=== PATIENT | female | born 1965 | race Caucasian/White ===

== ENCOUNTER → 2016-09-24 | Outpatient (CLI) | payer BC ==
[2016-09-24 13:38] LABS: Basophils % (A) 1 %; CHCM 33.6; Eosinophils # (A) 0.1 k/uL (0-0.7); Eosinophils % (A) 2 %; HCT 41.8 % (34.0-46.0); HDW 2.93; HGB 13.6 gm/dL (11.4-16.0); Luc # (Auto) 0.07; Luc % (Auto) 2; Lymphocytes # (A) 0.4 k/uL (1.0-4.8); Lymphocytes % (A) 13 %; MCH 31.2 pg (25.0-35.0); MCHC 32.5 g/dL (31.0-37.0); MCV 95.8 fL (80.0-100.0); Mean Platelet Volume 6.4; Monocytes # (A) 0.1 k/uL (0-1.0); Monocytes % (A) 4 %; Neutrophils # (A) 2.4 k/uL (1.3-7.7); Neutrophils % (A) 77 %; RBC 4.36 m/uL (3.80-5.40); WBC 3.1 k/uL (3.8-10.6); WBC (Perox) 3.26
[2016-09-24 14:07] LABS: ALT 31 U/L (9-52); AST 20 U/L (14-36); Alkaline Phosphatase 53 U/L (38-126); Anion Gap 11 mmol/L; Blood Urea Nitrogen 12 mg/dL (7-17); Calcium 9.5 mg/dL (8.4-10.2); Carbon Dioxide 27 mmol/L (22-30); Chloride 102 mmol/L (98-107); Glucose 87 mg/dL (74-99); Non-African American GFR(MDRD) 58 (>60 ml/min/1.73 sqM); Potassium 4.9 mmol/L (3.5-5.1); Sodium 140 mmol/L (137-145); Total Bilirubin 0.8 mg/dL (0.2-1.3); Total Protein 7.1 g/dL (6.3-8.2)
== END | disposition home or self-care (01) ==
LOC: LABWHC1 12:55
PROVIDERS: ATTEND Physician Assistant
DX: K50.90 Crohn's disease, unspecified, without complications (principal)
CPT/HCPCS: 36415; 80053; 85025

== ENCOUNTER → 2016-10-13 | Outpatient (CLI) | payer BC ==
--- NOTE | 2016-10-13 15:04 | BD ---
EXAMINATION TYPE: MG DEXA axial skeleton. DATE OF EXAM: 10/13/2016 2:53 PM COMPARISON: NONE CLINICAL HISTORY: POST MENOPAUSAL Height: 5'5 1/2 Weight: 137 FRAX RISK QUESTIONS: Alcohol (3 or more units per day): no Family History (Parent hip fracture): no Glucocorticoids (More than 3mos): yes (Ex: prednisone, prednisolone, methylprednisolone, dexamethasone, and hydrocortisone). History of Fracture in Adulthood: no Secondary Osteoporosis: 1. Type 1 Diabetes: no 2. Hyperthyroidism: no 3. Menopause before 45: no 4. Malnutrition: no 5. Chronic liver disease: no Rheumatoid Arthritis: no Current Tobacco Use: no RISK FACTORS HISTORY OF: Diet low in dairy products/other sources of calcium: Postmenopausal woman: Take estrogen and/or progesterone medications: How lon months MEDICATIONS: Prednisone or other steroids: How Long: off and on for 20 years because of chrons disease Additional Medications: vitamin D , B12 shot, xanax, anxiety , chrons disease, pain medication Additional History: chrons, post menopausal EXAM MEASUREMENTS: Bone mineral densitometry was performed using the [employer] System. Bone mineral density as measured about the Lumbar spine is: ----- L1-L4(G/cm2): 1.208 T Score Values are as follows: ----- L2: 0.0 ----- L3: 0.4 ----- L4: -0.3 ----- L1-L4: 0.2 Bone mineral density about the R hip (g/cm2): 0.935 Bone mineral density about the L hip (g/cm2): 0.898 T Score values are as follows: -----R Neck: -0.7 -----L Neck: -1.0 -----R Intertrochanter: -1.7 -----L Intertrochanter: -1.7 IMPRESSION: Osteopenia (T Score between -2.5 and -1 as noted by T :score values :Grady Hips There is slightly increased risk of fracture and the patient may be considered for treatment. Re-Screen 1-2 years. NOTE: T-SCORE=SD OF THE YOUNG ADULT MEAN.
--- NOTE | 2016-10-14 10:28 | MM ---
Reason for exam: screening (asymptomatic). Last mammogram was performed 1 year ago. History: Patient is postmenopausal, has history of other cancer at age 35, and is nulliparous. Family history of premenopausal breast cancer in paternal cousin at age 45. Took hormonal contraceptives for 4 years. Taking estrogen for 4 months beginning at age 50. Taking progesterone for 4 months beginning at age 50. Physical Findings: A clinical breast exam by your physician is recommended on an annual basis and results should be correlated with mammographic findings. MG 3D Screening Mammo W/Cad Bilateral CC and MLO view(s) were taken. Prior study comparison: October 09, 2015, bilateral MG 3d screening mammo w/cad. September 20, 2014, bilateral MG screening mammo w CAD. The breast tissue is heterogeneously dense. This may lower the sensitivity of mammography. ASSESSMENT: Negative, BI-RAD 1 RECOMMENDATION: Routine screening mammogram of both breasts in 1 year.
== END | disposition home or self-care (01) ==
LOC: RADMAMWWP 14:13
PROVIDERS: ATTEND Obstetrics & Gynecology
DX: Z12.31 Encounter for screening mammogram for malignant neoplasm of breast (principal); M85.852 Other specified disorders of bone density and structure, left thigh; M85.851 Other specified disorders of bone density and structure, right thigh; N95.1 Menopausal and female climacteric states
CPT/HCPCS: 77080; 77063; G0202

== ENCOUNTER → 2017-04-07 | Outpatient (CLI) | payer BC ==
[2017-04-07 11:13] LABS: Basophils % (A) 1 %; CH 33.2; CHCM 33.8; Eosinophils # (A) 0.6 k/uL (0-0.7); Eosinophils % (A) 13 %; HCT 47.4 % (34.0-46.0); HDW 2.78; Luc # (Auto) 0.19; Luc % (Auto) 4; Lymphocytes # (A) 0.6 k/uL (1.0-4.8); Lymphocytes % (A) 14 %; MCH 33.2 pg (25.0-35.0); MCHC 33.7 g/dL (31.0-37.0); MCV 98.5 fL (80.0-100.0); Mean Platelet Volume 7.1; Monocytes # (A) 0.2 k/uL (0-1.0); Monocytes % (A) 5 %; Neutrophils # (A) 2.8 k/uL (1.3-7.7); Neutrophils % (A) 63 %; RBC 4.82 m/uL (3.80-5.40); RDW 13.8 % (11.5-15.5); WBC 4.4 k/uL (3.8-10.6); WBC (Perox) 4.63
[2017-04-07 11:22] LABS: ALT 33 U/L (9-52); AST 30 U/L (14-36); Alkaline Phosphatase 68 U/L (38-126); Anion Gap 10 mmol/L; Blood Urea Nitrogen 12 mg/dL (7-17); Calcium 9.6 mg/dL (8.4-10.2); Carbon Dioxide 27 mmol/L (22-30); Chloride 106 mmol/L (98-107); Glucose 88 mg/dL (74-99); Non-African American GFR(MDRD) >60 (>60 ml/min/1.73 sqM); Potassium 4.6 mmol/L (3.5-5.1); Sodium 143 mmol/L (137-145); Total Bilirubin 0.4 mg/dL (0.2-1.3); Total Protein 7.6 g/dL (6.3-8.2)
== END | disposition home or self-care (01) ==
LOC: LABWHC1 10:40
PROVIDERS: ATTEND Physician Assistant
DX: K50.90 Crohn's disease, unspecified, without complications (principal)
CPT/HCPCS: 36415; 80053; 85025

== ENCOUNTER → 2017-10-08 | Outpatient (CLI) | payer BC ==
[2017-10-08 13:04] LABS: Basophils % (A) 1 %; Eosinophils # (A) 0.4 k/uL (0-0.7); Eosinophils % (A) 9 %; HCT 42.7 % (34.0-46.0); HGB 14.3 gm/dL (11.4-16.0); Lymphocytes # (A) 0.5 k/uL (1.0-4.8); Lymphocytes % (A) 12 %; MCHC 33.6 g/dL (31.0-37.0); MCV 98.2 fL (80.0-100.0); Mean Platelet Volume 6.6; Monocytes # (A) 0.1 k/uL (0-1.0); Monocytes % (A) 3 %; Neutrophils # (A) 3.5 k/uL (1.3-7.7); Neutrophils % (A) 75 %; Platelet Count 305 k/uL (150-450); RBC 4.35 m/uL (3.80-5.40); RDW 14.8 % (11.5-15.5); WBC 4.6 k/uL (3.8-10.6)
[2017-10-08 13:27] LABS: ALT 13 U/L (9-52); AST 19 U/L (14-36); Albumin 4.3 g/dL (3.5-5.0); Alkaline Phosphatase 58 U/L (38-126); Anion Gap 9 mmol/L; Blood Urea Nitrogen 14 mg/dL (7-17); Calcium 9.9 mg/dL (8.4-10.2); Carbon Dioxide 30 mmol/L (22-30); Chloride 103 mmol/L (98-107); Glucose 90 mg/dL (74-99); Potassium 4.4 mmol/L (3.5-5.1); Sodium 142 mmol/L (137-145); Total Protein 7.3 g/dL (6.3-8.2)
== END | disposition home or self-care (01) ==
LOC: LABWHC1 12:46
PROVIDERS: ATTEND Physician Assistant
DX: K50.90 Crohn's disease, unspecified, without complications (principal)
CPT/HCPCS: 36415; 80053; 85025

== ENCOUNTER → 2017-11-03 | Outpatient (CLI) | payer BC ==
--- NOTE | 2017-11-04 14:41 | MM ---
Reason for exam: screening (asymptomatic). Last mammogram was performed 1 year and 1 month ago. History: Patient is postmenopausal, has history of other cancer at age 35, and is nulliparous. Family history of premenopausal breast cancer in paternal cousin at age 45. Took hormonal contraceptives for 4 years. Taking estrogen for 4 months beginning at age 50. Taking progesterone for 4 months beginning at age 50. Physical Findings: A clinical breast exam by your physician is recommended on an annual basis and results should be correlated with mammographic findings. MG 3D Screening Mammo W/Cad Bilateral CC and MLO view(s) were taken. Prior study comparison: October 13, 2016, bilateral MG 3d screening mammo w/cad. October 09, 2015, bilateral MG 3d screening mammo w/cad. The breast tissue is heterogeneously dense. This may lower the sensitivity of mammography. No significant changes when compared with prior studies. ASSESSMENT: Benign, BI-RAD 2 RECOMMENDATION: Routine screening mammogram of both breasts in 1 year.
== END | disposition home or self-care (01) ==
LOC: RADMAMWWP 16:28
PROVIDERS: ATTEND Obstetrics & Gynecology
DX: Z12.31 Encounter for screening mammogram for malignant neoplasm of breast (principal); Z80.3 Family history of malignant neoplasm of breast
CPT/HCPCS: 77063; 77067

== ENCOUNTER → 2018-04-06 | Outpatient (CLI) | payer BC ==
[2018-04-06 11:53] LABS: ALT 27 U/L (9-52); AST 27 U/L (14-36); Albumin 4.3 g/dL (3.5-5.0); Alkaline Phosphatase 52 U/L (38-126); Anion Gap 8 mmol/L; Blood Urea Nitrogen 11 mg/dL (7-17); Calcium 9.8 mg/dL (8.4-10.2); Carbon Dioxide 29 mmol/L (22-30); Chloride 103 mmol/L (98-107); Cholesterol 201 mg/dL (<200); Glucose 89 mg/dL (74-99); HDL Cholesterol 68 mg/dL (40-60); LDL Cholesterol,Calculated 119 mg/dL (0-99); Potassium 4.2 mmol/L (3.5-5.1); Sodium 140 mmol/L (137-145); Total Bilirubin 0.9 mg/dL (0.2-1.3); Total Protein 7.2 g/dL (6.3-8.2); Triglycerides 71 mg/dL (<150)
[2018-04-06 12:03] LABS: Basophils % (A) 0 %; Eosinophils # (A) 0.4 k/uL (0-0.7); Eosinophils % (A) 9 %; HCT 42.3 % (34.0-46.0); HGB 14.2 gm/dL (11.4-16.0); Lymphocytes # (A) 0.6 k/uL (1.0-4.8); Lymphocytes % (A) 14 %; MCH 31.9 pg (25.0-35.0); MCHC 33.6 g/dL (31.0-37.0); Monocytes # (A) 0.2 k/uL (0-1.0); Monocytes % (A) 4 %; Neutrophils % (A) 71 %; Platelet Count 287 k/uL (150-450); RBC 4.46 m/uL (3.80-5.40); RDW 13.7 % (11.5-15.5); WBC 4.2 k/uL (3.8-10.6)
== END | disposition home or self-care (01) ==
LOC: LABWHC1 11:12
PROVIDERS: ATTEND Physician Assistant
DX: K50.90 Crohn's disease, unspecified, without complications (principal)
CPT/HCPCS: 36415; 80053; 80061; 82607; 85025

== ENCOUNTER → 2018-09-29 | Outpatient (CLI) | payer BC ==
[2018-09-29 12:43] LABS: Basophils % (A) 1 %; Eosinophils # (A) 0.3 k/uL (0-0.7); Eosinophils % (A) 7 %; HCT 43.9 % (34.0-46.0); HGB 14.6 gm/dL (11.4-16.0); Lymphocytes # (A) 0.7 k/uL (1.0-4.8); Lymphocytes % (A) 15 %; MCH 32.9 pg (25.0-35.0); MCHC 33.3 g/dL (31.0-37.0); MCV 98.9 fL (80.0-100.0); Macrocytosis Slight; Mean Platelet Volume 6.4; Monocytes # (A) 0.1 k/uL (0-1.0); Monocytes % (A) 3 %; Neutrophils # (A) 3.2 k/uL (1.3-7.7); Neutrophils % (A) 73 %; Platelet Count 332 k/uL (150-450); RBC 4.44 m/uL (3.80-5.40); RDW 15.7 % (11.5-15.5); WBC 4.4 k/uL (3.8-10.6)
[2018-09-29 19:18] LABS: Albumin 4.6 g/dL (3.80-4.90); Albumin/Globulin Ratio 1.92 (1.60-3.17); Anion Gap 10.9 mmol/L (4.00-12.00); Calcium 9.9 mg/dL (8.7-10.3); Carbon Dioxide 26.1 mmol/L (21.6-31.8); Globulin 2.4 g/dL (1.6-3.3); Total Bilirubin 0.9 mg/dL (0.2-1.2)
== END | disposition home or self-care (01) ==
LOC: LABWHC1 11:59
PROVIDERS: ATTEND Physician Assistant
DX: K50.90 Crohn's disease, unspecified, without complications (principal)
CPT/HCPCS: 36415; 80053; 82607; 85025

== ENCOUNTER → 2018-09-29 | Outpatient (CLI) | payer BC ==
--- NOTE | 2018-09-29 14:33 | BD ---
EXAMINATION TYPE: Axial Bone Density DATE OF EXAM: 09/29/2018 COMPARISON: NONE CLINICAL HISTORY: Height: 66 Weight: 122.9 FRAX RISK QUESTIONS: Alcohol (3 or more units per day): no Family History (Parent hip fracture): no Glucocorticoids (More than 3mos): no (Ex: prednisone, prednisolone, methylprednisolone, dexamethasone, and hydrocortisone). History of Fracture in Adulthood: no Secondary Osteoporosis: 1. Type 1 Diabetes: no 2. Hyperthyroidism: no 3. Menopause before 45: no 4. Malnutrition: yes 5. Chronic liver disease: no Rheumatoid Arthritis: no Current Tobacco Use: no RISK FACTORS HISTORY OF: Family History of Osteoporosis: no Active: yes Diet low in dairy products/other sources of calcium: no Postmenopausal woman: around age 46 Take estrogen and/or progesterone medications: yes How lon years Lost more than 2 inches in height since high school: no MEDICATIONS: imuran, hydrocodone, lexapro, xanax Additional History: EXAM MEASUREMENTS: Bone mineral densitometry was performed using the [employer] System. Bone mineral density as measured about the Lumbar spine is: ----- L1-L4(G/cm2): 1.192 T Score Values are as follows: ----- L2: -0.2 ----- L3: 0.3 ----- L4: -0.2 ----- L1-L4: 0.1 Bone mineral density has: decreased- 0.8 % since study of: 10.13.2016 Bone mineral density about the R hip (g/cm2): 0.917 Bone mineral density about the L hip (g/cm2): 0.869 T Score values are as follows: -----R Neck: -0.9 -----L Neck: -1.2 -----R Total: -1.2 -----L Total: -1.6 Bone mineral density has: decreased -4.3 study of: 10.13.2016 IMPRESSION: Osteopenia bilateral hips. NOTE: T-SCORE=SD OF THE YOUNG ADULT MEAN.
--- NOTE | 2018-10-03 08:38 | MM ---
Reason for exam: screening (asymptomatic). Last mammogram was performed 11 months ago. History: Patient is postmenopausal, has history of other cancer at age 35, and is nulliparous. Family history of premenopausal breast cancer in paternal cousin at age 45. Took hormonal contraceptives for 4 years. Taking estrogen for 4 months beginning at age 50. Taking progesterone for 4 months beginning at age 50. Physical Findings: A clinical breast exam by your physician is recommended on an annual basis and results should be correlated with mammographic findings. MG 3D Screening Mammo W/Cad Bilateral CC, MLO, and XCCL view(s) were taken. Prior study comparison: November 03, 2017, bilateral MG 3d screening mammo w/cad. October 13, 2016, bilateral MG 3d screening mammo w/cad. The breast tissue is heterogeneously dense. This may lower the sensitivity of mammography. There is no discrete abnormality. ASSESSMENT: Negative, BI-RAD 1 RECOMMENDATION: Routine screening mammogram of both breasts in 1 year.
== END | disposition home or self-care (01) ==
LOC: RADMAMWWP 11:39
PROVIDERS: ATTEND Obstetrics & Gynecology
DX: Z12.31 Encounter for screening mammogram for malignant neoplasm of breast (principal); M85.851 Other specified disorders of bone density and structure, right thigh; M85.852 Other specified disorders of bone density and structure, left thigh
CPT/HCPCS: 77063; 77067; 77080

== ENCOUNTER → 2019-02-14 | Outpatient (CLI) | payer BC ==
[2019-02-14 13:45] LABS: Basophils % (A) 1 %; Eosinophils # (A) 0.1 k/uL (0-0.7); Eosinophils % (A) 3 %; HCT 41.8 % (34.0-46.0); HGB 13.7 gm/dL (11.4-16.0); Lymphocytes # (A) 0.6 k/uL (1.0-4.8); Lymphocytes % (A) 18 %; MCH 31.8 pg (25.0-35.0); MCHC 32.9 g/dL (31.0-37.0); MCV 96.5 fL (80.0-100.0); Mean Platelet Volume 6.6; Monocytes # (A) 0.2 k/uL (0-1.0); Monocytes % (A) 5 %; Neutrophils # (A) 2.3 k/uL (1.3-7.7); Neutrophils % (A) 72 %; Platelet Count 262 k/uL (150-450); RBC 4.33 m/uL (3.80-5.40); RDW 14.6 % (11.5-15.5); WBC 3.2 k/uL (3.8-10.6)
[2019-02-15 03:47] LABS: African American GFR (CKD) 73.4 (60.0-200.0); Albumin 4.2 g/dL (3.80-4.90); Albumin/Globulin Ratio 1.75 (1.60-3.17); Anion Gap 6.9 mmol/L (4.00-12.00); Calcium 9.5 mg/dL (8.7-10.3); Carbon Dioxide 28.1 mmol/L (21.6-31.8); Globulin 2.4 g/dL (1.6-3.3); Potassium 4.3 mmol/L (3.5-5.5); Total Bilirubin 0.5 mg/dL (0.3-1.2); Total Protein 6.6 g/dL (6.2-8.2)
== END | disposition home or self-care (01) ==
LOC: LABWHC1 13:02
PROVIDERS: ATTEND Physician Assistant
DX: K50.90 Crohn's disease, unspecified, without complications (principal)
CPT/HCPCS: 36415; 80053; 82607; 85025

== ENCOUNTER → 2020-02-09 | Outpatient (CLI) | payer MEDICARE ==
[2020-02-09 11:29] LABS: Basophils % (A) 1 %; Eosinophils # (A) 0.1 k/uL (0-0.7); Eosinophils % (A) 4 %; HCT 36.3 % (34.0-46.0); HGB 11.8 gm/dL (11.4-16.0); Hypochromasia Slight; Lymphocytes # (A) 0.5 k/uL (1.0-4.8); Lymphocytes % (A) 18 %; MCH 32.8 pg (25.0-35.0); MCHC 32.7 g/dL (31.0-37.0); MCV 100.3 fL (80.0-100.0); Macrocytosis Slight; Mean Platelet Volume 7.3; Monocytes # (A) 0.2 k/uL (0-1.0); Monocytes % (A) 7 %; Neutrophils # (A) 1.8 k/uL (1.3-7.7); Neutrophils % (A) 68 %; Platelet Count 320 k/uL (150-450); RBC 3.62 m/uL (3.80-5.40); WBC 2.7 k/uL (3.8-10.6)
[2020-02-09 12:35] LABS: Erythrocyte Sedimentation Rate 6 mm/hr (0-20)
[2020-02-09 17:14] LABS: ALT 16 U/L (8-44); AST 29 U/L (13-35); African American GFR (CKD) 82.8 (60.0-200.0); Albumin/Globulin Ratio 1.91 (1.60-3.17); Alkaline Phosphatase 76 U/L (41-126); BUN/Creat Ratio 15.56 Ratio (12.00-20.00); C Reactive Protein <0.4 mg/dL (0.0-0.8); Carbon Dioxide 25.4 mmol/L (21.6-31.8); Chloride 108 mmol/L (96-109); Globulin 2.2 g/dL (1.6-3.3); Glucose 79 mg/dL (70-110); Non-African American GFR(CKD) 71.5 (60.0-200.0); Potassium 3.8 mmol/L (3.5-5.5); Sodium 140 mmol/L (135-145); Total Bilirubin 0.4 mg/dL (0.3-1.2); Total Protein 6.4 g/dL (6.2-8.2)
== END | disposition home or self-care (01) ==
LOC: LABWHC1 10:04
PROVIDERS: ATTEND Physician Assistant
DX: K50.90 Crohn's disease, unspecified, without complications (principal)
CPT/HCPCS: 36415; 80053; 82607; 85025; 85652; 86140

== ENCOUNTER → 2020-03-04 | Outpatient (CLI) | payer MEDICARE ==
--- NOTE | 2020-03-06 10:23 | MM ---
Reason for exam: screening (asymptomatic). Last mammogram was performed 1 year and 5 months ago. History: Patient is postmenopausal, has history of other cancer at age 35, and is nulliparous. Family history of premenopausal breast cancer in paternal cousin at age 45. Took hormonal contraceptives for 4 years. Taking estrogen for 4 months beginning at age 50. Taking progesterone for 4 months beginning at age 50. Physical Findings: A clinical breast exam by your physician is recommended on an annual basis and results should be correlated with mammographic findings. MG 3D Screening Mammo W/Cad Bilateral CC and MLO view(s) were taken. Prior study comparison: September 29, 2018, bilateral MG 3d screening mammo w/cad. November 03, 2017, bilateral MG 3d screening mammo w/cad. The breast tissue is heterogeneously dense. This may lower the sensitivity of mammography. No significant changes when compared with prior studies. ASSESSMENT: Benign, BI-RAD 2 RECOMMENDATION: Routine screening mammogram of both breasts in 1 year.
== END | disposition home or self-care (01) ==
LOC: RADMAMWWP 09:23
PROVIDERS: ATTEND Obstetrics & Gynecology
DX: Z12.31 Encounter for screening mammogram for malignant neoplasm of breast (principal)
CPT/HCPCS: 77063; 77067

== ENCOUNTER → 2021-01-17 | Outpatient (CLI) | payer MEDICARE ==
[2021-01-17 21:37] LABS: Basophils # (A) 0.04 X 10*3/uL (0.00-0.10); Basophils % (A) 0.9 %; Eosinophils # (A) 0.15 X 10*3/uL (0.04-0.35); Eosinophils % (A) 3.4 %; HCT 26.9 % (37.2-46.3); HGB 7.8 g/dL (12.0-15.0); Lymphocytes # (A) 0.46 X 10*3/uL (0.90-5.00); Lymphocytes % (A) 10.4 %; MCH 25.7 pg (27.0-32.0); MCV 88.8 fL (80.0-97.0); Mean Platelet Volume 9.8 fL (9.5-12.2); Monocytes # (A) 0.24 X 10*3/uL (0.20-1.00); Monocytes % (A) 5.4 %; Neutrophils % (A) 79.4 %; Platelet Count 487 X 10*3/uL (140-440); RBC 3.03 X 10*6/uL (4.10-5.20); RDW 18.2 % (11.5-14.5); WBC 4.41 X 10*3/uL (4.50-10.00)
[2021-01-18 00:51] LABS: Erythrocyte Sedimentation Rate 35 mm/Hr (0-30)
[2021-01-18 06:08] LABS: ALT <8 U/L (8-44); AST 14 U/L (13-35); African American GFR (CKD) 82.3 (60.0-200.0); Albumin/Globulin Ratio 1.73 (1.60-3.17); Alkaline Phosphatase 77 U/L (41-126); BUN/Creat Ratio 18.89 Ratio (12.00-20.00); C Reactive Protein <0.4 mg/dL (0.0-0.8); Calcium 9.5 mg/dL (8.7-10.3); Carbon Dioxide 23.9 mmol/L (21.6-31.8); Chloride 106 mmol/L (96-109); Globulin 2.6 g/dL (1.6-3.3); Glucose 98 mg/dL (70-110); Potassium 3.9 mmol/L (3.5-5.5); Sodium 142 mmol/L (135-145); Total Bilirubin 0.6 mg/dL (0.3-1.2); Total Protein 7.1 g/dL (6.2-8.2)
== END | disposition home or self-care (01) ==
LOC: LABWHC1 10:48
PROVIDERS: ATTEND Physician Assistant
DX: K50.90 Crohn's disease, unspecified, without complications (principal)
CPT/HCPCS: 36415; 80053; 82607; 85025; 85652; 86140

== ENCOUNTER 2021-01-31 13:13 | Day surgery (SDC) | payer MEDICARE ==
[2021-01-30 12:05] VITALS: BMI 17.7
[~2021-01-31 13:13] MED LIST: LACTATED RINGERS 1,000 ML IV SCH
[2021-01-31 13:44] VITALS: RESP 16; TEMP 97.3
[2021-01-31] MEDS ORDERED: LIDOCAINE 1% (10MG/ML) FOR IV START INTRADERMA ONE (13:44)
[2021-01-31 13:49] LABS: Glucose,Whole Blood 115 mg/dL (75-99)
[2021-01-31] MEDS ORDERED: PROPOFOL 10 MG/ML 20 ML VIAL IV ONE (14:15)
[2021-01-31] MEDS ORDERED: MIDAZOLAM 2 MG/2 ML VIAL ONE (14:15)
--- NOTE | 2021-01-31 14:39 | P.PCN ---
Date of Procedure: 01/31/21 Procedure(s) Performed: Brief history: Patient is a pleasant 55-year-old white female scheduled for an elective upper endoscopy as well as flexible sigmoidoscopy as a part of evaluation of long- standing history of Crohn's colitis and iron deficiency anemia. She status post subtotal colectomy with ileorectal anastomosis in 1989. She has been maintained on Imuran 100 mg daily since 2011. She was recently noted to have anemia with hemoglobin of 8 g/dL and has a flareup with rectal bleeding for the last 3 months. She was started on prednisone 30 mg daily for a week ago and symptoms are gradually improving. She is scheduled for an upper endoscopy as well as colonoscopy to evaluate further. Procedure performed: Esophagogastroduodenoscopy with biopsy Flexible sigmoidoscopy with biopsies Preoperative diagnosis: Iron deficiency anemia History of Crohn's disease, status postoperative total colectomy with ileorectal anastomosis and many years ago Anest[place]: [facility] [place] Procedure: After informed consent was obtained from the patient was brought into the endoscopy unit and IV sedation was administered by anesthesia under continuous monitoring. Initially upper endoscopy was done. The Olympus GF 160 video endoscope was inserted inserted into the mouth and esophagus intubated without any difficulty and was gradually advanced into the stomach and duodenum and carefully examined. The bulb and second part of the duodenum appeared normal. Abscesses were done from the duodenum to rule out celiac disease. The scope was then withdrawn into the stomach adequately insufflated with air and upon careful examination the antrum mild gastritis and biopsies were done from this area. The body, cardia and fundus appeared normal. The scope was then withdrawn into the esophagus. The GE junction was located at 40 cm to the incisors. It appeared regular with no erythema erosions or ulcerations. small sliding-type well hernia noted. Rest of the esophagus appeared normal. Patient tolerated the procedure well. At this time the patient continued to remain sedation. Initial digital rectal examinatio revealed tight in stenosis noted.. Upper endoscopy was then inserted in the rectum and gently advanced into the distal ileum. Approximately 40 cm from the distal ileum was visualized and appeared normal. The ileorectal anastomosis was located at 50 cm from the anal verge there was a polypoid- appearing area with friable mucosa that was biopsied. The entire rectum appeared ulcerated with mucosal friability granularity and severe inflammation and multiple biopsies were done from this area. Patient tolerated the procedure well. Impression: 1. Upper endoscopy revealed small hiatal hernia and mild antral gastritis but no evidence of esophagitis or peptic ulcer disease 2. Flexible sigmoidoscopy revealed : a) anal stenosis b) severe proctitis with mucosal friability granularity involving the entire rectum up to 12 cm from the anal verge status post multiple biopsies c) distal ileum appeared normal Recommendations: Findings of this examination were discussed with the patient as well as her family. She was advised to follow with the biopsy results. She will continue with prednisone 30 mg daily and tapering by 5 mg every week. She'll be seen in office in one week.]
[2021-01-31] MEDS ORDERED: LACTATED RINGERS 1,000 ML IV ONE (14:44)
[2021-01-31 14:46] VITALS: PULSE 75
[2021-01-31 15:24] VITALS: BP 142/87
== END 2021-01-31 15:28 | disposition home or self-care (01) ==
LOC: ORWHC2ENDO 13:13
PROVIDERS: ATTEND Internal Medicine Gastroenterology
DX: C17.2 Malignant neoplasm of ileum (principal); C20 Malignant neoplasm of rectum; K62.4 Stenosis of anus and rectum; K29.50 Unspecified chronic gastritis without bleeding; D50.9 Iron deficiency anemia, unspecified; K50.90 Crohn's disease, unspecified, without complications; K44.9 Diaphragmatic hernia without obstruction or gangrene; Z90.49 Acquired absence of other specified parts of digestive tract; K62.89 Other specified diseases of anus and rectum; Z79.891 Long term (current) use of opiate analgesic; Z79.52 Long term (current) use of systemic steroids; Z79.899 Other long term (current) drug therapy; Z88.0 Allergy status to penicillin; Z91.041 Radiographic dye allergy status
CPT/HCPCS: 88305; 43239; 45331; J2250; J2704

== ENCOUNTER → 2021-02-14 | Outpatient (CLI) | payer MEDICARE ==
--- NOTE | 2021-02-25 14:14 | PE ---
Nuclear medicine PET/CT HISTORY: C 20, adenocarcinoma rectum, initial Patient received 9.7 mCi F-18 FDG intravenously, delayed scanning was performed from skull base throu gh the pelvis, localization and attenuation correction CT scan was performed. No comparisons Chest and neck: There is no cervical or supraclavicular adenopathy, no mediastinal, axillary, or rubén r adenopathy. No evident pleural or pericardial effusion. There is no evident lung mass. No suspiciou s uptake within the chest or neck. Some apical pleural thickening is noted incidentally. ABDOMEN: There is abnormal uptake seen along the rectum, some diffuse colonic wall thickening is pres ent, eccentric uptake is noted to the right of midline at the level of the distal rectum towards the anus, there is associated soft tissue at this level, lesion measures approximately 2 cm., SUV 8.7 The re is no inguinal adenopathy. In the perirectal fat there is adenopathy, axial image 217 shows a node measuring 11 mm, no definite uptake identified. Subcentimeter nodes are also present. Additional glenn nopathy on axial image 197, short axis measurement approximately 12 mm, axial image 213 shows a node with short axis measurement of 11 mm. Left adnexal cystic structure measures 2.5 cm. There is no evident liver mass. No aortocaval adenopat hy or suspicious uptake. There is no ascites. Postop changes are noted to the bowel in the left lower quadrant. Osseous structures show no suspicious uptake. IMPRESSION: Findings consistent with patient's history of rectal carcinoma as described.
== END | disposition home or self-care (01) ==
LOC: RADPETMAIN 16:23
PROVIDERS: ATTEND Internal Medicine Gastroenterology
DX: C20 Malignant neoplasm of rectum (principal); R59.0 Localized enlarged lymph nodes
CPT/HCPCS: 78815; A9552

== ENCOUNTER 2021-03-03 08:57 | Day surgery (SDC) | payer MEDICARE ==
[2021-02-28 12:04] VITALS: BMI 18.1
[~2021-03-03 08:57] MED LIST changes: +ACETAMINOPHEN TAB 500 MG TAB PO PRN; +DEXAMETHASONE SOD PHOSPHATE 4 MG/ML 1 ML VIAL IV ONE; +HEPARIN SODIUM,PORCINE/PF 5,000 UNIT/0.5 ML SYRINGE SQ PRN; +HYDROmorphone 0.5 MG/0.5 ML SYRINGE IVP PRN; -LACTATED RINGERS 1,000 ML IV SCH; +ONDANSETRON 4 MG/2 ML VIAL IVP ONE; +Pre Op ABX Message 1 EACH MISC MISCELLANE ONE
[2021-03-03] MEDS: LACTATED RINGERS 1,000 ML IV SCH ×2 (09:42→10:42)
--- NOTE | 2021-03-03 10:32 | P.GSHP ---
History of Present Illness H&P Date: 03/03/21 Chief Complaint: Rectal cancer 55-year-old female with recent diagnosis of rectal cancer. Here today for Port-A-Cath placement. Patient to begin therapy later this week. Following with colorectal surgery at [facility]. Past Medical History Past Medical History: Cancer Additional Past Medical History / Comment(s): Crohn's disease, malignant melanoma removed, rectal cancer, anemia History of Any Multi-Drug Resistant Organisms: None Reported Past Surgical History: Bowel Resection, Orthopedic Surgery, Tubal Ligation Additional Past Surgical History / Comment(s): sub total colectomy, colonoscopies, arthroscopy repair left knee Past Anesthesia/Blood Transfusion Reactions: Previous Problems w/ Anesthesia Additional Past Anesthesia/Blood Transfusion Reaction / Comment(s): wakes up during procedures, "seems to need alot for colonoscopies" Smoking Status: Never smoker - Past Family History Mother Family Medical History: Cancer Additional Family Medical History / Comment(s): lung Father Family Medical History: Cancer Additional Family Medical History / Comment(s): prostate Sister(s) Family Medical History: Deep Vein Thrombosis (DVT), Pulmonary Embolus Medications and Allergies Home Medications Medication Instructions Recorded Confirmed Type ALPRAZolam [Xanax] 1 mg PO Q8H PRN 01/30/21 02/28/21 History Cholecalciferol [Vitamin D3 (25 25 mcg PO DAILY 01/30/21 02/28/21 History Mcg = 1000 Iu)] Cyanocobalamin (Vitamin B-12) 5,000 mcg PO DAILY 01/30/21 02/28/21 History [Vitamin B-12] Escitalopram [Lexapro] 20 mg PO DAILY 01/30/21 02/28/21 History Estradiol 0.5 mg PO DIRECTED 01/30/21 02/28/21 History Ferrous Sulfate [Feosol] 325 mg PO BID 01/30/21 02/28/21 History HYDROcodone/APAP 5-325MG [[place] 1 tab PO Q6HR PRN 01/30/21 02/28/21 History 5-325] Hydrocortisone [Anusol-Hc] 30 gm TP DIRECTED PRN 01/30/21 03/03/21 History Multivitamins, Thera [Multivitamin 1 tab PO DAILY 01/30/21 02/28/21 History (formulary)] azaTHIOprine [Imuran] 100 mg PO DAILY 01/30/21 02/28/21 History medroxyPROGESTERone [Provera] 2.5 mg PO DIRECTED 01/30/21 02/28/21 History predniSONE 20 mg PO DAILY 01/30/21 02/28/21 History Allergies Allergy/AdvReac Type Severity Reaction Status Date / Time amoxicillin Allergy Rash/Hives Verified 03/03/21 09:34 clavulanic acid Allergy Rash/Hives Verified 03/03/21 09:34 [From Augmentin] Iodinated Contrast Media Allergy Rash/Hives/throat Verified 03/03/21 09:34 swelling Penicillins Allergy Rash/Hives Verified 03/03/21 09:34 Surgical - Exam Vital Signs Temp Pulse Resp BP Pulse Ox 97.6 F 63 16 131/62 99 03/03/21 09:28 03/03/21 09:28 03/03/21 09:28 03/03/21 09:28 03/03/21 09:28 Physical exam: General: Well-developed, somewhat malnourished appearing HEENT: Normocephalic, sclerae nonicteric Abdomen: Nontender, nondistended Extremities: No edema Neuro: Alert and oriented Assessment and Plan (1) Rectal cancer Narrative/Plan: 55-year-old female with recent diagnosis of rectal cancer. We'll proceed with Port-A-Cath placement at this time. Risks of bleeding, infection, DVT, pneumothorax, catheter malfunction, anesthesia related complications were discussed. The patient understands and wishes to proceed. Current Visit: Yes Status: Acute Code(s): C20 - MALIGNANT NEOPLASM OF RECTUM SNOMED Code(s): 601187722
[2021-03-03] MEDS ORDERED: PROPOFOL 10 MG/ML 20 ML VIAL IV ONE (10:40)
[2021-03-03] MEDS ORDERED: fentaNYL (PF) 50 MCG/ML 2 ML AMP ONE (10:40)
[2021-03-03] MEDS ORDERED: LIDOCAINE 1% INJ 10MG/ML (20 ML MDV) ONE (10:40)
[2021-03-03] MEDS ORDERED: HEPARIN SODIUM,PORCINE 100 UNIT/ML 5 ML VIAL IV ONE (11:06)
[2021-03-03] MEDS ORDERED: LIDOCAINE 1% INJ 10MG/ML (20 ML MDV) SQ ONE ×2 (11:07)
[2021-03-03] MEDS ORDERED: NALOXONE 0.4 MG/ML 1 ML VIAL IV PRN (11:33)
--- NOTE | 2021-03-03 11:34 | P.OP ---
Date of Procedure: 03/03/21 Procedure(s) Performed: PREOPERATIVE DIAGNOSIS: Rectal cancer POSTOPERATIVE DIAGNOSIS: Same PROCEDURE: Port-A-Cath placement with fluoroscopic and ultrasound guidance SURGEON: Vera EBL: Minimal ANESTHESIA: Sedation COMPLICATIONS: None OPERATIVE PROCEDURE: Patient was brought and placed on the operative table in the supine position. The patient was sedated per anesthesia that time. The chest and neck were prepped and draped in usual sterile fashion. The ultrasound probe was used to identify the location of the right internal jugular vein. The skin was localized with lidocaine. The Seldinger needle was advanced into the IJ under ultrasound guidance. The wire was advanced through the needle under fluoroscopic guidance into the superior vena cava. A port pocket was created in the right infraclavicular location. The catheter was tunneled from the wire entrance site to the port pocket. The port was then connected to the catheter. The dilator introducer was threaded over the guidewire. The guidewire and dilator were then removed. The catheter was advanced through the introducer and introducer was then removed. The tip was seen to be in the right atrial junction via fluoroscopy. A picture of the radiograph showing the tip at the radial digital junction was taken. Port was flushed with both saline and a Hep- Lock solution. There was good flow both in and out of the port. The port was sutured in underlying tissues using 3-0 silk sutures. The subcutaneous tissues were reapproximated using 3-0 Vicryl sutures and the skin at both locations using 4-0 Monocryl sutures. Skin glue and sterile dressings then applied. DISPOSITION: Stable to recovery room
[2021-03-03 11:38] VITALS: TEMP 97.2
--- NOTE | 2021-03-03 12:23 | XR ---
EXAMINATION TYPE: XR chest 1V confirm line [facility] DATE OF EXAM: 03/03/2021 CLINICAL HISTORY: Check line. TECHNIQUE: Portable frontal view of the chest. COMPARISON: 06/01/2014 FINDINGS: There is a right internal jugular central venous MediPort, with distal tip over the distal superior v kristina cava. No evidence of pneumothorax. The cardiomediastinal silhouette is within normal limits for size. Pulmonary vasculature is normal. T here is no focal air space opacity. No pleural effusion. No acute displaced osseous fracture. IMPRESSION: Right internal jugular central venous MediPort distal tip over the distal superior vena cava. No pneu mothorax.
[2021-03-03 13:08] VITALS: BP 107/64; PULSE 57; RESP 18
--- NOTE | 2021-03-03 13:28 | FL ---
EXAMINATION TYPE: FL guided central line placement DATE OF EXAM: 03/03/2021 CLINICAL HISTORY: Port-A-Cath placement TECHNIQUE: Fluoroscopy. COMPARISON: None. FINDINGS: Fluoroscopic guidance was provided during right internal jugular central venous MediPort p lacement performed by Dr. Gamez. A total of 8 seconds of fluoroscopic time was utilized during the p rocedure and 1 spot images was acquired. MediPort catheter distal tip at the level of the cavoatrial junction. IMPRESSION: As Above.
== END 2021-03-03 13:39 | disposition home or self-care (01) ==
LOC: OR 08:57
PROVIDERS: ATTEND Surgery
DX: C20 Malignant neoplasm of rectum (principal); K50.90 Crohn's disease, unspecified, without complications; Z85.820 Personal history of malignant melanoma of skin; D64.9 Anemia, unspecified; Z90.49 Acquired absence of other specified parts of digestive tract; Z98.51 Tubal ligation status; F41.9 Anxiety disorder, unspecified; F32.9 Major depressive disorder, single episode, unspecified; Z98.890 Other specified postprocedural states; Z80.1 Family history of malignant neoplasm of trachea, bronchus and lung; Z80.42 Family history of malignant neoplasm of prostate; Z82.49 Family history of ischemic heart disease and other diseases of the circulatory system; Z79.3 Long term (current) use of hormonal contraceptives; Z79.890 Hormone replacement therapy; Z79.52 Long term (current) use of systemic steroids; Z79.899 Other long term (current) drug therapy; Z88.0 Allergy status to penicillin; Z91.041 Radiographic dye allergy status
CPT/HCPCS: 77001; 36561; 76937; C1788; J1642; J2405; J2001; J3010; J2704; J1644

== ENCOUNTER 2021-03-24 12:20 | Inpatient (IN) | payer MEDICARE ==
[2021-03-24] MEDS ORDERED: IBUPROFEN 600 MG TAB PO STA (14:00)
[2021-03-24] MEDS ORDERED: ACETAMINOPHEN TAB 500 MG TAB PO STA (14:00)
[2021-03-24] MEDS ORDERED: CEFEPIME 2 GM in SODIUM CHLORIDE 0.9% 100 ML IVPB STA (14:00)
--- NOTE | 2021-03-24 14:03 | ED ---
General Adult HPI - General Chief complaint: Recheck/Abnormal Lab/Rx Stated complaint: abn labs Time Seen by Provider: 03/24/21 12:55 Source: patient, RN notes reviewed, old records reviewed Mode of arrival: ambulatory Limitations: no limitations - History of Present Illness Initial comments: This is a 55-year-old female who presents emergency Department with a past medical history significant for Crohn's disease in January she was diagnosed with stage III rectal cancer. Patient states she had her first chemotherapy treatment one week ago she was in today to get her second one he micaela her blood and realized her white count was very low and she had a fever vomited once she was sent to the emergency department. Patient denies any chills patient denies any cough patient denies any difficulty breathing shortness of breath. Patient denies chest pain or palpitations. Patient denies any abdominal pain patient denies any vomiting or change in bowel habits. Patient denies any dysuria hematuria urinary frequency. Patient denies any skin rashes or areas of erythema or any lesions. Patient herself has really no complaints and she is vaccinated for COVID - Related Data Home Medications Medication Instructions Recorded Confirmed ALPRAZolam [Xanax] 1 mg PO BID PRN 01/30/21 03/24/21 Cholecalciferol [Vitamin D3 (25 25 mcg PO DAILY 01/30/21 03/24/21 Mcg = 1000 Iu)] Cyanocobalamin (Vitamin B-12) 5,000 mcg PO DAILY 01/30/21 03/24/21 [Vitamin B-12] Escitalopram [Lexapro] 20 mg PO DAILY 01/30/21 03/24/21 Estradiol 0.5 mg PO Q48H 01/30/21 03/24/21 Ferrous Sulfate [Feosol] 325 mg PO BID 01/30/21 03/24/21 HYDROcodone/APAP 5-325MG [[place] 1 tab PO Q4H PRN 01/30/21 03/24/21 5-325] azaTHIOprine [Imuran] 100 mg PO DAILY 01/30/21 03/24/21 medroxyPROGESTERone [Provera] 2.5 mg PO Q48H 01/30/21 03/24/21 predniSONE See Taper PO DIRECTED 01/30/21 03/24/21 Estradiol 0.25 mg PO Q48H 03/24/21 03/24/21 medroxyPROGESTERone [Provera] 1.25 mg PO Q48H 03/24/21 03/24/21 Allergies Allergy/AdvReac Type Severity Reaction Status Date / Time amoxicillin Allergy Rash/Hives Verified 03/24/21 15:14 clavulanic acid Allergy Rash/Hives Verified 03/24/21 15:14 [From Augmentin] Iodinated Contrast Media Allergy Rash/Hives/throat Verified 03/24/21 15:14 swelling Penicillins Allergy Rash/Hives Verified 03/24/21 15:14 Review of Systems ROS Statement: Those systems with pertinent positive or pertinent negative responses have been documented in the HPI. ROS Other: All systems not noted in ROS Statement are negative. Past Medical History Past Medical History: Cancer Additional Past Medical History / Comment(s): Crohn's disease, malignant melanoma removed, rectal cancer, anemia History of Any Multi-Drug Resistant Organisms: None Reported Past Surgical History: Bowel Resection, Orthopedic Surgery, Tubal Ligation Additional Past Surgical History / Comment(s): sub total colectomy, colonoscopies, arthroscopy repair left knee Past Anesthesia/Blood Transfusion Reactions: Previous Problems w/ Anesthesia Additional Past Anesthesia/Blood Transfusion Reaction / Comment(s): wakes up during procedures, "seems to need alot for colonoscopies" Past Psychological History: Anxiety, Depression Smoking Status: Never smoker - Past Family History Mother Family Medical History: Cancer Additional Family Medical History / Comment(s): lung Father Family Medical History: Cancer Additional Family Medical History / Comment(s): prostate Sister(s) Family Medical History: Deep Vein Thrombosis (DVT), Pulmonary Embolus General Exam - General Exam Comments Initial Comments: GENERAL: Patient is well-developed and well-nourished. Patient is nontoxic and well- hydrated and is in mild distress. ENT: Neck is soft and supple. No significant lymphadenopathy is noted. Oropharynx is clear. Moist mucous membranes. Neck has full range of motion without eliciting any pain. EYES: The sclera were anicteric and conjunctiva were pink and moist. Extraocular movements were intact and pupils were equal round and reactive to light. Eyelids were unremarkable. PULMONARY: Unlabored respirations. Good breath sounds bilaterally. No audible rales rhonchi or wheezing was noted. CARDIOVASCULAR: There is a regular rate and rhythm without any murmurs gallops or rubs. ABDOMEN: Soft and nontender with normal bowel sounds. SKIN: Skin is clear with no lesions or rashes and otherwise unremarkable. NEUROLOGIC: Patient is alert and oriented x3. Cranial nerves II through XII are grossly intact. Motor and sensory are also intact. Normal speech, volume and content. Symmetrical smile. MUSCULOSKELETAL: Normal extremities with adequate strength and full range of motion. No lower extremity swelling or edema. No calf tenderness. LYMPHATICS: No significant lymphadenopathy is noted PSYCHIATRIC: Normal psychiatric evaluation. Limitations: no limitations Course Vital Signs 03/24/21 03/24/21 03/24/21 12:52 15:20 15:25 Temperature 100.2 F H Pulse Rate 100 72 Respiratory 18 18 18 Rate Blood Pressure 115/61 105/60 O2 Sat by Pulse 95 96 Oximetry 03/24/21 18:05 Temperature 98.6 F Pulse Rate 60 Respiratory 18 Rate Blood Pressure 98/60 O2 Sat by Pulse 100 Oximetry Medical Decision Making - Medical Decision Making I spoke with Dr. ALEXANDER agreed to admit the patient admitted the patient I wrote admitting orders. I consulted oncology. I started the patient on cefepime and Levaquin EKG shows normal sinus rhythm at 60 bpm MO interval 230 QRS is 84 Q-T intervals 428 QTC is 455. Patient's EKG shows no ST segment elevation or depression. - Lab Data Result diagrams: 03/25/21 05:13 03/25/21 05:13 Lab Results 03/24/21 03/24/21 03/24/21 Range/Units 14:32 14:32 14:32 WBC 2.1 L (3.8-10.6) k/uL RBC 3.14 L (3.80-5.40) m/uL Hgb 9.1 L (11.4-16.0) gm/dL Hct 28.7 L (34.0-46.0) % MCV 91.4 (80.0-100.0) fL MCH 29.1 (25.0-35.0) pg MCHC 31.9 (31.0-37.0) g/dL RDW 20.0 H (11.5-15.5) % Plt Count 325 (150-450) k/uL MPV 7.5 Neutrophils % (Manual) 44 % Band Neuts % (Manual) 3 % Lymphocytes % (Manual) 25 % Monocytes % (Manual) 19 % Eosinophils % (Manual) 1 % Metamyelocytes % 4 % Myelocytes % 4 % Neutrophils # (Manual) 0.90 L (1.3-7.7) k/uL Lymphocytes # (Manual) 0.53 L (1.0-4.8) k/uL Monocytes # (Manual) 0.40 (0-1.0) k/uL Eosinophils # (Manual) 0.02 (0-0.7) k/uL Metamyelocytes # (Man) 0.08 H (0) k/uL Myelocytes # (Manual) 0.08 H (0) k/uL Nucleated RBCs 0 (0-0) /100 WBC Manual Slide Review Performed Polychromasia Present Hypochromasia Moderate Poikilocytosis Slight Anisocytosis Slight Tear Drop Cells Present PT (9.0-12.0) sec INR (<1.2) APTT (22.0-30.0) sec Sodium 131 L (137-145) mmol/L Potassium 4.0 (3.5-5.1) mmol/L Chloride 101 (98-107) mmol/L Carbon Dioxide 24 (22-30) mmol/L Anion Gap 6 mmol/L BUN 19 H (7-17) mg/dL Creatinine 0.82 (0.52-1.04) mg/dL Est GFR (CKD-EPI)AfAm >90 (>60 ml/min/1.73 sqM) Est GFR (CKD-EPI)NonAf 80 (>60 ml/min/1.73 sqM) Glucose 99 (74-99) mg/dL Plasma Lactic Acid Marcelino 0.9 (0.7-2.0) mmol/L Calcium 9.0 (8.4-10.2) mg/dL Total Bilirubin 0.4 (0.2-1.3) mg/dL AST 49 H (14-36) U/L ALT 59 H (4-34) U/L Alkaline Phosphatase 129 H (38-126) U/L Total Protein 6.2 L (6.3-8.2) g/dL Albumin 3.5 (3.5-5.0) g/dL Urine Color Urine Appearance (Clear) Urine pH (5.0-8.0) Ur Specific Gary (1.001-1.035) Urine Protein (Negative) Urine Glucose (UA) (Negative) Urine Ketones (Negative) Urine Blood (Negative) Urine Nitrite (Negative) Urine Bilirubin (Negative) Urine Urobilinogen (<2.0) mg/dL Ur Leukocyte Esterase (Negative) Urine RBC (0-5) /hpf Urine WBC (0-5) /hpf Ur Squamous Epith Cells (0-4) /hpf Urine Bacteria (None) /hpf Urine Mucus (None) /hpf C. difficile (EIA) Intrp (Negative) 03/24/21 03/24/21 03/24/21 Range/Units 14:41 14:50 14:53 WBC (3.8-10.6) k/uL RBC (3.80-5.40) m/uL Hgb (11.4-16.0) gm/dL Hct (34.0-46.0) % MCV (80.0-100.0) fL MCH (25.0-35.0) pg MCHC (31.0-37.0) g/dL RDW (11.5-15.5) % Plt Count (150-450) k/uL MPV Neutrophils % (Manual) % Band Neuts % (Manual) % Lymphocytes % (Manual) % Monocytes % (Manual) % Eosinophils % (Manual) % Metamyelocytes % % Myelocytes % % Neutrophils # (Manual) (1.3-7.7) k/uL Lymphocytes # (Manual) (1.0-4.8) k/uL Monocytes # (Manual) (0-1.0) k/uL Eosinophils # (Manual) (0-0.7) k/uL Metamyelocytes # (Man) (0) k/uL Myelocytes # (Manual) (0) k/uL Nucleated RBCs (0-0) /100 WBC Manual Slide Review Polychromasia Hypochromasia Poikilocytosis Anisocytosis Tear Drop Cells PT 10.5 (9.0-12.0) sec INR 1.0 (<1.2) APTT 20.3 L (22.0-30.0) sec Sodium (137-145) mmol/L Potassium (3.5-5.1) mmol/L Chloride (98-107) mmol/L Carbon Dioxide (22-30) mmol/L Anion Gap mmol/L BUN (7-17) mg/dL Creatinine (0.52-1.04) mg/dL Est GFR (CKD-EPI)AfAm (>60 ml/min/1.73 sqM) Est GFR (CKD-EPI)NonAf (>60 ml/min/1.73 sqM) Glucose (74-99) mg/dL Plasma Lactic Acid Marcelino (0.7-2.0) mmol/L Calcium (8.4-10.2) mg/dL Total Bilirubin (0.2-1.3) mg/dL AST (14-36) U/L ALT (4-34) U/L Alkaline Phosphatase (38-126) U/L Total Protein (6.3-8.2) g/dL Albumin (3.5-5.0) g/dL Urine Color Yellow Urine Appearance Clear (Clear) Urine pH 5.5 (5.0-8.0) Ur Specific Gary 1.011 (1.001-1.035) Urine Protein Negative (Negative) Urine Glucose (UA) Negative (Negative) Urine Ketones Negative (Negative) Urine Blood Small H (Negative) Urine Nitrite Negative (Negative) Urine Bilirubin Negative (Negative) Urine Urobilinogen <2.0 (<2.0) mg/dL Ur Leukocyte Esterase Negative (Negative) Urine RBC 1 (0-5) /hpf Urine WBC 1 (0-5) /hpf Ur Squamous Epith Cells 1 (0-4) /hpf Urine Bacteria Rare H (None) /hpf Urine Mucus Rare H (None) /hpf C. difficile (EIA) Intrp Negative (Negative) Disposition Clinical Impression: Febrile neutropenia, Rectal cancer Disposition: ADMITTED IP TO THIS [facility] Time of Disposition: 14:59
[2021-03-24 14:43] LABS: Anisocytosis Slight; HCT 28.7 % (34.0-46.0); HGB 9.1 gm/dL (11.4-16.0); Hypochromasia Moderate; MCH 29.1 pg (25.0-35.0); MCHC 31.9 g/dL (31.0-37.0); MCV 91.4 fL (80.0-100.0); Mean Platelet Volume 7.5; Platelet Count 325 k/uL (150-450); Poikilocytosis Slight; RBC 3.14 m/uL (3.80-5.40); WBC 2.1 k/uL (3.8-10.6)
[2021-03-24 14:52] LABS: Anion Gap 6 mmol/L; Blood Urea Nitrogen 19 mg/dL (7-17); Carbon Dioxide 24 mmol/L (22-30); Chloride 101 mmol/L (98-107); Glucose 99 mg/dL (74-99); Sodium 131 mmol/L (137-145)
[2021-03-24 14:53] LABS: ALT 59 U/L (4-34); AST 49 U/L (14-36); African American GFR (CKD) >90 (>60 ml/min/1.73 sqM); Albumin 3.5 g/dL (3.5-5.0); Alkaline Phosphatase 129 U/L (38-126); Non-African American GFR(CKD) 80 (>60 ml/min/1.73 sqM); Total Bilirubin 0.4 mg/dL (0.2-1.3); Total Protein 6.2 g/dL (6.3-8.2)
[2021-03-24] MEDS ORDERED: LEVOFLOXACIN 750MG-D5W PMX 750 MG in DEXTROSE/WATER 1 150ML.BAG IVPB STA (14:57)
[2021-03-24] MEDS: SODIUM CHLORIDE 0.9% 500 ML 500 ML IV SCH ×2 (14:57→16:00)
--- NOTE | 2021-03-24 14:59 | XR ---
EXAMINATION TYPE: XR chest 2V DATE OF EXAM: 03/24/2021 COMPARISON: 03/03/2021 HISTORY: 55-year-old female fever and chills TECHNIQUE: PA and lateral views FINDINGS: Heart normal size. Aorta and pulmonary vasculature within normal limits. Hyperinflation. No consolida tion or pleural effusion. Right anterior chest wall injection port with catheter tip in lower SVC. IMPRESSION: Hyperinflation may relate to depth of inspiration or underlying emphysema. No acute process seen.
[2021-03-24] MEDS: PANTOPRAZOLE 40 MG/10 ML VIAL IVP SCH (15:01)
[2021-03-24] MEDS ORDERED: SODIUM CHLORIDE 0.9% 1,000 ML IV ONE (15:01)
[2021-03-24 15:17] LABS: Prothrombin Time 10.5 sec (9.0-12.0)
[2021-03-24 15:36] LABS: Band Neutrophils % 3 %; Eosinophils # (M) 0.02 k/uL (0-0.7); Lymphocytes # (M) 0.53 k/uL (1.0-4.8); Metamyelocytes # (M) 0.08 k/uL (0); Metamyelocytes % 4 %; Myelocytes # (M) 0.08 k/uL (0); Myelocytes % 4 %; Neutrophils % (M) 44 %; Nucleated Red Blood Cells 0 /100 WBC (0-0); Total Cells Counted 100
[2021-03-24 15:37] LABS: Polychromasia Present; Tear Drop Cells Present
[2021-03-24 15:40] LABS: Partial Thromboplastin Time 20.3 sec (22.0-30.0)
[2021-03-24 16:10] LABS: Appearance,Urine Clear (Clear); Bacteria,Urine Rare /hpf; Bilirubin,Urine Negative (Negative); Blood,Urine Small (Negative); Color,Urine Yellow; Glucose,Urine (UA) Negative (Negative); Ketones,Urine Negative (Negative); Leukocyte Esterase,Urine Negative (Negative); Mucus,Urine Rare /hpf; Nitrite,Urine Negative (Negative); PH, Urine 5.5 (5.0-8.0); Protein,Urine Negative (Negative); RBC,Urine 1 /hpf (0-5); Specific Gravity,Urine 1.011 (1.001-1.035); Squamous Epithelial Cell,Urine 1 /hpf (0-4); Urobilinogen,Urine <2.0 mg/dL (<2.0); WBC,Urine 1 /hpf (0-5)
[2021-03-24] MEDS ORDERED: SODIUM CHLORIDE 0.9% 500 ML 500 ML IV ONE (19:25)
[2021-03-24] MEDS: HYDROcodone/APAP 5-325MG 1 EACH TAB PO PRN (20:09)
--- NOTE | 2021-03-24 20:29 | P.HPIM ---
History of Present Illness This is a pleasant 55 years old female with past medical history of chronic Crohn disease, recently diagnosed with rectal cancer, anxiety and depression Patient presents because of fever. She has a known history of Crohn disease and chronic diarrhea about 6 bowel movements per day at baseline, 2 months ago patient was noticed getting symptoms similar to Crohn disease flare up with more diarrhea, loss of weight and abdominal pain. 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 Gomes, biopsy came back positive for rectal cancer. She was referred to Dr. Jimenez and started chemotherapy. Today 12 [facility]. to get her second cycle of chemotherapy when she was noticed to have fever of 100.1 and Showing Leukopenia of 1.6, Anemia with Hemoglobin 7.8 and Normal Platelet Count at 244K. Patient reports ongoing diarrhea with blood about 15 times per day but no abdominal pain or nausea vomiting. No chest pain or dyspnea. No urinary complaints. No rash. On admission she has fever of 100.2, blood pressure also on the low side, rest of Vitas looks stable. No labs repeated here. Labs are still pending from emergency room In the emergency room patient was started on cefepime Review of Systems CONSTITUTIONAL: No fever, no malaise, no fatigue. HEENT: No recent visual problems or hearing problems. Denied any sore throat. CARDIOVASCULAR: No orthopnea, PND, no palpitations, no syncope. PULMONARY: No shortness of breath, no cough, no hemoptysis. GASTROINTESTINAL: no nausea, no vomiting, no abdominal pain. Normoactive bowel sounds. NEUROLOGICAL: No headaches, no weakness, no numbness. HEMATOLOGICAL: Denies any bleeding or petechiae. GENITOURINARY: Denies any burning micturition, frequency, or urgency. MUSCULOSKELETAL/RHEUMATOLOGICAL: Denies any joint pain, swelling, or any muscle pain. ENDOCRINE: Denies any polyuria or polydipsia. Past Medical History Past Medical History: Cancer Additional Past Medical History / Comment(s): Crohn's disease, malignant melanoma removed, rectal cancer, anemia History of Any Multi-Drug Resistant Organisms: None Reported Past Surgical History: Bowel Resection, Orthopedic Surgery, Tubal Ligation Additional Past Surgical History / Comment(s): sub total colectomy, colonoscopies, arthroscopy repair left knee Past Anesthesia/Blood Transfusion Reactions: Previous Problems w/ Anesthesia Additional Past Anesthesia/Blood Transfusion Reaction / Comment(s): wakes up during procedures, "seems to need alot for colonoscopies" Past Psychological History: Anxiety, Depression Smoking Status: Never smoker - Past Family History Mother Family Medical History: Cancer Additional Family Medical History / Comment(s): lung Father Family Medical History: Cancer Additional Family Medical History / Comment(s): prostate Sister(s) Family Medical History: Deep Vein Thrombosis (DVT), Pulmonary Embolus Medications and Allergies Home Medications Medication Instructions Recorded Confirmed Type ALPRAZolam [Xanax] 1 mg PO BID PRN 01/30/21 03/24/21 History Cholecalciferol [Vitamin D3 (25 25 mcg PO DAILY 01/30/21 03/24/21 History Mcg = 1000 Iu)] Cyanocobalamin (Vitamin B-12) 5,000 mcg PO DAILY 01/30/21 03/24/21 History [Vitamin B-12] Escitalopram [Lexapro] 20 mg PO DAILY 01/30/21 03/24/21 History Estradiol 0.5 mg PO Q48H 01/30/21 03/24/21 History Ferrous Sulfate [Feosol] 325 mg PO BID 01/30/21 03/24/21 History HYDROcodone/APAP 5-325MG [[place] 1 tab PO Q4H PRN 01/30/21 03/24/21 History 5-325] azaTHIOprine [Imuran] 100 mg PO DAILY 01/30/21 03/24/21 History medroxyPROGESTERone [Provera] 2.5 mg PO Q48H 01/30/21 03/24/21 History predniSONE See Taper PO DIRECTED 01/30/21 03/24/21 History Estradiol 0.25 mg PO Q48H 03/24/21 03/24/21 History medroxyPROGESTERone [Provera] 1.25 mg PO Q48H 03/24/21 03/24/21 History Allergies Allergy/AdvReac Type Severity Reaction Status Date / Time amoxicillin Allergy Rash/Hives Verified 03/24/21 15:14 clavulanic acid Allergy Rash/Hives Verified 03/24/21 15:14 [From Augmentin] Iodinated Contrast Media Allergy Rash/Hives/throat Verified 03/24/21 15:14 swelling Penicillins Allergy Rash/Hives Verified 03/24/21 15:14 Physical Exam Vitals: Vital Signs Temp Pulse Resp BP Pulse Ox 03/24/21 12:52 100.2 F H 100 18 115/61 95 Intake and Output 03/23/21 03/24/21 03/24/21 22:59 06:59 14:59 Other: Weight 50.802 kg -GENERAL: The patient is alert and oriented x3, not in any acute distress. Thin build HEENT: Pupils are round and equally reacting to light. EOMI. No scleral icterus. No conjunctival pallor. Normocephalic, atraumatic. No pharyngeal erythema. No thyromegaly. CARDIOVASCULAR: S1 and S2 present. No murmurs, rubs, or gallops. PULMONARY: Chest is clear to auscultation, no wheezing or crackles. ABDOMEN: Soft, nontender, nondistended, normoactive bowel sounds. No palpable organomegaly. MUSCULOSKELETAL: No joint swelling or deformity. EXTREMITIES: No cyanosis, clubbing, or pedal edema. NEUROLOGICAL: Gross neurological examination did not reveal any focal deficits. SKIN: No rashes. No petechiae Results CBC & Chem 7: 03/24/21 14:32 03/24/21 14:32 Assessment and Plan Assessment: Sepsis, with possible intra-abdominal source Hypotension Recently diagnosed rectal cancer, currently on chemotherapy Chronic Crohn's disease Chronic diarrhea with recent worsening Dehydration Plan: This is a pleasant 55 years old female who presents with sepsis possible gastroenteritis. Continue with IV fluids. Give normal saline boluses Continue with cefepime, and add Flagyl Check C. diff and stool studies questran twice a day if C. diff negative Infectious and oncology/hematology team consult Labs and medication were reviewed.. Continue same treatment. Continue with symptomatic treatment. Resume home medication. Monitor lytes and vitals. DVT and GI prophylaxis. Further recommendations depends on the clinical course of the patient DVT prophylaxis: Subcutaneous heparin GI Prophylaxis: Ppi PT/OT: Pending Prognosis is guarded
[2021-03-24] MEDS ORDERED: CEFEPIME 2 GM in SODIUM CHLORIDE 0.9% 50 ML IVPB SCH (21:00)
[2021-03-24] MEDS: metroNIDAZOLE-NS PMX 500 MG in SALINE 1 100ML.BAG IVPB SCH (21:26)
[2021-03-24] MEDS: HEPARIN SODIUM,PORCINE/PF 5,000 UNIT/0.5 ML SYRINGE SQ SCH (21:37)
[2021-03-24] MEDS ORDERED: BARIUM SULFATE 450 ML ORAL.SUSP BOTTLE PO PRN (22:25)
[2021-03-24] MEDS: CEFEPIME 2 GM in SODIUM CHLORIDE 0.9% 100 ML IVPB SCH (23:12)
[2021-03-24] MEDS: ALPRAZolam 1 MG TAB PO PRN (23:17)
[2021-03-25] MEDS: metroNIDAZOLE-NS PMX 500 MG in SALINE 1 100ML.BAG IVPB SCH ×3 (03:11→20:32)
[2021-03-25 06:17] LABS: Anisocytosis Moderate; HCT 27.6 % (34.0-46.0); HGB 8.8 gm/dL (11.4-16.0); Hypochromasia Marked; MCHC 31.7 g/dL (31.0-37.0); MCV 94.6 fL (80.0-100.0); Macrocytosis Slight; Mean Platelet Volume 7.3; Platelet Count 345 k/uL (150-450); Poikilocytosis Slight; RBC 2.92 m/uL (3.80-5.40); RDW 20.2 % (11.5-15.5); WBC 3.6 k/uL (3.8-10.6)
[2021-03-25] MEDS: HEPARIN SODIUM,PORCINE/PF 5,000 UNIT/0.5 ML SYRINGE SQ SCH ×2 (07:29→19:04)
[2021-03-25] MEDS: CEFEPIME 2 GM in SODIUM CHLORIDE 0.9% 100 ML IVPB SCH ×3 (07:39→23:54)
[2021-03-25] MEDS: PANTOPRAZOLE 40 MG/10 ML VIAL IVP SCH (07:39)
[2021-03-25] MEDS: ESCITALOPRAM 20 MG TAB PO SCH (07:39)
--- NOTE | 2021-03-25 09:34 | CONS ---
CONSULTATION DATE OF SERVICE: 03/24/2021. REASON FOR CONSULTATION: Febrile neutropenia. HISTORY OF PRESENT ILLNESS: The patient is a 55-year-old female with past medical history significant for Crohn's disease in this patient recently diagnosed with rectal cancer. The patient did have a MediPort and received 1st chemotherapy about 2 weeks ago. The patient to the Oncology office this morning for her 2nd round of chemotherapy. The patient was noticed to have a fever of 102 degrees Fahrenheit and she was noticed to have low white count. The patient subsequently was sent to the [facility] ER for evaluation of possible infection. The patient did mention she has not been feeling as good since yesterday afternoon, had felt chills but did not take her temperature. The patient denies having any headache. The patient denies having any URI symptoms. No chest pain, shortness of breath or cough. No abdominal pain. The patient did have a chronic diarrhea from Crohn's disease. Did not mention any blood or mucus in the stool. No urinary symptoms. With these symptoms, the patient has been evaluated by the ER physician. On arrival to the ER, the patient did have a fever of 100.2 degrees Fahrenheit. The patient did have leukopenia with white count 2.1. Kidney function has been normal. Liver enzymes mildly elevated. Urine was negative. Nguyen PCR was negative. Chest x-ray was negative for any pneumonia. The patient was started on cefepime, Flagyl. Infectious Disease was consulted for further management of antibiotic therapy. REVIEW OF SYSTEMS: Positive points have been mentioned in HPI. Rest of systems are negative. PAST MEDICAL HISTORY: Crohn's disease, malignant melanoma, recent diagnosis of rectal cancer. PAST SURGERY HISTORY: Bowel resection, subtotal colectomy, arthroscopy right knee, tubal ligation and MediPort placement. SOCIAL HISTORY: Denies smoking, drinking or drug use. FAMILY HISTORY: Father with history of prostate cancer. Mother history of lung cancer. ALLERGIES: TO PENICILLIN, IODINATED CONTRAST DYE AND AUGMENTIN. MEDICATIONS: The patient is currently on cefepime, Flagyl, Protonix, heparin, Lexapro, Questran, Xanax and [place]. PHYSICAL EXAMINATION: Blood pressure is 104/57 with a pulse of 90, temperature is . She is 98% on room air. GENERAL DESCRIPTION is a middle-aged female lying in no distress. No tachypnea or accessory muscles of respiration use. HEENT: Examination shows slight pallor. No scleral icterus. Oral mucous membrane is dry. NECK: Trachea central. No thyromegaly. LUNGS: Unlabored breathing. Clear to auscultation. No wheeze or crackles. HEART: S1, S2. Regular rate and rhythm. ABDOMEN: Soft, mildly distended. No guarding. No rigidity. No organomegaly. EXTREMITIES: No edema of the feet. SKIN examination: No rash or mass palpable. NEUROLOGICAL: Patient is awake, alert, oriented x3. Mood and affect normal. LABS: Hemoglobin is 9.1, white count 2.1, BUN of 19, creatinine 0.82. Electrolytes are normal. Liver enzymes are mildly elevated. DIAGNOSTIC IMPRESSION AND PLAN: 1. Patient admitted to the hospital with a fever in this patient who did have evidence of leukopenia from her chemo that she received for her rectal cancer. The patient did have a low-grade fever. Currently no obvious focus of infection with chest x- ray been negative. Urine is negative. Abdominal not significantly distended or tender. No evidence of any cellulitis. 2. Patient did have a PENICILLIN allergy that will limit the number of antibiotics safe to use. PLAN: 1. We will obtain a CT of abdomen and pelvis with oral contrast to complete the workup to rule out any intraabdominal source. 2. Cefepime 2 g should provide adequate initial antibiotic coverage. 3. Gentle IV fluid. 4. We will follow on clinical condition and further adjust medication if needed. Thank you for this consultation. We will follow this patient along with you. MMODL / IJN: [id number] /
[2021-03-25 10:33] LABS: African American GFR (CKD) 72.4 (60.0-200.0); Albumin 3.3 g/dL (3.80-4.90); Albumin/Globulin Ratio 1.5 (1.60-3.17); Anion Gap 7.1 mmol/L (4.00-12.00); Calcium 8.8 mg/dL (8.7-10.3); Carbon Dioxide 27.9 mmol/L (21.6-31.8); Globulin 2.2 g/dL (1.6-3.3); Non-African American GFR(CKD) 62.5 (60.0-200.0); Potassium 4.5 mmol/L (3.5-5.5); Total Bilirubin 0.3 mg/dL (0.3-1.2); Total Protein 5.5 g/dL (6.2-8.2)
[2021-03-25] MEDS: HYDROcodone/APAP 5-325MG 1 EACH TAB PO PRN ×3 (10:52→23:59)
[2021-03-25] MEDS: CHOLESTYRAMINE (WITH SUGAR) 4 GM PACKET PO SCH ×2 (10:52→17:15)
--- NOTE | 2021-03-25 11:11 | P.CONS ---
History of Present Illness - Reason for Consult Consult date: 03/25/21 febrile neutropenia Requesting physician: Jose E Sheet - Chief Complaint fever, chills - History of Present Illness Mrs. Gregory is a very pleasant female pt of Dr. Jimenez who presented with episodes of hematochezia with mucus and pelvic pressure X 6 months, it was in itially attributed by patient to a breakthrough in known Crohn's disease. She had subtotal colectomy [address] Garcia, currently on Imuran for control of Crohn's disease, following with Dr. Gomes. She was found to have severe anemia, thus, sigmoidoscopy/EGD recommended, revealed ulcerated inflammed mucosa without definite tumoral masses, biopsy of ileo-rectal anastamosis and distal rectum revealed well-differentiated adenocarcinoma. She had lost 10 lbs in the 3 months prior to diagnosis, lifetime non smoker. She was initiated on neoadjuvant [id number], had 1 cycle and was in ofc yesterday for cycle 2. She presented with fever >101 , chills. She states that Wednesday she had increased diarrhea then her baseline, warm and cold intermittently, denied oral irritation, cough, N,V, abd pain, dysuria, hematuria, swelling, rash. She is feeling ok today, pancultures pending, empiric abx ordered, c-diff neg. WBC was 1.3 in ofc, 3.6 today. Review of Systems 10 point ROS is neg except as stated in HPI Past Medical History Past Medical History: Cancer Additional Past Medical History / Comment(s): Crohn's disease, malignant melanoma removed, rectal cancer, anemia History of Any Multi-Drug Resistant Organisms: None Reported Past Surgical History: Bowel Resection, Orthopedic Surgery, Tubal Ligation Additional Past Surgical History / Comment(s): sub total colectomy, colonoscopies, arthroscopy repair left knee Past Anesthesia/Blood Transfusion Reactions: Previous Problems w/ Anesthesia Additional Past Anesthesia/Blood Transfusion Reaction / Comm: wakes up during pr ocedures, "seems to need alot for colonoscopies" Past Psychological History: Anxiety, Depression Smoking Status: Never smoker Past Alcohol Use History: None Reported Past Drug Use History: None Reported - Past Family History Mother Family Medical History: Cancer Additional Family Medical History / Comment(s): lung Father Family Medical History: Cancer Additional Family Medical History / Comment(s): prostate Sister(s) Family Medical History: Deep Vein Thrombosis (DVT), Pulmonary Embolus Medications and Allergies Home Medications Medication Instructions Recorded Confirmed Type ALPRAZolam [Xanax] 1 mg PO BID PRN 01/30/21 03/24/21 History Cholecalciferol [Vitamin D3 (25 25 mcg PO DAILY 01/30/21 03/24/21 History Mcg = 1000 Iu)] Cyanocobalamin (Vitamin B-12) 5,000 mcg PO DAILY 01/30/21 03/24/21 History [Vitamin B-12] Escitalopram [Lexapro] 20 mg PO DAILY 01/30/21 03/24/21 History Estradiol 0.5 mg PO Q48H 01/30/21 03/24/21 History Ferrous Sulfate [Feosol] 325 mg PO BID 01/30/21 03/24/21 History HYDROcodone/APAP 5-325MG [Aragon 1 tab PO Q4H PRN 01/30/21 03/24/21 History 5-325] azaTHIOprine [Imuran] 100 mg PO DAILY 01/30/21 03/24/21 History medroxyPROGESTERone [Provera] 2.5 mg PO Q48H 01/30/21 03/24/21 History predniSONE See Taper PO DIRECTED 01/30/21 03/24/21 History Estradiol 0.25 mg PO Q48H 03/24/21 03/24/21 History medroxyPROGESTERone [Provera] 1.25 mg PO Q48H 03/24/21 03/24/21 History Allergies Allergy/AdvReac Type Severity Reaction Status Date / Time amoxicillin Allergy Rash/Hives Verified 03/24/21 15:14 clavulanic acid Allergy Rash/Hives Verified 03/24/21 15:14 [From Augmentin] Iodinated Contrast Media Allergy Rash/Hives/throat Verified 03/24/21 15:14 swelling Penicillins Allergy Rash/Hives Verified 03/24/21 15:14 Physical Exam Vitals: Vital Signs Temp Pulse Pulse Resp BP BP Pulse Ox 03/25/21 08:00 18 03/25/21 04:25 97.9 F 52 L 18 105/59 98 03/24/21 20:00 97.9 F 98 18 104/57 98 03/24/21 18:05 98.6 F 60 18 98/60 100 03/24/21 15:25 18 03/24/21 15:20 72 18 105/60 96 03/24/21 12:52 100.2 F H 100 18 115/61 95 Intake and Output 03/24/21 03/25/21 03/25/21 22:59 06:59 14:59 Intake Total 1140 Balance 1140 Intake: Intake, IV Titration 800 Amount Cefepime 2 gm In Sodium 100 Chloride 0.9% 100 ml @ 25 mls/hr IVPB Q8HR [facility] Rx# :[id number] Sodium Chloride 0.9% 500 500 ml 500 ml @ 999 mls/hr IV .Q31M ONE Rx#:[id number] metroNIDAZOLE-NS PMX 500 200 mg In Saline 1 100ml.bag @ 100 mls/hr IVPB Q8H [facility] Rx#:[id number] Oral 340 Other: # Voids 1 Weight 50.802 kg - Constitutional General appearance: cooperative, no acute distress, thin - EENT Eyes: anicteric sclerae, edentulous ENT: hearing grossly normal, normal oropharynx - Neck Neck: no lymphadenopathy - Respiratory Respiratory: bilateral: CTA - Cardiovascular Rhythm: regular Heart sounds: normal: S1, S2 Abnormal Heart Sounds: no systolic murmur, no diastolic murmur, no rub, no S3 Gallop, no S4 Gallop, no click, no other leg Peripheral Edema: bilateral: None - Gastrointestinal General gastrointestinal: no absent bowel sounds, no decreased bowel sounds, no distended, no hepatomegaly, no hyperactive bowel sounds, normal bowel sounds, no organomegaly, no rigid, no scaphoid, soft, no splenomegaly, no tenderness, no umbilical hernia, no ventral hernia - Integumentary Integumentary: normal - Neurologic Neurologic: CNII-XII intact - Musculoskeletal Musculoskeletal: strength equal bilaterally - Psychiatric Psychiatric: A&O x's 3, appropriate affect, intact judgment & insight Results CBC & Chem 7: 03/25/21 05:13 03/25/21 05:13 Labs: Abnormal Lab Results - Last 24 Hours (Table) 03/24/21 03/24/21 03/24/21 Range/Units 14:32 14:32 14:41 WBC 2.1 L (3.8-10.6) k/uL RBC 3.14 L (3.80-5.40) m/uL Hgb 9.1 L (11.4-16.0) gm/dL Hct 28.7 L (34.0-46.0) % RDW 20.0 H (11.5-15.5) % Neutrophils # (Manual) 0.90 L (1.3-7.7) k/uL Lymphocytes # (Manual) 0.53 L (1.0-4.8) k/uL Metamyelocytes # (Man) 0.08 H (0) k/uL Myelocytes # (Manual) 0.08 H (0) k/uL APTT 20.3 L (22.0-30.0) sec Sodium 131 L (137-145) mmol/L BUN 19 H (7-17) mg/dL AST 49 H (14-36) U/L ALT 59 H (4-34) U/L Alkaline Phosphatase 129 H (38-126) U/L Total Protein 6.2 L (6.3-8.2) g/dL Urine Blood (Negative) Urine Bacteria (None) /hpf Urine Mucus (None) /hpf 03/24/21 03/25/21 Range/Units 14:53 05:13 WBC 3.6 L (3.8-10.6) k/uL RBC 2.92 L (3.80-5.40) m/uL Hgb 8.8 L (11.4-16.0) gm/dL Hct 27.6 L (34.0-46.0) % RDW 20.2 H (11.5-15.5) % Neutrophils # (Manual) (1.3-7.7) k/uL Lymphocytes # (Manual) (1.0-4.8) k/uL Metamyelocytes # (Man) (0) k/uL Myelocytes # (Manual) (0) k/uL APTT (22.0-30.0) sec Sodium (137-145) mmol/L BUN (7-17) mg/dL AST (14-36) U/L ALT (4-34) U/L Alkaline Phosphatase (38-126) U/L Total Protein (6.3-8.2) g/dL Urine Blood Small H (Negative) Urine Bacteria Rare H (None) /hpf Urine Mucus Rare H (None) /hpf Microbiology - Last 24 Hours (Table) 03/24/21 14:50 Stool Culture - Preliminary Stool Chest x-ray: report reviewed Assessment and Plan (1) Febrile neutropenia Narrative/Plan: Suspect fever/chill 2/2 rapid increase in WBC post chemo but, cannot be absolutely certain. Pending panculture final reporting. Agree with empiric abx. ID consulted. Encouraged fluids Current Visit: Yes Status: Acute Priority: High Code(s): D70.9 - NEUTROPENIA, UNSPECIFIED; R50.81 - FEVER PRESENTING WITH CONDITIONS CLASSIFIED ELSEWHERE SNOMED Code(s): 195370915 (2) Rectal cancer Narrative/Plan: S/P 1st cycle of neoadjuvant treatment. Delay 2nd cycle until abx complete. Primary Onc will determine if GCSF to be added. Current Visit: Yes Status: Acute Priority: High Code(s): C20 - MALIGNANT NEOPLASM OF RECTUM SNOMED Code(s): 299067681 Plan: Doctor attests: I performed a history and physical examination of this patient, developed impression and plan of care, discussed with dictator. I agree with dictators note, documented as a scribe.
[2021-03-25 11:28] LABS: Band Neutrophils % 5 %; Eosinophils # (M) 0.04 k/uL (0-0.7); Lymphocytes # (M) 0.86 k/uL (1.0-4.8); Metamyelocytes # (M) 0.07 k/uL (0); Metamyelocytes % 2 %; Myelocytes # (M) 0.04 k/uL (0); Myelocytes % 1 %; Neutrophils % (M) 43 %; Nucleated Red Blood Cells 1 /100 WBC (0-0); Total Cells Counted 200
[2021-03-25 11:38] LABS: Polychromasia Present
[2021-03-25 11:39] LABS: Tear Drop Cells Present
[2021-03-25] MEDS: BARIUM SULFATE 450 ML ORAL.SUSP BOTTLE PO PRN ×2 (11:50→14:54)
--- NOTE | 2021-03-25 14:29 | PN ---
PROGRESS NOTE DATE OF SERVICE: 03/25/2021 REASON FOR FOLLOWUP: Fever. INTERVAL HISTORY: Patient overall fever pattern has improved. The patient denies having any chest pain. No shortness of breath or cough. No nausea or vomiting, no abdominal pain. No diarrhea. PHYSICAL EXAMINATION: Blood pressure 94/58 with a pulse of 81, temperature 98.1. She is 99% on room air. General description is a middle-aged female lying in bed in no distress. Respiratory system: Unlabored breathing. Clear to auscultation anteriorly. Heart S1, S2. Regular rate and rhythm. Abdomen soft, no tenderness. LABS: Hemoglobin 8.1, white count 3.6, BUN of 26, creatinine 1.0. DIAGNOSTIC IMPRESSION AND PLAN: Patient admitted to the hospital with a fever, leukopenia with a history of rectal cancer and no obvious focus. CT of abdomen and pelvis has been requested. Patient has been refusing, however finally agreed with IV contrast. Continue cefepime and Flagyl. Continue supportive care. MMODL / IJN: [id number] /
[2021-03-25 14:54] VITALS: BMI 18.1
--- NOTE | 2021-03-25 15:36 | CDI ---
Documentation Clarification Form Date: 03/25/2021 03:29:16 PM From: Marilynn Baptiste RN, CCDS Admit Date: 03/24/2021 03:02:00 PM Patient Name: More Forte Visit Number: [id number] ATTENTION: The Clinical Documentation Specialists (CDI) and [facility] Coding Staff appreciate your assistance in clarifying documentation. Please respond to the clarification below the line at the bottom and electronically sign. The CDI & [facility] Coding staff will review the response and follow-up if needed. Please note: Queries are made part of the Legal Health Record. If you have any questions, please contact the author of this message via ITS. Dr. Jose Hernandez Sheet The Registered Dietitian assessment on 03/25 indicates this patient meets criteria for moderate chronic malnutrition. Based on this information and the findings below, is there an additional diagnosis that is clinically appropriate for this patient? History/Risk Factors: Chron's disease, Rectal CA with Chemo, Anemia Clinical Indicators: RD Consult Assessment: "Underweight with decreased intake, nausea and weight loss over last 2 months, chronic moderate malnutrition." Current BMI: 18.1 Insufficient energy intake: increased nausea in a patient with rectal cancer currently on chemotherapy Weight Loss: unspecified amount over last 2 months Treatment: Dietary Consult: Completed 03/25 Supplements: Ensure Compact TID Lab monitoring: Am Daily Is there an additional diagnosis that is clinically appropriate for this patient? [ ] Mild Protein-Calorie Malnutrition [ ] Moderate Protein-Calorie Malnutrition [ ] Severe Protein-Calorie Malnutrition [ ] Other condition, please specify [ ] Unable to Determine (Template Last Revised: October 2020) Moderate Protein-Calorie Malnutrition MTDD
--- NOTE | 2021-03-25 18:58 | CT ---
EXAMINATION TYPE: CT abdomen pelvis wo con DATE OF EXAM: 03/25/2021 COMPARISON: PET CT scan 02/14/2021 HISTORY: fever CT DLP: 236.2 mGycm Automated exposure control for dose reduction was used. Images obtained from the diaphragm to the floor the pelvis with oral contrast only. The lung bases are clear. There is no pleural effusion. Heart size is normal. There is no pericardial effusion. Liver spleen stomach pancreas gallbladder appear intact. The bile ducts are not dilated. There is no adrenal mass. Kidneys show normal size and contour. There is no hydronephrosis. Ureters a re not dilated. There is no retroperitoneal adenopathy. Bladder distends smoothly. There is no inguin al hernia. There is fat stranding around the rectum. There is wall thickening of the rectum. There ar e enlarged perirectal lymph nodes that measure up to 1 cm. There is no evidence of a bowel obstruction. Small bowel pattern is normal. There is no ascites or fr ee air. Appendix is not definitely seen. The lumbar vertebra have normal alignment. Disc spaces are fairly normal. There is no compression fra cture. Bony pelvis is intact. Hip joints are intact. There is no hip dysplasia. IMPRESSION: Perirectal edema and adenopathy and rectal wall thickening that has increased compared to old exam. T his is consistent with progression of tumor in this patient with a history of rectal cancer. Colitis not excluded.
[2021-03-25] MEDS ORDERED: LEVOFLOXACIN 750MG-D5W PMX 750 MG in DEXTROSE/WATER 1 150ML.BAG IVPB SCH (19:00)
[2021-03-25] MEDS ORDERED: ACETAMINOPHEN TAB 325 MG TAB PO PRN (19:03)
--- NOTE | 2021-03-25 23:30 | P.PN ---
Subjective This is a pleasant 55 years old female with past medical history of chronic Crohn disease, recently diagnosed with rectal cancer, anxiety and depression Patient presents because of fever. She has a known history of Crohn disease and chronic diarrhea about 6 bowel movements per day at baseline, 2 months ago patient was noticed getting symptoms similar to Crohn disease flare up with more diarrhea, loss of weight and abdominal pain. However her diarrhea and weight loss were more than usual, because of this she underwent colonoscopy and EGD wit h her health care marketing specialist Dr. Gomes, biopsy came back positive for rectal cancer. She was referred to Dr. Jimenez and started chemotherapy. Today [facility] to get her second cycle of chemotherapy when she was noticed to have fever of 100.1 and Showing Leukopenia of 1.6, Anemia with Hemoglobin 7.8 and Normal Platelet Count at 244K. Patient reports ongoing diarrhea with blood about 15 times per day but no abdominal pain or nausea vomiting. No chest pain or dyspnea. No urinary complaints. No rash. On admission she has fever of 100.2, blood pressure also on the low side, rest of Vitas looks stable. No labs repeated here. Labs are still pending from emergency room In the emergency room patient was started on cefepime 03/25/2021 Patient admitted with sepsis secondary to intra-abdominal source. Her diarrhea. To better when she had 2 bowel movements of loose stool yesterday and 1 this morning. Still with no abdominal pain. Still with no nausea vomiting. She had low-grade temperature today of 99.7. Vitals are stable. Labs showing slightly improving from leukopenia up to 3.6K. Troponin is slightly lower today at 8.8. Platelets are normal. Liver enzymes looks the same with just mildly elevated procalcitonin came back elevated at 0.34 Dear of the abdomen and pelvis without contrast showing increased perirectal edema with increased wall thickening suspicious for progression of tumor versus prostatitis Oncology and infectious disease input is appreciated Patient kept on normal saline at 1 25 mL/h with cefepime and Flagyl C. diff came back negative and patient started on Questran Objective - Vital Signs Vital signs: Vital Signs Temp 99.7 F H 03/25/21 21:33 Pulse 92 03/25/21 19:56 Resp 16 03/25/21 19:56 BP 98/54 03/25/21 19:56 Pulse Ox 96 03/25/21 20:00 Intake & Output 03/25/21 03/25/21 03/26/21 06:59 18:59 06:59 Intake Total 1140 680 200 Balance 1140 680 200 Weight 50.802 kg 50.802 kg Intake: IV 200 Cefepime 2 gm In Sodium 200 Chloride 0.9% 100 ml @ 25 mls/hr IVPB Q8HR [facility] Rx# :[id number] Intake, IV Titration 800 Amount Cefepime 2 gm In Sodium 100 Chloride 0.9% 100 ml @ 25 mls/hr IVPB Q8HR [facility] Rx# :[id number] Sodium Chloride 0.9% 500 500 ml 500 ml @ 999 mls/hr IV .Q31M ONE Rx#:[id number] metroNIDAZOLE-NS PMX 500 200 mg In Saline 1 100ml.bag @ 100 mls/hr IVPB Q8H [facility] Rx#:[id number] Oral 340 480 200 Other: Voiding Method Toilet # Voids 1 1 # Bowel Movements 1 - Exam -GENERAL: The patient is alert and oriented x3, not in any acute distress. Thin built HEENT: Pupils are round and equally reacting to light. EOMI. No scleral icterus. No conjunctival pallor. Normocephalic, atraumatic. No pharyngeal erythema. No thyromegaly. CARDIOVASCULAR: S1 and S2 present. No murmurs, rubs, or gallops. PULMONARY: Chest is clear to auscultation, no wheezing or crackles. ABDOMEN: Soft, nontender, nondistended, normoactive bowel sounds. No palpable organomegaly. MUSCULOSKELETAL: No joint swelling or deformity. EXTREMITIES: No cyanosis, clubbing, or pedal edema. NEUROLOGICAL: Gross neurological examination did not reveal any focal deficits. SKIN: No rashes. no petechiae. - Labs CBC & Chem 7: 03/25/21 05:13 03/25/21 05:13 Labs: Abnormal Lab Results - Last 24 Hours (Table) 03/25/21 03/25/21 03/25/21 Range/Units 05:13 05:13 05:13 WBC 3.6 L (3.8-10.6) k/uL RBC 2.92 L (3.80-5.40) m/uL Hgb 8.8 L (11.4-16.0) gm/dL Hct 27.6 L (34.0-46.0) % RDW 20.2 H (11.5-15.5) % Lymphocytes # (Manual) 0.86 L (1.0-4.8) k/uL Metamyelocytes # (Man) 0.07 H (0) k/uL Myelocytes # (Manual) 0.04 H (0) k/uL Nucleated RBCs 1 H (0-0) /100 WBC BUN/Creatinine Ratio 26.00 H (12.00-20.00) Ratio AST 41 H (13-35) U/L ALT 62 H (8-44) U/L Total Protein 5.5 L (6.2-8.2) g/dL Albumin 3.30 L (3.80-4.90) g/dL Albumin/Globulin Ratio 1.50 L (1.60-3.17) g/dL Procalcitonin 0.34 H (0.02-0.09) ng/mL Microbiology - Last 24 Hours (Table) 03/24/21 14:30 Blood Culture - Preliminary Blood No Growth after 24 hours 03/24/21 14:38 Blood Culture - Preliminary Blood No Growth after 24 hours 03/24/21 14:50 Stool Culture - Preliminary Stool Assessment and Plan Assessment: Sepsis, with possible intra-abdominal source Hypotension Recently diagnosed rectal cancer, currently on chemotherapy Chronic Crohn's disease Chronic diarrhea with recent worsening Dehydration Plan: This is a pleasant 55 years old female who presents with sepsis possible gastroenteritis. Continue with IV fluids. Give normal saline boluses Continue with cefepime, and add Flagyl Check C. diff and stool studies questran twice a day if C. diff negative Infectious and oncology/hematology team consult Labs and medication were reviewed.. Continue same treatment. Continue with symptomatic treatment. Resume home medication. Monitor lytes and vitals. DVT and GI prophylaxis. Further recommendations depends on the clinical course of the patient DVT prophylaxis: Subcutaneous heparin GI Prophylaxis: Ppi PT/OT: Pending Prognosis is guarded
[2021-03-26] MEDS: ALPRAZolam 1 MG TAB PO PRN ×2 (04:33→22:53)
[2021-03-26] MEDS: metroNIDAZOLE-NS PMX 500 MG in SALINE 1 100ML.BAG IVPB SCH ×3 (04:33→19:31)
[2021-03-26] MEDS: HYDROcodone/APAP 5-325MG 1 EACH TAB PO PRN ×4 (05:39→22:53)
[2021-03-26] MEDS: HEPARIN SODIUM,PORCINE/PF 5,000 UNIT/0.5 ML SYRINGE SQ SCH ×2 (07:08→20:22)
[2021-03-26] MEDS: PANTOPRAZOLE 40 MG/10 ML VIAL IVP SCH (07:54)
[2021-03-26] MEDS: ESCITALOPRAM 20 MG TAB PO SCH (07:54)
[2021-03-26] MEDS: CEFEPIME 2 GM in SODIUM CHLORIDE 0.9% 100 ML IVPB SCH ×2 (07:54→20:22)
[2021-03-26] MEDS: CHOLESTYRAMINE (WITH SUGAR) 4 GM PACKET PO SCH ×2 (09:34→17:17)
[2021-03-26] MEDS: ONDANSETRON 4 MG/2 ML VIAL IVP PRN ×2 (13:05→21:47)
--- NOTE | 2021-03-26 16:56 | P.PN ---
Subjective Progress Note Date: 03/26/21 Principal diagnosis: fever In f/u pt has nausea, no vomiting yet, she has rectal area pain, current analgesics are controlling it. She has not had a fever today, she is tolerating fluids, no SOB, cough, upper abd pain, dysuria, hematuria, hematochesia, melena or mucus stools. Objective - Vital Signs Vital signs: Vital Signs Temp 98.3 F 03/26/21 11:28 Pulse 64 03/26/21 11:28 Resp 16 03/26/21 11:28 BP 103/63 03/26/21 11:28 Pulse Ox 97 03/26/21 11:28 Intake & Output 03/25/21 03/26/21 03/26/21 18:59 06:59 18:59 Intake Total 680 500 Balance 680 500 Weight 50.802 kg Intake: IV 200 Cefepime 2 gm In Sodium 200 Chloride 0.9% 100 ml @ 25 mls/hr IVPB Q8HR [facility] Rx# :[id number] Intake, IV Titration 300 Amount Cefepime 2 gm In Sodium 100 Chloride 0.9% 100 ml @ 25 mls/hr IVPB Q8HR [facility] Rx# :[id number] metroNIDAZOLE-NS PMX 500 200 mg In Saline 1 100ml.bag @ 100 mls/hr IVPB Q8H [facility] Rx#:[id number] Oral 480 200 Other: Voiding Method Toilet Toilet # Voids 1 # Bowel Movements 1 - Constitutional General appearance: Present: cooperative, mild distress, thin - EENT Eyes: Present: anicteric sclerae, EOMI, normal appearance ENT: Present: hearing grossly normal - Respiratory Respiratory: bilateral: CTA - Cardiovascular Rhythm: regular Heart sounds: normal: S1, S2 Abnormal Heart Sounds: Absent: systolic murmur, diastolic murmur, rub, S3 Gallop, S4 Gallop, click, other - Peripheral edema leg Peripheral Edema: bilateral: None - Gastrointestinal General gastrointestinal: Present: normal bowel sounds, soft - Neurologic Neurologic: Present: CNII-XII intact - Musculoskeletal Musculoskeletal: Present: strength equal bilaterally - Psychiatric Psychiatric: Present: A&O x's 3, appropriate affect, intact judgment & insight - Labs CBC & Chem 7: 03/25/21 05:13 03/25/21 05:13 Labs: Microbiology - Last 24 Hours (Table) 03/24/21 14:30 Blood Culture - Preliminary Blood No Growth after 24 hours 03/24/21 14:38 Blood Culture - Preliminary Blood No Growth after 24 hours - Imaging and Cardiology CT scan - abdomen: report reviewed CT scan - pelvis: report reviewed Assessment and Plan (1) Febrile neutropenia Narrative/Plan: WBC is improving, ANC is within normal limits. Fever pattern has abated. ID has seen patient. CT of the abdomen and pelvis is reporting area around malignancy is larger, patient is only had 1 cycle, this could be tumor necrosis and possibly an abscess. Infectious disease has antibiotics ordered. Current Visit: Yes Status: Acute Priority: High Code(s): D70.9 - NEUTROPENIA, UNSPECIFIED; R50.81 - FEVER PRESENTING WITH CONDITIONS CLASSIFIED ELSEWHERE SNOMED Code(s): 593609757 (2) Rectal cancer Narrative/Plan: S/P 1st cycle of neoadjuvant treatment. Delay 2nd cycle until abx complete. Primary Onc will determine if GCSF to be added. Current Visit: Yes Status: Acute Priority: High Code(s): C20 - MALIGNANT NEOPLASM OF RECTUM SNOMED Code(s): 515918281
--- NOTE | 2021-03-26 20:53 | P.PN ---
Subjective This is a pleasant 55 years old female with past medical history of chronic Crohn disease, recently diagnosed with rectal cancer, anxiety and depression Patient presents because of fever. She has a known history of Crohn disease and chronic diarrhea about 6 bowel movements per day at baseline, 2 months ago patient was noticed getting symptoms similar to Crohn disease flare up with more diarrhea, loss of weight and abdominal pain. However her diarrhea and weight loss were more than usual, because of this she underwent colonoscopy and EGD wit h her tack puller Dr. Gomes, biopsy came back positive for rectal cancer. She was referred to Dr. Jimenez and started chemotherapy. Today [facility] to get her second cycle of chemotherapy when she was noticed to have fever of 100.1 and Showing Leukopenia of 1.6, Anemia with Hemoglobin 7.8 and Normal Platelet Count at 244K. Patient reports ongoing diarrhea with blood about 15 times per day but no abdominal pain or nausea vomiting. No chest pain or dyspnea. No urinary complaints. No rash. On admission she has fever of 100.2, blood pressure also on the low side, rest of Vitas looks stable. No labs repeated here. Labs are still pending from emergency room In the emergency room patient was started on cefepime 03/25/2021 Patient admitted with sepsis secondary to intra-abdominal source. Her diarrhea. To better when she had 2 bowel movements of loose stool yesterday and 1 this morning. Still with no abdominal pain. Still with no nausea vomiting. She had low-grade temperature today of 99.7. Vitals are stable. Labs showing slightly improving from leukopenia up to 3.6K. Troponin is slightly lower today at 8.8. Platelets are normal. Liver enzymes looks the same with just mildly elevated procalcitonin came back elevated at 0.34 Dear of the abdomen and pelvis without contrast showing increased perirectal edema with increased wall thickening suspicious for progression of tumor versus prostatitis Oncology and infectious disease input is appreciated Patient kept on normal saline at 1 25 mL/h with cefepime and Flagyl C. diff came back negative and patient started on Questran 03/26/2021 Patient feels malaise and generally weak. However she is fully awake and oriented. Poor oral intake No abdominal pain, no abdominal tenderness or nausea vomiting. She has ongoing diarrhea, 5-6 bowel movements over last night. Also she is complaining of from rectal pain Pump she was taken [place] 5 mg every 4 hours, here in the hospital is only every 6 hours which is corrected 2 every 4 hours Patient findings of the CAT scan of the abdomen and pelvis is discussed with her, most likely patient has prostatitis related to her rectal cancer. Patient still needs close monitoring the hospital while keeping her on cefepime, IV Flagyl and aggressive hydration at normal saline 125 mL/h Blood culture and stool culture are still pending. C. diff is negative Objective - Vital Signs Vital signs: Vital Signs Temp 98.3 F 03/26/21 11:28 Pulse 64 03/26/21 11:28 Resp 16 03/26/21 11:28 BP 103/63 03/26/21 11:28 Pulse Ox 97 03/26/21 11:28 Intake & Output 03/25/21 03/26/21 03/26/21 18:59 06:59 18:59 Intake Total 680 500 Balance 680 500 Weight 50.802 kg Intake: IV 200 Cefepime 2 gm In Sodium 200 Chloride 0.9% 100 ml @ 25 mls/hr IVPB Q8HR [facility] Rx# :[id number] Intake, IV Titration 300 Amount Cefepime 2 gm In Sodium 100 Chloride 0.9% 100 ml @ 25 mls/hr IVPB Q8HR [facility] Rx# :[id number] metroNIDAZOLE-NS PMX 500 200 mg In Saline 1 100ml.bag @ 100 mls/hr IVPB Q8H [facility] Rx#:[id number] Oral 480 200 Other: Voiding Method Toilet Toilet # Voids 1 # Bowel Movements 1 - Exam -GENERAL: The patient is alert and oriented x3, not in any acute distress. Thin build HEENT: Pupils are round and equally reacting to light. EOMI. No scleral icterus. No conjunctival pallor. Normocephalic, atraumatic. No pharyngeal erythema. No thyromegaly. CARDIOVASCULAR: S1 and S2 present. No murmurs, rubs, or gallops. PULMONARY: Chest is clear to auscultation, no wheezing or crackles. ABDOMEN: Soft, nontender, nondistended, normoactive bowel sounds. No palpable organomegaly. MUSCULOSKELETAL: No joint swelling or deformity. EXTREMITIES: No cyanosis, clubbing, or pedal edema. NEUROLOGICAL: Gross neurological examination did not reveal any focal deficits. SKIN: No rashes. No petechiae - Labs CBC & Chem 7: 03/25/21 05:13 03/25/21 05:13 Labs: Microbiology - Last 24 Hours (Table) 03/24/21 14:30 Blood Culture - Preliminary Blood No Growth after 24 hours 03/24/21 14:38 Blood Culture - Preliminary Blood No Growth after 24 hours Assessment and Plan Assessment: Sepsis, secondary to acute prostatitis Hypotension, improving Recently diagnosed rectal cancer, currently on chemotherapy Chronic Crohn's disease Moderate calories protein malnutrition Chronic diarrhea with recent worsening Dehydration Plan: This is a pleasant 55 years old female who presents with sepsis possible gastroenteritis. Continue with IV fluids. Continue with cefepime, and add Flagyl Follow-up blood culture on stool culture questran twice a day Consult dietary service, for her malnutrition and poor oral intake Infectious and oncology/hematology team consult Check ESR and C-reactive protein which might help to assess activity of Crohn's disease is expected to be mildly elevated secondary to infection Labs and medication were reviewed.. Continue same treatment. Continue with symptomatic treatment. Resume home medication. Monitor lytes and vitals. DVT and GI prophylaxis. Further recommendations depends on the clinical course of the patient DVT prophylaxis: Subcutaneous heparin GI Prophylaxis: Ppi PT/OT: Pending Prognosis is guarded
--- NOTE | 2021-03-26 23:30 | PN ---
PROGRESS NOTE DATE OF SERVICE: 03/26/2021 REASON FOR FOLLOWUP: Fever, leukopenia and colitis. INTERVAL HISTORY: Patient is afebrile. The patient is breathing comfortably. Denies having any chest pain, shortness of breath or cough. Slight nausea. No abdominal pain or diarrhea. PHYSICAL EXAMINATION: Blood pressure 106/58 with a pulse of 64, temperature is 97.8. She is 96% on room air. General description is a middle-aged female up in the bed in no distress. Respiratory system: Unlabored breathing, clear to auscultation anteriorly. Heart S1, S2. Regular rate and rhythm. Abdomen: Soft, no tenderness. LABS: Hemoglobin 8.8, white count 3.6, BUN of 26, creatinine 1.0. DIAGNOSTIC IMPRESSION AND PLAN: Patient admitted in the hospital with fever, leukopenia, in this patient currently undergoing chemotherapy for her rectal cancer. CT did show evidence of colitis or possible extension of disease. The patient responded to cefepime and Flagyl to continue. Transition to oral antibiotic on discharge. Continue supportive care. MMODL / IJN: [id number] /
[2021-03-27] MEDS ORDERED: KETOROLAC 15 MG/ML 1 ML VIAL IVP SCH
[2021-03-27] MEDS: KETOROLAC 15 MG/ML 1 ML VIAL IVP PRN ×3 (00:52→18:37)
[2021-03-27] MEDS: metroNIDAZOLE-NS PMX 500 MG in SALINE 1 100ML.BAG IVPB SCH ×3 (03:51→19:30)
[2021-03-27 03:58] VITALS: RESP 18
[2021-03-27] MEDS: ONDANSETRON 4 MG/2 ML VIAL IVP PRN (04:00)
[2021-03-27] MEDS: CEFEPIME 2 GM in SODIUM CHLORIDE 0.9% 100 ML IVPB SCH ×2 (07:52→20:37)
[2021-03-27] MEDS: PANTOPRAZOLE 40 MG/10 ML VIAL IVP SCH (07:53)
[2021-03-27] MEDS: HEPARIN SODIUM,PORCINE/PF 5,000 UNIT/0.5 ML SYRINGE SQ SCH ×3 (07:53→19:34)
[2021-03-27] MEDS: ESCITALOPRAM 20 MG TAB PO SCH (07:53)
[2021-03-27] MEDS: METOCLOPRAMIDE 5 MG/ML 2 ML VIAL IVP PRN ×2 (09:40→18:38)
[2021-03-27 09:51] LABS: ALT 50 U/L (4-34); AST 42 U/L (14-36); African American GFR (CKD) >90 (>60 ml/min/1.73 sqM); Albumin 2.7 g/dL (3.5-5.0); Alkaline Phosphatase 103 U/L (38-126); Anion Gap 4 mmol/L; Blood Urea Nitrogen 16 mg/dL (7-17); Calcium 8.7 mg/dL (8.4-10.2); Carbon Dioxide 24 mmol/L (22-30); Chloride 106 mmol/L (98-107); Globulin 2.6 g/dL; Glucose 78 mg/dL (74-99); Non-African American GFR(CKD) >90 (>60 ml/min/1.73 sqM); Potassium 4.3 mmol/L (3.5-5.1); Sodium 134 mmol/L (137-145); Total Bilirubin 0.4 mg/dL (0.2-1.3); Total Protein 5.3 g/dL (6.3-8.2)
[2021-03-27 09:57] LABS: Anisocytosis Slight; HCT 31.9 % (34.0-46.0); HGB 9.4 gm/dL (11.4-16.0); Hypochromasia Marked; MCH 28.5 pg (25.0-35.0); MCHC 29.3 g/dL (31.0-37.0); Macrocytosis Slight; Mean Platelet Volume 8.5; Platelet Count 370 k/uL (150-450); RBC 3.29 m/uL (3.80-5.40); RDW 19.5 % (11.5-15.5); WBC 7.5 k/uL (3.8-10.6)
[2021-03-27] MEDS: CHOLESTYRAMINE (WITH SUGAR) 4 GM PACKET PO SCH ×2 (11:12→18:35)
[2021-03-27] MEDS ORDERED: LORazepam 2 MG/ML INJ IV STA (11:49)
[2021-03-27 11:59] LABS: Band Neutrophils % 11 %; Lymphocytes # (M) 0.98 k/uL (1.0-4.8); Metamyelocytes # (M) 0.75 k/uL (0); Metamyelocytes % 10 %; Monocytes # (M) 0.98 k/uL (0-1.0); Myelocytes % 12 %; Neutrophils % (M) 41 %; Nucleated Red Blood Cells 0 /100 WBC (0-0); Promyelocytes # (M) 0.08 k/uL (0); Promyelocytes % 1 %; Total Cells Counted 200
[2021-03-27 12:00] LABS: Poikilocytosis (M) Present; Toxic Granulation Present
[2021-03-27 12:01] LABS: Tear Drop Cells Present
--- NOTE | 2021-03-27 12:32 | P.PN ---
Subjective This is a pleasant 55 years old female with past medical history of chronic Crohn disease, recently diagnosed with rectal cancer, anxiety and depression Patient presents because of fever. She has a known history of Crohn disease and chronic diarrhea about 6 bowel movements per day at baseline, 2 months ago patient was noticed getting symptoms similar to Crohn disease flare up with more diarrhea, loss of weight and abdominal pain. 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 Gomes, biopsy came back positive for rectal cancer. She was referred to Dr. Jimenez and started chemotherapy. Today [facility] to get her second cycle of chemotherapy when she was noticed to have fever of 100.1 and Showing Leukopenia of 1.6, Anemia with Hemoglobin 7.8 and Normal Platelet Count at 244K. Patient reports ongoing diarrhea with blood about 15 times per day but no abdominal pain or nausea vomiting. No chest pain or dyspnea. No urinary complaints. No rash. On admission she has fever of 100.2, blood pressure also on the low side, rest of Vitas looks stable. No labs repeated here. Labs are still pending from emergency room In the emergency room patient was started on cefepime 03/25/2021 Patient admitted with sepsis secondary to intra-abdominal source. Her diarrhea. To better when she had 2 bowel movements of loose stool yesterday and 1 this morning. Still with no abdominal pain. Still with no nausea vomiting. She had low-grade temperature today of 99.7. Vitals are stable. Labs showing slightly improving from leukopenia up to 3.6K. Troponin is slightly lower today at 8.8. Platelets are normal. Liver enzymes looks the same with just mildly elevated procalcitonin came back elevated at 0.34 Dear of the abdomen and pelvis without contrast showing increased perirectal edema with increased wall thickening suspicious for progression of tumor versus prostatitis Oncology and infectious disease input is appreciated Patient kept on normal saline at 1 25 mL/h with cefepime and Flagyl C. diff came back negative and patient started on Questran 03/26/2021 Patient feels malaise and generally weak. However she is fully awake and oriented. Poor oral intake No abdominal pain, no abdominal tenderness or nausea vomiting. She has ongoing diarrhea, 5-6 bowel movements over last night. Also she is complaining of from rectal pain Pump she was taken [place] 5 mg every 4 hours, here in the hospital is only every 6 hours which is corrected 2 every 4 hours Patient findings of the CAT scan of the abdomen and pelvis is discussed with her, most likely patient has prostatitis related to her rectal cancer. Patient still needs close monitoring the hospital while keeping her on cefepime, IV Flagyl and aggressive hydration at normal saline 125 mL/h Blood culture and stool culture are still pending. C. diff is negative 03/27/2021 Today patient has recurrent vomiting and morning with more abdominal pain and tenderness in the upper abdomen which started yesterday evening. She did not have this tenderness yesterday. She is not sure about her diarrhea since she took the contrast for previous CAT scan a bowel movement. Vital signs stable with no fever today. Labs reviewed and has an Improved leukopenia 3.6 up to 7.5K. Hemoglobin is 9.4 and platelet count is normal. Liver enzymes slightly improved. Patient remains on cefepime and IV Flagyl and normal saline at 1 25 mL/h Because of her vomiting and new periumbilical abdominal pain and tenderness Abdominal pain and tenderness repeated computed tomography scan of the abdomen and pelvis with no oral or IV contrast upon patient request. Still pending Objective - Vital Signs Vital signs: Vital Signs Temp 98.3 F 03/27/21 11:59 Pulse 66 03/27/21 11:59 Resp 18 03/27/21 11:59 BP 144/79 03/27/21 11:59 Pulse Ox 98 03/27/21 11:59 Intake & Output 03/26/21 03/27/21 03/27/21 18:59 06:59 18:59 Intake Total 480 800 Balance 480 800 Intake: Intake, IV Titration 300 Amount Cefepime 2 gm In Sodium 100 Chloride 0.9% 100 ml @ 25 mls/hr IVPB Q12HR [facility] Rx #:[id number] metroNIDAZOLE-NS PMX 500 200 mg In Saline 1 100ml.bag @ 100 mls/hr IVPB Q8H [facility] Rx#:[id number] Oral 480 500 Other: Voiding Method Toilet Toilet # Voids 2 - Exam -GENERAL: The patient is alert and oriented x3, not in any acute distress. Thin build HEENT: Pupils are round and equally reacting to light. EOMI. No scleral icterus. No conjunctival pallor. Normocephalic, atraumatic. No pharyngeal erythema. No thyromegaly. CARDIOVASCULAR: S1 and S2 present. No murmurs, rubs, or gallops. PULMONARY: Chest is clear to auscultation, no wheezing or crackles. ABDOMEN: Soft, nontender, nondistended, normoactive bowel sounds. No palpable organomegaly. MUSCULOSKELETAL: No joint swelling or deformity. EXTREMITIES: No cyanosis, clubbing, or pedal edema. NEUROLOGICAL: Gross neurological examination did not reveal any focal deficits. SKIN: No rashes. No petechiae - Labs CBC & Chem 7: 03/27/21 06:38 03/27/21 06:38 Labs: Abnormal Lab Results - Last 24 Hours (Table) 03/24/21 03/27/21 03/27/21 Range/Units 14:50 06:38 06:38 RBC 3.29 L (3.80-5.40) m/uL Hgb 9.4 L (11.4-16.0) gm/dL Hct 31.9 L (34.0-46.0) % MCHC 29.3 L (31.0-37.0) g/dL RDW 19.5 H (11.5-15.5) % Lymphocytes # (Manual) 0.98 L (1.0-4.8) k/uL Metamyelocytes # (Man) 0.75 H (0) k/uL Myelocytes # (Manual) 0.90 H (0) k/uL Promyelocytes # (Man) 0.08 H (0) k/uL Sodium 134 L (137-145) mmol/L AST 42 H (14-36) U/L ALT 50 H (4-34) U/L Total Protein 5.3 L (6.3-8.2) g/dL Albumin 2.7 L (3.5-5.0) g/dL Stool Calprotectin 168.0 H (<50) mcg/g Microbiology - Last 24 Hours (Table) 03/24/21 14:50 Stool Culture - Preliminary Stool 03/24/21 14:30 Blood Culture - Preliminary Blood No Growth after 48 hours 03/24/21 14:38 Blood Culture - Preliminary Blood No Growth after 48 hours Assessment and Plan Assessment: Sepsis, secondary to acute prostatitis Hypotension, improving Recently diagnosed rectal cancer, currently on chemotherapy Chronic Crohn's disease Moderate calories protein malnutrition Chronic diarrhea with recent worsening Dehydration Plan: This is a pleasant 55 years old female who presents with sepsis possible gastroenteritis. Continue with IV fluids. Continue with cefepime, and add Flagyl Follow-up blood culture on stool culture questran twice a day Consult dietary service, for her malnutrition and poor oral intake Infectious and oncology/hematology team consult Check ESR and C-reactive protein which might help to assess activity of Crohn's disease is expected to be mildly elevated secondary to infection check CT of the abdomen and pelvis without oral contrast without IV contrast Labs and medication were reviewed.. Continue same treatment. Continue with sy mptomatic treatment. Resume home medication. Monitor lytes and vitals. DVT and GI prophylaxis. Further recommendations depends on the clinical course of the patient DVT prophylaxis: Subcutaneous heparin GI Prophylaxis: Ppi PT/OT: Pending Prognosis is guarded
--- NOTE | 2021-03-27 15:33 | P.PN ---
Subjective Progress Note Date: 03/27/21 Principal diagnosis: fever In f/u pt has nausea, no vomiting yet, she has rectal area pain, she was unable to keep her meds down yesterday and last night so she has been in pain, increased anxiety and she has not been able to take her lexapro or xanxa. No fever, feels unwell in general. No SOB, cough, upper abd pain, dysuria, hematuria, hematochezia, melena or mucus stools. Objective - Vital Signs Vital signs: Vital Signs Temp 98.4 F 03/27/21 03:57 Pulse 68 03/27/21 03:57 Resp 18 03/27/21 03:57 BP 111/59 03/27/21 03:57 Pulse Ox 97 03/27/21 03:57 Intake & Output 03/26/21 03/27/21 03/27/21 18:59 06:59 18:59 Intake Total 480 800 Balance 480 800 Intake: Intake, IV Titration 300 Amount Cefepime 2 gm In Sodium 100 Chloride 0.9% 100 ml @ 25 mls/hr IVPB Q12HR [facility] Rx #:[id number] metroNIDAZOLE-NS PMX 500 200 mg In Saline 1 100ml.bag @ 100 mls/hr IVPB Q8H [facility] Rx#:[id number] Oral 480 500 Other: Voiding Method Toilet Toilet # Voids 2 - Constitutional General appearance: Present: cooperative, mild distress, thin - EENT Eyes: Present: anicteric sclerae, EOMI ENT: Present: hearing grossly normal, normal oropharynx - Respiratory Respiratory: bilateral: CTA - Cardiovascular Rhythm: regular Heart sounds: normal: S1, S2 Abnormal Heart Sounds: Absent: systolic murmur, diastolic murmur, rub, S3 Gallop, S4 Gallop, click, other - Peripheral edema leg Peripheral Edema: bilateral: None - Gastrointestinal General gastrointestinal: Present: soft, tenderness Localized gastrointestinal: tender: suprabubic - Neurologic Neurologic: Present: CNII-XII intact - Musculoskeletal Musculoskeletal: Present: strength equal bilaterally - Psychiatric Psychiatric: Present: A&O x's 3, appropriate affect, intact judgment & insight - Labs CBC & Chem 7: 03/27/21 06:38 03/27/21 06:38 Labs: Abnormal Lab Results - Last 24 Hours (Table) 0803/27/21 03/27/21 Range/Units 14:50 06:38 06:38 RBC 3.29 L (3.80-5.40) m/uL Hgb 9.4 L (11.4-16.0) gm/dL Hct 31.9 L (34.0-46.0) % MCHC 29.3 L (31.0-37.0) g/dL RDW 19.5 H (11.5-15.5) % Sodium 134 L (137-145) mmol/L AST 42 H (14-36) U/L ALT 50 H (4-34) U/L Total Protein 5.3 L (6.3-8.2) g/dL Albumin 2.7 L (3.5-5.0) g/dL Stool Calprotectin 168.0 H (<50) mcg/g Microbiology - Last 24 Hours (Table) 03/24/21 14:50 Stool Culture - Preliminary Stool 03/24/21 14:30 Blood Culture - Preliminary Blood No Growth after 48 hours 03/24/21 14:38 Blood Culture - Preliminary Blood No Growth after 48 hours Assessment and Plan (1) Febrile neutropenia Narrative/Plan: WBC is improving, ANC is within normal limits. Fever pattern has abated. ID has seen patient. CT of the abdomen and pelvis is reporting area around mal ignancy is larger, patient is only had 1 cycle, this could be tumor necrosis and possibly an abscess. Infectious disease has antibiotics ordered. New CT ordered today to reassess since pt pain and nausea have increased Current Visit: Yes Status: Acute Priority: High Code(s): D70.9 - NEUTROPE SUMANTH, UNSPECIFIED; R50.81 - FEVER PRESENTING WITH CONDITIONS CLASSIFIED ELSEWHERE SNOMED Code(s): 618766880 (2) Rectal cancer Narrative/Plan: S/P 1st cycle of neoadjuvant treatment. Delay 2nd cycle until abx complete and current medical condition is managed. Pt was feeling depressed, angry, and scared that she won't be able to handle treatment. Discussed with pt her feelings are justified, she can be all those emotions and she can say whatever she needs to to feel better but, she will make decisions about treatment only w hen she is feeling better. She agreed with plan. Gave pt ativan for anxiety and since she has missed 2 or doses of her lexapro and xanax. Current Visit: Yes Status: Acute Priority: High Code(s): C20 - MALIGNANT NEOPLASM OF RECTUM SNOMED Code(s): 398004029
[2021-03-27] MEDS ORDERED: LORazepam 2 MG/ML INJ IV PRN (15:34)
--- NOTE | 2021-03-27 15:41 | CT ---
EXAMINATION TYPE: CT abdomen pelvis wo con DATE OF EXAM: 03/27/2021 COMPARISON: 03/25/2021 INDICATION: Abdominal pain and tenderness w/vomiting. DLP: 228.40 mGycm, Automated exposure control for dose reduction was used. CONTRAST: 0 mL of Isovue 300. Study performed without Oral Contrast TECHNIQUE: Axial images were obtained from above the diaphragm to the pubic rami in the axial plane a t 5 mm thick sections. Reconstructed images are reviewed on the computer in the coronal plane. FINDINGS: Limited CT sections are obtained the lung bases. The lung bases are clear. CT ABDOMEN: Liver: Normal Spleen: Normal Pancreas: Normal Adrenal glands: The adrenal glands are normal. Gallbladder: Normal Kidneys: No masses are evident. No hydronephrosis is present. No cysts are present. No renal stone s are evident. Aorta: Normal Inferior vena cava: Normal. CT PELVIS: Some postsurgical bowel no dilated bowel are evident changes within the left upper quadrant of the ab domen There are loops of bowel which are incompletely distended or lack oral contrast limiting their evaluation. Appendix: Normal as visualized. Urinary bladder: Normal. Genitourinary structures: Uterus appears unremarkable. A 2.9 cm cyst on the left ovary. Right adnexa appears normal. The rectum appears thickened. Perirectal lymph nodes are present. Correlate for infec tion or neoplasm. Additional workup is recommended. Osseous structures: No suspicious lytic or sclerotic lesions. COMPARISON: No significant interval change IMPRESSIONS: 1. Perirectal thickening with perirectal adenopathy can be compatible with the patient's reported re ctal carcinoma. Local metastasis may be present. 2. 2.9 cm left renal cyst.
[2021-03-28] MEDS: KETOROLAC 15 MG/ML 1 ML VIAL IVP PRN ×3 (00:32→12:14)
[2021-03-28] MEDS: METOCLOPRAMIDE 5 MG/ML 2 ML VIAL IVP PRN ×3 (00:32→15:20)
--- NOTE | 2021-03-28 00:38 | PN ---
PROGRESS NOTE DATE OF SERVICE: 03/27/2021 REASON FOR FOLLOWUP: Fever and evidence of colitis. INTERVAL HISTORY: The patient is afebrile. The patient is breathing comfortably. Denies any chest pain, shortness of breath or cough. No abdominal pain, diarrhea, but no blood PHYSICAL EXAMINATION: Blood pressure is 139/78 with a temperature of 98.7. She is 97% on room air. General description is a middle-aged female lying in bed in no distress. Respiratory system: Unlabored breathing, clear to auscultation anteriorly. Heart S1, S2. Regular rate and rhythm. Abdomen soft, no tenderness. LABS: Hemoglobin 9.4, white count 7.5, BUN of 16, creatinine 0.68. DIAGNOSTIC IMPRESSION AND PLAN: Patient admitted to the hospital with fever and leukopenia with recent chemo. CT with evidence of Covid. Patient is responding to cefepime and Flagyl to continue. Transition to oral antibiotic on discharge. Continue supportive care. MMODL / IJN: [id number] /
[2021-03-28] MEDS: metroNIDAZOLE-NS PMX 500 MG in SALINE 1 100ML.BAG IVPB SCH ×2 (03:34→12:15)
[2021-03-28] MEDS: CEFEPIME 2 GM in SODIUM CHLORIDE 0.9% 100 ML IVPB SCH (07:15)
[2021-03-28] MEDS: PANTOPRAZOLE 40 MG/10 ML VIAL IVP SCH (07:16)
[2021-03-28] MEDS: HEPARIN SODIUM,PORCINE/PF 5,000 UNIT/0.5 ML SYRINGE SQ SCH ×2 (07:16→07:23)
[2021-03-28] MEDS: ESCITALOPRAM 20 MG TAB PO SCH (07:17)
[2021-03-28 11:19] VITALS: BP 133/57; PULSE 67; TEMP 97.9
[2021-03-28] MEDS: CHOLESTYRAMINE (WITH SUGAR) 4 GM PACKET PO SCH (12:34)
[2021-03-28 14:03] LABS: ALT 55 U/L (4-34); AST 75 U/L (14-36); African American GFR (CKD) >90 (>60 ml/min/1.73 sqM); Albumin 2.9 g/dL (3.5-5.0); Albumin/Globulin Ratio 1.1; Alkaline Phosphatase 101 U/L (38-126); Anion Gap 8 mmol/L; Blood Urea Nitrogen 18 mg/dL (7-17); Calcium 8.5 mg/dL (8.4-10.2); Carbon Dioxide 23 mmol/L (22-30); Chloride 106 mmol/L (98-107); Globulin 2.6 g/dL; Glucose 97 mg/dL (74-99); Non-African American GFR(CKD) >90 (>60 ml/min/1.73 sqM); Potassium 4.1 mmol/L (3.5-5.1); Sodium 137 mmol/L (137-145); Total Bilirubin 0.3 mg/dL (0.2-1.3); Total Protein 5.5 g/dL (6.3-8.2)
[2021-03-28 14:32] LABS: Anisocytosis Slight; HCT 30.7 % (34.0-46.0); HGB 9.5 gm/dL (11.4-16.0); Hypochromasia Marked; MCH 29.3 pg (25.0-35.0); MCHC 30.8 g/dL (31.0-37.0); MCV 95.2 fL (80.0-100.0); Macrocytosis Slight; Mean Platelet Volume 7.4; Platelet Count 428 k/uL (150-450); RBC 3.23 m/uL (3.80-5.40); RDW 19.5 % (11.5-15.5); WBC 9.3 k/uL (3.8-10.6)
--- NOTE | 2021-03-28 14:59 | P.PN ---
Subjective Progress Note Date: 03/28/21 Principal diagnosis: Nausea and Pain repeat CT does not reveal significant change from prior. Remains afebrile Objective - Vital Signs Vital signs: Vital Signs Temp 97.9 F 03/28/21 11:17 Pulse 67 03/28/21 11:17 Resp 18 03/28/21 11:17 BP 133/57 03/28/21 11:17 Pulse Ox 98 03/28/21 11:17 Intake & Output 03/27/21 03/28/21 03/28/21 18:59 06:59 18:59 Intake Total 700 Balance 700 Intake: Intake, IV Titration 300 Amount Cefepime 2 gm In Sodium 100 Chloride 0.9% 100 ml @ 25 mls/hr IVPB Q12HR [facility] Rx #:[id number] metroNIDAZOLE-NS PMX 500 200 mg In Saline 1 100ml.bag @ 100 mls/hr IVPB Q8H [facility] Rx#:[id number] Oral 400 Other: Voiding Method Toilet Toilet # Voids 2 1 - Exam - Constitutional General appearance: Present: cooperative, mild distress, thin - EENT Eyes: Present: anicteric sclerae, EOMI ENT: Present: hearing grossly normal, normal oropharynx - Respiratory Respiratory: bilateral: CTA - Cardiovascular Rhythm: regular Heart sounds: normal: S1, S2 Abnormal Heart Sounds: Absent: systolic murmur, diastolic murmur, rub, S3 Gallop, S4 Gallop, click, other - Peripheral edema leg Peripheral Edema: bilateral: None - Gastrointestinal General gastrointestinal: Present: soft, tenderness Localized gastrointestinal: tender: suprabubic - Neurologic Neurologic: Present: CNII-XII intact - Musculoskeletal Musculoskeletal: Present: strength equal bilaterally - Psychiatric Psychiatric: Present: A&O x's 3, appropriate affect, intact judgment & insight - Labs CBC & Chem 7: 03/28/21 13:25 03/28/21 13:24 Labs: Abnormal Lab Results - Last 24 Hours (Table) 03/27/21 03/27/21 Range/Units 06:38 06:38 ESR 34 H (0-30) mm/Hr C-Reactive Protein 3.4 H (0.0-0.8) mg/dL Microbiology - Last 24 Hours (Table) 03/24/21 14:50 Stool Culture - Final Stool 03/24/21 14:30 Blood Culture - Preliminary Blood No Growth after 72 hours 03/24/21 14:38 Blood Culture - Preliminary Blood No Growth after 72 hours Assessment and Plan Plan: Assessment and Plan Febrile neutropenia: - Afebrile 24 hours - WBC is improving, ANC is within normal limits. - CT of the abdomen and pelvis is reporting area around malignancy is larger, patient has only had 1 cycle, this could be tumor necrosis and possibly an abscess. - Infectious disease is following and managing antibiotics. - New CT 03/27 without significant change from last Current Visit: Yes Status: Acute Priority: High Code(s): D70.9 - NEUTROPENIA, UNSPECIFIED; R50.81 - FEVER PRESENTING WITH CONDITIONS CLASSIFIED ELSEWHERE SNOMED Code(s): 967783599 Rectal cancer - Status Post cycle one of [place] Chemotherapy - Await resolution of hospitalization and completion of antibiotics prior to cycle two cemotherapy Current Visit: Yes Status: Acute Priority: High Code(s): C20 - MALIGNANT NEOPLASM OF RECTUM SNOMED Code(s): 778836618 Per nursing patient would like to go home today. Physician Attest: I have completed the full history and physical and agree with above dictation, dictated as a ascribe
[2021-03-28 15:07] LABS: Band Neutrophils % 10 %; Basophils # (M) 0.09 k/uL (0-0.2); Eosinophils # (M) 0.09 k/uL (0-0.7); Lymphocytes # (M) 0.65 k/uL (1.0-4.8); Metamyelocytes # (M) 0.65 k/uL (0); Metamyelocytes % 7 %; Monocytes # (M) 0.93 k/uL (0-1.0); Myelocytes # (M) 0.65 k/uL (0); Myelocytes % 7 %; Neutrophils % (M) 59 %; Nucleated Red Blood Cells 0 /100 WBC (0-0); Total Cells Counted 200
[2021-03-28 15:09] LABS: Poikilocytosis (M) Present; Tear Drop Cells Present
[2021-03-28 15:10] LABS: Toxic Granulation Present
[2021-03-28] MEDS: ALPRAZolam 1 MG TAB PO PRN (15:20)
--- NOTE | 2021-03-28 16:37 | PN ---
PROGRESS NOTE DATE OF SERVICE: 03/28/2021 REASON FOR FOLLOWUP: Fever, likely colitis. INTERVAL HISTORY: The patient's fever has resolved. The patient is feeling better. She is able to keep her food down. No further nausea or vomiting. Did have some rectal pain but no worsening. No chest pain, shortness of breath or cough. Overall feeling better. PHYSICAL EXAMINATION: Blood pressure 133/57, pulse of 77, temperature 97.9. She is 98% on room air. General description is a middle-aged female lying in bed in no distress. Respiratory system: Unlabored breathing, clear to auscultation anteriorly. Heart S1, S2. Regular rate and rhythm. Abdomen soft, no tenderness. LABS: Hemoglobin 9.5, white count 9.3, BUN of 18, creatinine 0.69. DIAGNOSTIC IMPRESSION AND PLAN: Patient admitted to the hospital with fever in this patient who did have an evidence of rectal edema, possible colitis. Overall improvement with cefepime and Flagyl. Finish therapy with oral Ceftin and Flagyl. The patient had multiple questions that were answered in layman's terms. MMODL / IJN: [id number] /
== END 2021-03-28 17:27 | disposition home or self-care (01) | DRG 872 ==
LOC: EC 12:20 → 5NMEDONC 15:02
PROVIDERS: ADMIT Internal Medicine; ATTEND Internal Medicine
DX: A41.9 Sepsis, unspecified organism (principal); C20 Malignant neoplasm of rectum; E44.0 Moderate protein-calorie malnutrition; K50.90 Crohn's disease, unspecified, without complications; Z68.1 Body mass index [BMI] 19.9 or less, adult; D70.3 Neutropenia due to infection; I95.9 Hypotension, unspecified; D64.9 Anemia, unspecified; E86.0 Dehydration; Z20.822 Contact with and (suspected) exposure to COVID-19; K62.89 Other specified diseases of anus and rectum; F32.9 Major depressive disorder, single episode, unspecified; R50.81 Fever presenting with conditions classified elsewhere; F41.9 Anxiety disorder, unspecified; Z79.890 Hormone replacement therapy; Z79.899 Other long term (current) drug therapy; Z85.820 Personal history of malignant melanoma of skin; Z98.51 Tubal ligation status; Z87.39 Personal history of other diseases of the musculoskeletal system and connective tissue; Z90.49 Acquired absence of other specified parts of digestive tract; Z98.890 Other specified postprocedural states; Z71.3 Dietary counseling and surveillance; Z88.0 Allergy status to penicillin; Z88.8 Allergy status to other drugs, medicaments and biological substances; Z91.041 Radiographic dye allergy status; Z80.1 Family history of malignant neoplasm of trachea, bronchus and lung; Z80.42 Family history of malignant neoplasm of prostate; Z83.2 Family history of diseases of the blood and blood-forming organs and certain disorders involving the immune mechanism
CPT/HCPCS: 36415; 71046; 74176; 80053; 81001; 83605; 83735; 83993; 84145; 85025; 85610; 85652; 85730; 86140; 87040; 87045; 87046; 87324; 87635; 93005; 96374; 99284

== ENCOUNTER 2021-09-23 17:51 | Observation (INO) | payer MEDICARE ==
[2021-09-23] MEDS ORDERED: SODIUM CHLORIDE 0.9% 500 ML 500 ML IV STA ×2 (19:27→21:00)
--- NOTE | 2021-09-23 19:34 | ED ---
General Adult HPI - General Chief complaint: Weakness Stated complaint: cancer pt, weakness Time Seen by Provider: 09/23/21 19:04 Source: patient, family Mode of arrival: wheelchair Limitations: no limitations - History of Present Illness Initial comments: 56-year-old female with a past medical history of Crohn's disease, melanoma, rectal cancer who presents to the emergency room for a chief complaint of weakness. Patient has had weakness for the past week or so. Patient states she just finished radiation on September 16 and then started to feel weak on September 17. Patient states she has had 3 falls since then because of this. She reports that she is also very tired and has been very cold. Patient finished chemotherapy at the end of June. Patient called her radiation oncologist Dr. Moraes and spoke to his nursing staff. They recommended she come to the hospital and stated her oncologist wanted her admitted. Patient also follows [facility] Dr. Jimenez. Patient has no other complaints at this time including shortness of breath, chest pain, abdominal pain, nausea or vomiting, headache, or visual changes. - Related Data Home Medications Medication Instructions Recorded Confirmed ALPRAZolam [Xanax] 1 mg PO BID PRN 01/30/21 08/27/21 Cholecalciferol [Vitamin D3 (25 25 mcg PO DAILY 01/30/21 08/27/21 Mcg = 1000 Iu)] Cyanocobalamin (Vitamin B-12) 5,000 mcg PO DAILY 01/30/21 08/27/21 [Vitamin B-12] Escitalopram [Lexapro] 20 mg PO DAILY 01/30/21 08/27/21 Ferrous Sulfate [Iron (65 MG 325 mg PO BID 01/30/21 08/27/21 Elemental)] HYDROcodone/APAP 5-325MG [[place] 1 tab PO Q4H PRN 01/30/21 08/27/21 5-325] Colestipol HCl 2 tab PO BID 09/23/21 09/23/21 Silver Sulfadiazine [SSD 1% Cream] 1 applic TOPICAL TID 09/23/21 09/23/21 Allergies Allergy/AdvReac Type Severity Reaction Status Date / Time amoxicillin Allergy Rash/Hives Verified 09/23/21 20:56 clavulanic acid Allergy Rash/Hives Verified 09/23/21 20:56 [From Augmentin] Iodinated Contrast Media Allergy Rash/Hives/throat Verified 09/23/21 20:56 swelling Penicillins Allergy Rash/Hives Verified 09/23/21 20:56 Review of Systems ROS Statement: Those systems with pertinent positive or pertinent negative responses have been documented in the HPI. ROS Other: All systems not noted in ROS Statement are negative. Past Medical History Past Medical History: Cancer Additional Past Medical History / Comment(s): Crohn's disease, malignant melanoma removed, rectal cancer, anemia History of Any Multi-Drug Resistant Organisms: None Reported Past Surgical History: Bowel Resection, Orthopedic Surgery, Tubal Ligation Additional Past Surgical History / Comment(s): sub total colectomy, colonoscopies, arthroscopy repair left knee Past Anesthesia/Blood Transfusion Reactions: Previous Problems w/ Anesthesia Additional Past Anesthesia/Blood Transfusion Reaction / Comment(s): wakes up during procedures, "seems to need alot for colonoscopies" Past Psychological History: Anxiety, Depression Smoking Status: Never smoker Past Alcohol Use History: None Reported Past Drug Use History: None Reported - Past Family History Mother Family Medical History: Cancer Additional Family Medical History / Comment(s): lung Father Family Medical History: Cancer Additional Family Medical History / Comment(s): prostate Sister(s) Family Medical History: Deep Vein Thrombosis (DVT), Pulmonary Embolus General Exam Limitations: no limitations General appearance: alert, in no apparent distress Head exam: Present: atraumatic Eye exam: Present: normal appearance, PERRL, EOMI. Absent: scleral icterus, conjunctival injection ENT exam: Present: normal exam, mucous membranes moist Neck exam: Present: normal inspection, full ROM. Absent: tenderness Respiratory exam: Present: normal lung sounds bilaterally. Absent: respiratory distress, wheezes Cardiovascular Exam: Present: regular rate, normal rhythm, normal heart sounds GI/Abdominal exam: Present: soft, normal bowel sounds. Absent: distended, tenderness Neurological exam: Present: alert Course Vital Signs 09/23/21 18:18 Temperature 97.8 F Pulse Rate 110 H Respiratory 20 Rate Blood Pressure 130/74 O2 Sat by Pulse 99 Oximetry EKG Findings - EKG Comments: EKG Findings:: Normal sinus rhythm, ventricular rate 92, WI interval 134, QTc 469 Medical Decision Making - Medical Decision Making Vitals are stable. Patient does appear fatigued. No distress. EKG shows a normal rhythm, unremarkable. CBC shows a hemoglobin of 9.4 which is patient in. CMP unremarkable. COVID-19 negative. Patient was sent in by oncology fwho were requesting admission given weakness leading to multiple falls and recent radiation. Patient hit her head about a week ago but otherwise no head injuries with these falls. I discussed this case with Radha Judge from [facility], she will admit patient and we will consult oncology. - Lab Data Result diagrams: 09/23/21 20:05 09/23/21 20:05 Lab Results 09/23/21 09/23/21 09/23/21 Range/Units 20:05 20:05 20:05 WBC 5.8 (3.8-10.6) k/uL RBC 2.57 L (3.80-5.40) m/uL Hgb 9.4 L (11.4-16.0) gm/dL Hct 27.7 L (34.0-46.0) % MCV 107.9 H (80.0-100.0) fL MCH 36.5 H (25.0-35.0) pg MCHC 33.9 (31.0-37.0) g/dL RDW 19.9 H (11.5-15.5) % Plt Count 173 (150-450) k/uL MPV 7.3 Anisocytosis Slight Macrocytosis Marked A APTT 25.9 (22.0-30.0) sec Sodium 135 L (137-145) mmol/L Potassium 3.9 (3.5-5.1) mmol/L Chloride 103 (98-107) mmol/L Carbon Dioxide 25 (22-30) mmol/L Anion Gap 7 mmol/L BUN 11 (7-17) mg/dL Creatinine 0.57 (0.52-1.04) mg/dL Est GFR (CKD-EPI)AfAm >90 (>60 ml/min/1.73 sqM) Est GFR (CKD-EPI)NonAf >90 (>60 ml/min/1.73 sqM) Glucose 101 H (74-99) mg/dL Plasma Lactic Acid Marcelino (0.7-2.0) mmol/L Calcium 9.1 (8.4-10.2) mg/dL Magnesium 1.8 (1.6-2.3) mg/dL Total Bilirubin 1.2 (0.2-1.3) mg/dL AST 35 (14-36) U/L ALT 14 (4-34) U/L Alkaline Phosphatase 194 H (38-126) U/L Total Protein 6.3 (6.3-8.2) g/dL Albumin 3.2 L (3.5-5.0) g/dL Coronavirus (PCR) (Not Detectd) 09/23/21 09/23/21 Range/Units 20:05 20:05 WBC (3.8-10.6) k/uL RBC (3.80-5.40) m/uL Hgb (11.4-16.0) gm/dL Hct (34.0-46.0) % MCV (80.0-100.0) fL MCH (25.0-35.0) pg MCHC (31.0-37.0) g/dL RDW (11.5-15.5) % Plt Count (150-450) k/uL MPV Anisocytosis Macrocytosis APTT (22.0-30.0) sec Sodium (137-145) mmol/L Potassium (3.5-5.1) mmol/L Chloride (98-107) mmol/L Carbon Dioxide (22-30) mmol/L Anion Gap mmol/L BUN (7-17) mg/dL Creatinine (0.52-1.04) mg/dL Est GFR (CKD-EPI)AfAm (>60 ml/min/1.73 sqM) Est GFR (CKD-EPI)NonAf (>60 ml/min/1.73 sqM) Glucose (74-99) mg/dL Plasma Lactic Acid Marcelino 0.9 (0.7-2.0) mmol/L Calcium (8.4-10.2) mg/dL Magnesium (1.6-2.3) mg/dL Total Bilirubin (0.2-1.3) mg/dL AST (14-36) U/L ALT (4-34) U/L Alkaline Phosphatase (38-126) U/L Total Protein (6.3-8.2) g/dL Albumin (3.5-5.0) g/dL Coronavirus (PCR) Not Detected (Not Detectd) Disposition Clinical Impression: Weakness, Rectal cancer, Multiple falls Disposition: ADMITTED IP TO THIS HOSP Is patient prescribed a controlled substance at d/c from ED?: No Referrals: None,Stated [Primary Care Provider] - 1-2 days Time of Disposition: 21:00
[2021-09-23 20:10] LABS: Anisocytosis Slight; Basophils % (A) 0 %; Eosinophils % (A) 0 %; HCT 27.7 % (34.0-46.0); HGB 9.4 gm/dL (11.4-16.0); Lymphocytes # (A) 0.2 k/uL (1.0-4.8); Lymphocytes % (A) 3 %; MCH 36.5 pg (25.0-35.0); MCHC 33.9 g/dL (31.0-37.0); MCV 107.9 fL (80.0-100.0); Macrocytosis Marked; Mean Platelet Volume 7.3; Monocytes # (A) 0.3 k/uL (0-1.0); Monocytes % (A) 6 %; Neutrophils # (A) 5.2 k/uL (1.3-7.7); Neutrophils % (A) 90 %; Platelet Count 173 k/uL (150-450); RBC 2.57 m/uL (3.80-5.40); RDW 19.9 % (11.5-15.5); WBC 5.8 k/uL (3.8-10.6)
[2021-09-23 20:20] LABS: ALT 14 U/L (4-34); AST 35 U/L (14-36); African American GFR (CKD) >90 (>60 ml/min/1.73 sqM); Albumin 3.2 g/dL (3.5-5.0); Alkaline Phosphatase 194 U/L (38-126); Anion Gap 7 mmol/L; Blood Urea Nitrogen 11 mg/dL (7-17); Calcium 9.1 mg/dL (8.4-10.2); Carbon Dioxide 25 mmol/L (22-30); Chloride 103 mmol/L (98-107); Glucose 101 mg/dL (74-99); Magnesium 1.8 mg/dL (1.6-2.3); Non-African American GFR(CKD) >90 (>60 ml/min/1.73 sqM); Potassium 3.9 mmol/L (3.5-5.1); Sodium 135 mmol/L (137-145); Total Bilirubin 1.2 mg/dL (0.2-1.3); Total Protein 6.3 g/dL (6.3-8.2)
[2021-09-23 20:53] LABS: Appearance,Urine Cloudy (Clear); Bilirubin,Urine Negative (Negative); Blood,Urine Small (Negative); Color,Urine Yellow; Glucose,Urine (UA) Negative (Negative); Ketones,Urine Negative (Negative); Leukocyte Esterase,Urine Large (Negative); Mucus,Urine Occasional /hpf; Nitrite,Urine Negative (Negative); PH, Urine 5.5 (5.0-8.0); Protein,Urine Trace (Negative); RBC,Urine 5 /hpf (0-5); Squamous Epithelial Cell,Urine <1 /hpf (0-4); Urobilinogen,Urine <2.0 mg/dL (<2.0); WBC,Urine 49 /hpf (0-5)
[2021-09-23] MEDS ORDERED: ONDANSETRON 4 MG/2 ML VIAL IVP PRN (21:01)
[2021-09-23] MEDS ORDERED: NALOXONE 0.4 MG/ML 1 ML VIAL IV PRN (21:01)
--- NOTE | 2021-09-23 21:01 | XR ---
EXAMINATION TYPE: XR chest 2V DATE OF EXAM: 09/23/2021 COMPARISON: March 24, 2021 HISTORY: Weakness TECHNIQUE: FINDINGS: Heart is normal. Lungs are clear of infiltrate. There is no heart failure. There are no hil ar masses. There is right central venous catheter with tip in the superior vena cava. The bony thorax is intact. IMPRESSION: Normal chest. No change.
[2021-09-23] MEDS ORDERED: ALPRAZolam 1 MG TAB PO PRN (21:03)
[2021-09-23] MEDS ORDERED: HYDROcodone/APAP 5-325MG 1 EACH TAB PO PRN (21:03)
[2021-09-23] MEDS ORDERED: cefTRIAXone IN SWFI 1,000 MG/10 ML SYRINGE IVP ONE (21:30)
[2021-09-24] MEDS: HYDROmorphone 0.5 MG/0.5 ML SYRINGE IVP PRN ×2 (01:52→05:06)
[2021-09-24] MEDS: SODIUM CHLORIDE 0.9% 1,000 ML IV SCH ×2 (02:03→16:29)
[2021-09-24] MEDS: SILVER sulfADIAZINE Cream 400 GM 1 APPLIC APPLIC TOPICAL SCH ×3 (05:05→21:30)
[2021-09-24 06:52] LABS: Anisocytosis Slight; Basophils % (A) 0 %; Eosinophils % (A) 0 %; HCT 28.1 % (34.0-46.0); HGB 9.3 gm/dL (11.4-16.0); Hypochromasia Slight; Lymphocytes # (A) 0.2 k/uL (1.0-4.8); Lymphocytes % (A) 5 %; MCH 36.4 pg (25.0-35.0); MCHC 33.1 g/dL (31.0-37.0); MCV 109.8 fL (80.0-100.0); Macrocytosis Marked; Mean Platelet Volume 7.3; Monocytes # (A) 0.3 k/uL (0-1.0); Monocytes % (A) 8 %; Neutrophils # (A) 3.3 k/uL (1.3-7.7); Neutrophils % (A) 86 %; Platelet Count 148 k/uL (150-450); RBC 2.56 m/uL (3.80-5.40); RDW 19.7 % (11.5-15.5); WBC 3.8 k/uL (3.8-10.6)
[2021-09-24] MEDS ORDERED: polyethylene glycoL 3350 17 GM POWD.PACK PO PRN (08:42)
[2021-09-24] MEDS: FERROUS SULFATE 325 MG TAB PO SCH ×2 (08:56→21:30)
[2021-09-24] MEDS: CHOLECALCIFEROL 25 MCG (1000 IU) TABLET PO SCH (08:57)
[2021-09-24] MEDS: CYANOCOBALAMIN 500 MCG TAB PO SCH (08:57)
[2021-09-24] MEDS: PHENAZOPYRIDINE 100 MG TAB PO SCH ×3 (09:00→21:30)
[2021-09-24] MEDS ORDERED: cefTRIAXone IN SWFI 1,000 MG/10 ML SYRINGE IVP SCH (09:00)
[2021-09-24] MEDS: NON FORMULARY DRUG (Colestipol Hcl [Colestipol Hcl] 1 GM Tablet) PO SCH ×2 (09:02→21:31)
[2021-09-24 09:44] LABS: % Iron Saturation 21.46 (12.00-45.00); Folate, Serum 9.8 ng/mL (4.40-31.00)
--- NOTE | 2021-09-24 10:17 | P.CONS ---
History of Present Illness - Chief Complaint Medical debility - History of Present Illness I had the opportunity to see patient for inpatient rehab consultation with regard to medical debility. Patient admitted to [facility] September 23, yesterday, with known Crohn's disease and rectal cancer actively undergoing chemo and radiation therapies. Patient admitted with severe weakness. Chest x-ray negative. PT and OT prescribed. Previous functional history as elicited from patient: 56-year-old right-handed white female who is lives and 2 floor home with . 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 Patient on disability related to Crohn's and anxiety. She is independent with laundry, driving, sitdown shower and gait without device. Does not have regular PCP. Denies tobacco and has rare drink. Review of Systems Review of systems: ENT: Denies sneezes or discharge. Eyes: Denies discharge or photophobia. Cardiac: Denies chest pain or palpitation. Pulmonary: Denies cough or shortness of breath. Breast: Denies discharge or lumps. Gastrointestinal: Crohn's and rectal cancer. Genitourinary: Denies discharge or frequency. Musculoskeletal: Denies muscle or bone aches. Neurologic: Severe generalized weakness. Endocrine: Denies shakes or sweats. Oncology: Denies cancers. Dermatologic: Denies rash, itching, pruritus. ALLERGY/immunology: Denies sneezes, rashes. Past Medical History Past Medical History: Cancer Additional Past Medical History / Comment(s): Crohn's disease, 2020 malignant melanoma removed, rectal cancer, anemia History of Any Multi-Drug Resistant Organisms: None Reported Past Surgical History: Bowel Resection, Orthopedic Surgery, Tubal Ligation Additional Past Surgical History / Comment(s): sub total colectomy, colonoscopies, arthroscopy repair left knee Past Anesthesia/Blood Transfusion Reactions: Previous Problems w/ Anesthesia Additional Past Anesthesia/Blood Transfusion Reaction / Comm: wakes up during procedures, "seems to need alot for colonoscopies" Past Psychological History: Anxiety, Depression Smoking Status: Never smoker Past Alcohol Use History: None Reported Past Drug Use History: None Reported - Past Family History Mother Family Medical History: Cancer Additional Family Medical History / Comment(s): lung Father Family Medical History: Cancer Additional Family Medical History / Comment(s): prostate Sister(s) Family Medical History: Deep Vein Thrombosis (DVT), Pulmonary Embolus Medications and Allergies Home Medications Medication Instructions Recorded Confirmed Type ALPRAZolam [Xanax] 1 mg PO BID PRN 01/30/21 09/23/21 History Cholecalciferol [Vitamin D3 (25 25 mcg PO DAILY 01/30/21 09/23/21 History Mcg = 1000 Iu)] Cyanocobalamin (Vitamin B-12) 5,000 mcg PO DAILY 01/30/21 09/23/21 History [Vitamin B-12] Escitalopram [Lexapro] 20 mg PO DAILY 01/30/21 09/23/21 History Ferrous Sulfate [Iron (65 MG 325 mg PO BID 01/30/21 09/23/21 History Elemental)] HYDROcodone/APAP 5-325MG [[place] 1 tab PO QID PRN 01/30/21 09/23/21 History 5-325] Colestipol HCl 2 tab PO BID 09/23/21 09/23/21 History Silver Sulfadiazine [SSD 1% Cream] 1 applic TOPICAL TID 09/23/21 09/23/21 History Allergies Allergy/AdvReac Type Severity Reaction Status Date / Time amoxicillin Allergy Rash/Hives Verified 09/23/21 20:56 clavulanic acid Allergy Rash/Hives Verified 09/23/21 20:56 [From Augmentin] Iodinated Contrast Media Allergy Rash/Hives/throat Verified 09/23/21 20:56 swelling Penicillins Allergy Rash/Hives Verified 09/23/21 20:56 Physical Exam Vitals: Vital Signs Temp Pulse Pulse Pulse Resp BP BP 09/24/21 04:04 98.1 F 87 16 117/56 09/24/21 03:46 97.7 F 65 18 104/56 09/24/21 00:00 16 09/23/21 22:41 98.9 F 87 18 149/74 09/23/21 21:21 98.3 F 84 16 118/60 09/23/21 18:18 97.8 F 110 H 20 130/74 Pulse Ox 09/24/21 04:04 98 09/24/21 03:46 94 L 09/24/21 00:00 09/23/21 22:41 100 09/23/21 21:21 98 09/23/21 18:18 99 Intake and Output 09/23/21 09/24/21 09/24/21 22:59 06:59 14:59 Intake Total 525 Balance 525 Intake: Intake, IV Titration 525 Amount Sodium Chloride 0.9% 1, 525 000 ml @ 75 mls/hr IV . [id number] [facility] Rx#:[id number] Other: # Bowel Movements 1 # Emes[place] 0 Weight 50.802 kg Skin: Good color, texture, turgor. General: Thin, wasted build and comfortable appearance. Head: Normocephalic, atraumatic. Eyes: Symmetric. Pupils equal round. Ears: Symmetric. Hearing within normal limits. Mouth: Clear. Neck: Supple. Carotid without bruit. Cardiac: Regular rate and rhythm. Lungs: Clear anteriorly and posteriorly. Abdomen: Soft active nontender. Extremities: Normal tone. Thin limbs. Neurological: Mental status: Alert, cooperative, pleasant. Cranial nerves: Symmetric facial tone and trapezius. Motor: Can actively elevate all 4 limbs off of bed. Sensation: Intact throughout. DTRs: Symmetric and equal throughout. Mobility: Did not attempt to sit or stand at this time. Results CBC & Chem 7: 09/24/21 06:22 09/23/21 20:05 Labs: Abnormal Lab Results - Last 24 Hours (Table) 09/23/21 09/23/21 09/23/21 Range/Units 20:05 20:05 20:05 RBC 2.57 L (3.80-5.40) m/uL Hgb 9.4 L (11.4-16.0) gm/dL Hct 27.7 L (34.0-46.0) % MCV 107.9 H (80.0-100.0) fL MCH 36.5 H (25.0-35.0) pg RDW 19.9 H (11.5-15.5) % Plt Count (150-450) k/uL Lymphocytes # 0.2 L (1.0-4.8) k/uL Macrocytosis Marked A Sodium 135 L (137-145) mmol/L Glucose 101 H (74-99) mg/dL Ferritin (10.0-291.0) ng/mL Alkaline Phosphatase 194 H (38-126) U/L Albumin 3.2 L (3.5-5.0) g/dL Vitamin B12 (200.0-944.0) pg/mL Urine Appearance Cloudy H (Clear) Urine Protein Trace H (Negative) Urine Blood Small H (Negative) Ur Leukocyte Esterase Large H (Negative) Urine WBC 49 H (0-5) /hpf Urine Mucus Occasional H (None) /hpf 09/24/21 09/24/21 Range/Units 06:22 06:22 RBC 2.56 L (3.80-5.40) m/uL Hgb 9.3 L (11.4-16.0) gm/dL Hct 28.1 L (34.0-46.0) % MCV 109.8 H (80.0-100.0) fL MCH 36.4 H (25.0-35.0) pg RDW 19.7 H (11.5-15.5) % Plt Count 148 L (150-450) k/uL Lymphocytes # 0.2 L (1.0-4.8) k/uL Macrocytosis Marked A Sodium (137-145) mmol/L Glucose (74-99) mg/dL Ferritin 1344.0 H (10.0-291.0) ng/mL Alkaline Phosphatase (38-126) U/L Albumin (3.5-5.0) g/dL Vitamin B12 1717.0 H (200.0-944.0) pg/mL Urine Appearance (Clear) Urine Protein (Negative) Urine Blood (Negative) Ur Leukocyte Esterase (Negative) Urine WBC (0-5) /hpf Urine Mucus (None) /hpf Microbiology - Last 24 Hours (Table) 09/23/21 20:05 Urine Culture - Preliminary Urine,Clean Catch Assessment and Plan (1) Multiple falls Current Visit: Yes Status: Acute Code(s): R29.6 - REPEATED FALLS SNOMED Code(s): 089669675 (2) Rectal cancer Current Visit: Yes Status: Acute Priority: High Code(s): C20 - MALIGNANT NEOPLASM OF RECTUM SNOMED Code(s): 905581981 (3) Weakness Current Visit: Yes Status: Acute Code(s): R53.1 - WEAKNESS SNOMED Code(s): 18777646 (4) Febrile neutropenia Current Visit: No Status: Acute Priority: High Code(s): D70.9 - NEUTROPENIA, UNSPECIFIED; R50.81 - FEVER PRESENTING WITH CONDITIONS CLASSIFIED ELSEWHERE SNOMED Code(s): 529555641 Plan: Comments and plan: At this time PT and OT are prescribed. Follow therapies with yourself. Patient just admitted and so endurance may not preclude inpatient rehab at this time. Will follow closely with yourself and for PT and OT results in order to make recommendation on inpatient rehab.
[2021-09-24] MEDS: ESCITALOPRAM 20 MG TAB PO SCH (11:15)
--- NOTE | 2021-09-24 11:43 | P.CONS ---
History of Present Illness - Reason for Consult Consult date: 09/24/21 Rectal Cancer Requesting physician: Jared Carroll - History of Present Illness More presented with episodes of Hematochezia with mucus and pelvic pressure X 6 months, it was initially attributed by patient to a breakthrough focally active Crohn's disease. 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 The patient stated have lost 10 lbs in last 3 months, she is a lifetime non smoker, Denies ETOH use. The patient had subtotal colectomy [address] Garcia, on Imuran for control of Crohn's disease (Dr Gomes) 02/26/21: still having hematochezia 03/31/21-She feels so much better after release from hospital (03/24-03/28 for low WBC and vomiting, she was in ofc for cycle 2), she had Tmax of 100.2F, no stool infection, no abscess, CT showing area where rectal mass is was measuring larger. Pt improved with abx, felt her symptoms were more consistent with tumor fever, necrosis. She is doing much better today, mild nausea and gas but nothing severe, she is tolerating oral intake. Diarrhea is better at this time. On flagyl and cefepime. No fevers. 05/01/21: Feels better, diarrhea improved, trying to sustain increased oral fluids intake. C/O generalized fatigue. Was hospitalized with Neutropenic fever > recovered well. She completed 3 cycles of Neoadjuvant FOLFOX Chemotherapy. 05/16/21: Feels ok, seen Dr. Prieto this week, plan sig post radiation and then plan surgery dates. 07/24/21: Completed Chemotherapy, seen by Rad/Onc, XRT to start 08/06/21. Last visit Patient was given IV hydration and PRBC for hemoglobin 7.4. She now presents to hospital with continued rectal bleeding. During assessment this am, patient has mucus like diarrhea. Stool studies ordered. She has open area from crack of buttock through to entry of vaginal canal, erythema, cleaned well and silvadene applied. Review of Systems All systems: negative Constitutional: Reports as per HPI Past Medical History Past Medical History: Cancer Additional Past Medical History / Comment(s): Crohn's disease, 2020 malignant melanoma removed, rectal cancer, anemia History of Any Multi-Drug Resistant Organisms: None Reported Past Surgical History: Bowel Resection, Orthopedic Surgery, Tubal Ligation Additional Past Surgical History / Comment(s): sub total colectomy, colonoscopies, arthroscopy repair left knee Past Anesthesia/Blood Transfusion Reactions: Previous Problems w/ Anesthesia Additional Past Anesthesia/Blood Transfusion Reaction / Comm: wakes up during procedures, "seems to need alot for colonoscopies" Past Psychological History: Anxiety, Depression Smoking Status: Never smoker Past Alcohol Use History: None Reported Past Drug Use History: None Reported - Past Family History Mother Family Medical History: Cancer Additional Family Medical History / Comment(s): lung Father Family Medical History: Cancer Additional Family Medical History / Comment(s): prostate Sister(s) Family Medical History: Deep Vein Thrombosis (DVT), Pulmonary Embolus Medications and Allergies Home Medications Medication Instructions Recorded Confirmed Type ALPRAZolam [Xanax] 1 mg PO BID PRN 01/30/21 09/23/21 History Cholecalciferol [Vitamin D3 (25 25 mcg PO DAILY 01/30/21 09/23/21 History Mcg = 1000 Iu)] Cyanocobalamin (Vitamin B-12) 5,000 mcg PO DAILY 01/30/21 09/23/21 History [Vitamin B-12] Escitalopram [Lexapro] 20 mg PO DAILY 01/30/21 09/23/21 History Ferrous Sulfate [Iron (65 MG 325 mg PO BID 01/30/21 09/23/21 History Elemental)] HYDROcodone/APAP 5-325MG [[place] 1 tab PO QID PRN 01/30/21 09/23/21 History 5-325] Colestipol HCl 2 tab PO BID 09/23/21 09/23/21 History Silver Sulfadiazine [SSD 1% Cream] 1 applic TOPICAL TID 09/23/21 09/23/21 History Allergies Allergy/AdvReac Type Severity Reaction Status Date / Time amoxicillin Allergy Rash/Hives Verified 09/23/21 20:56 clavulanic acid Allergy Rash/Hives Verified 09/23/21 20:56 [From Augmentin] Iodinated Contrast Media Allergy Rash/Hives/throat Verified 09/23/21 20:56 swelling Penicillins Allergy Rash/Hives Verified 09/23/21 20:56 Physical Exam Vitals: Vital Signs Temp Pulse Pulse Pulse Resp BP BP 09/24/21 04:04 98.1 F 87 16 117/56 09/24/21 03:46 97.7 F 65 18 104/56 09/24/21 00:00 16 09/23/21 22:41 98.9 F 87 18 149/74 09/23/21 21:21 98.3 F 84 16 118/60 09/23/21 18:18 97.8 F 110 H 20 130/74 Pulse Ox 09/24/21 04:04 98 09/24/21 03:46 94 L 09/24/21 00:00 09/23/21 22:41 100 09/23/21 21:21 98 09/23/21 18:18 99 Intake and Output 09/23/21 09/24/21 09/24/21 22:59 06:59 14:59 Intake Total 525 Balance 525 Intake: Intake, IV Titration 525 Amount Sodium Chloride 0.9% 1, 525 000 ml @ 75 mls/hr IV . [id number] [facility] Rx#:[id number] Other: # Bowel Movements 1 # Emeses 0 Weight 50.802 kg Weak and thin Buttock open area from top of buttock to vaginal opening - Constitutional General appearance: cooperative - EENT Eyes: EOMI ENT: NA/AT - Neck Neck: normal ROM - Respiratory Respiratory: bilateral: CTA - Cardiovascular Rhythm: regular - Gastrointestinal General gastrointestinal: soft - Integumentary Integumentary: pale - Neurologic Neurologic: CNII-XII intact - Musculoskeletal Musculoskeletal: generalized weakness - Psychiatric Psychiatric: A&O x's 3, appropriate affect, intact judgment & insight Results CBC & Chem 7: 09/24/21 06:22 09/23/21 20:05 Labs: Abnormal Lab Results - Last 24 Hours (Table) 09/23/21 09/23/21 09/23/21 Range/Units 20:05 20:05 20:05 RBC 2.57 L (3.80-5.40) m/uL Hgb 9.4 L (11.4-16.0) gm/dL Hct 27.7 L (34.0-46.0) % MCV 107.9 H (80.0-100.0) fL MCH 36.5 H (25.0-35.0) pg RDW 19.9 H (11.5-15.5) % Plt Count (150-450) k/uL Lymphocytes # 0.2 L (1.0-4.8) k/uL Macrocytosis Marked A Sodium 135 L (137-145) mmol/L Glucose 101 H (74-99) mg/dL Alkaline Phosphatase 194 H (38-126) U/L Albumin 3.2 L (3.5-5.0) g/dL Urine Appearance Cloudy H (Clear) Urine Protein Trace H (Negative) Urine Blood Small H (Negative) Ur Leukocyte Esterase Large H (Negative) Urine WBC 49 H (0-5) /hpf Urine Mucus Occasional H (None) /hpf 09/24/21 Range/Units 06:22 RBC 2.56 L (3.80-5.40) m/uL Hgb 9.3 L (11.4-16.0) gm/dL Hct 28.1 L (34.0-46.0) % MCV 109.8 H (80.0-100.0) fL MCH 36.4 H (25.0-35.0) pg RDW 19.7 H (11.5-15.5) % Plt Count 148 L (150-450) k/uL Lymphocytes # 0.2 L (1.0-4.8) k/uL Macrocytosis Marked A Sodium (137-145) mmol/L Glucose (74-99) mg/dL Alkaline Phosphatase (38-126) U/L Albumin (3.5-5.0) g/dL Urine Appearance (Clear) Urine Protein (Negative) Urine Blood (Negative) Ur Leukocyte Esterase (Negative) Urine WBC (0-5) /hpf Urine Mucus (None) /hpf Microbiology - Last 24 Hours (Table) 09/23/21 20:05 Urine Culture - Preliminary Urine,Clean Catch Chest x-ray: report reviewed Assessment and Plan (1) Multiple falls Narrative/Plan: Likely secondary to Hypotensive episodes, persistent diarrhea, dehydyration, and anemia Current Visit: Yes Status: Acute Code(s): R29.6 - REPEATED FALLS SNOMED Code(s): 850024538 (2) Rectal cancer Narrative/Plan: Status post FOLFOOX, now receiving concurrent radiation and Xeloda. Consult placed for Dr. Moraes She has struggled with recurrent Dehydration and anemia during this treatment Current Visit: Yes Status: Acute Priority: High Code(s): C20 - MALIGNANT NEOPLASM OF RECTUM SNOMED Code(s): 850136866 (3) Weakness Current Visit: Yes Status: Acute Code(s): R53.1 - WEAKNESS SNOMED Code(s): 31858975 Plan: keep area on behind clean and dry Use silvadene Recommend IPR if a candidate, discussed with patient as we are planning for surgical intervention since completion of neoadjuvant treatment Physician Attest: I have completed the fullhistory and physical and agree with above dictation, dictated as a scribe
--- NOTE | 2021-09-24 12:01 | P.HPIM ---
History of Present Illness Patient is a pleasant 56-year-old female with a history of Crohn's disease, myeloma and rectal cancer recently completed the radiation therapy on September 16 and completed chemotherapy in July came in with complains of generalized weakness and falls. Patient had symptoms of for dysuria because of which her primary care doctor ordered urine culture and urine analysis was started on Macrobid although urine culture did not show any bacteria after which I diabetic was discontinued. Patient had urine analysis here as well although there are some mild abnormalities did not really consistent with urinary tract infection and patient symptoms actually improved compared to before. Patient is still has some mild dysuria or burning sensation which is probably secondary to radiation therapy. Antibiotics are being discontinued at this time. Patient does have significant generalized weakness and some muscle atrophy patient did lose significant amount of weight and patient has loss of appetite. Physical therapy and occupational therapy evaluated the patient patient did well with them and patient doesn't want to go to rehab or inpatient rehab since patient did fairly well it was recommended that patient gets home care at home. Patient was also complaining of constipation patient had diarrhea shortly after radiation therapy and the patient was prescribed Imodium which led to constipation patient is presently constipated. REVIEW OF SYSTEMS: CONSTITUTIONAL: No fever, no malaise, no fatigue. HEENT: No recent visual problems or hearing problems. Denied any sore throat. CARDIOVASCULAR: No chest pain, orthopnea, PND, no palpitations, no syncope. PULMONARY: No shortness of breath, no cough, no hemoptysis. GASTROINTESTINAL: No diarrhea, no nausea, no vomiting, no abdominal pain. NEUROLOGICAL: No headaches, no weakness, no numbness. HEMATOLOGICAL: Denies any bleeding or petechiae. GENITOURINARY: Denies any burning micturition, frequency, or urgency. MUSCULOSKELETAL/RHEUMATOLOGICAL: Denies any joint pain, swelling, or any muscle pain. ENDOCRINE: Denies any polyuria or polydipsia. The rest of the 14-point review of systems is negative. PHYSICAL EXAMINATION: GENERAL: The patient is alert and oriented x3, not in any acute distress thin built HEENT: Pupils are round and equally reacting to light. EOMI. No scleral icterus. No conjunctival pallor. Normocephalic, atraumatic. No pharyngeal erythema. No thyromegaly. CARDIOVASCULAR: S1 and S2 present. No murmurs, rubs, or gallops. PULMONARY: Chest is clear to auscultation, no wheezing or crackles. ABDOMEN: Soft, nontender, nondistended, normoactive bowel sounds. No palpable organomegaly. MUSCULOSKELETAL: No joint swelling or deformity. EXTREMITIES: No cyanosis, clubbing, or pedal edema. NEUROLOGICAL: Gross neurological examination did not reveal any focal deficits. Generalized weakness and significant muscle atrophy SKIN: No rashes. Assessment and plan -Fall secondary to generalized weakness from radiation therapy chemotherapy and cancer and muscle atrophy patient will need physical therapy at home. PT and OT evaluate the patient here patient will be referred to home physical therapy and will be discharged home. -Abnormal urine not consistent with UTI, lot require any antibiotics antibiotics were discontinued. - loss of appetite a little prescribed Marinol for this -Normocytic anemia secondary to chemotherapy -Depression -Dysuria secondary to radiation patient will be given prescription for provided him Patient will be discharged today Past Medical History Past Medical History: Cancer Additional Past Medical History / Comment(s): Crohn's disease, 2020 malignant melanoma removed, rectal cancer, anemia History of Any Multi-Drug Resistant Organisms: None Reported Past Surgical History: Bowel Resection, Orthopedic Surgery, Tubal Ligation Additional Past Surgical History / Comment(s): sub total colectomy, colonoscopies, arthroscopy repair left knee Past Anesthesia/Blood Transfusion Reactions: Previous Problems w/ Anesthesia Additional Past Anesthesia/Blood Transfusion Reaction / Comment(s): wakes up during procedures, "seems to need alot for colonoscopies" Past Psychological History: Anxiety, Depression Smoking Status: Never smoker Past Alcohol Use History: None Reported Past Drug Use History: None Reported - Past Family History Mother Family Medical History: Cancer Additional Family Medical History / Comment(s): lung Father Family Medical History: Cancer Additional Family Medical History / Comment(s): prostate Sister(s) Family Medical History: Deep Vein Thrombosis (DVT), Pulmonary Embolus Medications and Allergies Home Medications Medication Instructions Recorded Confirmed Type ALPRAZolam [Xanax] 1 mg PO BID PRN 01/30/21 09/23/21 History Cholecalciferol [Vitamin D3 (25 25 mcg PO DAILY 01/30/21 09/23/21 History Mcg = 1000 Iu)] Cyanocobalamin (Vitamin B-12) 5,000 mcg PO DAILY 01/30/21 09/23/21 History [Vitamin B-12] Escitalopram [Lexapro] 20 mg PO DAILY 01/30/21 09/23/21 History Ferrous Sulfate [Iron (65 MG 325 mg PO BID 01/30/21 09/23/21 History Elemental)] HYDROcodone/APAP 5-325MG [[place] 1 tab PO QID PRN 01/30/21 09/23/21 History 5-325] Colestipol HCl 2 tab PO BID 09/23/21 09/23/21 History Silver Sulfadiazine [SSD 1% Cream] 1 applic TOPICAL TID 09/23/21 09/23/21 History Allergies Allergy/AdvReac Type Severity Reaction Status Date / Time amoxicillin Allergy Rash/Hives Verified 09/23/21 20:56 clavulanic acid Allergy Rash/Hives Verified 09/23/21 20:56 [From Augmentin] Iodinated Contrast Media Allergy Rash/Hives/throat Verified 09/23/21 20:56 swelling Penicillins Allergy Rash/Hives Verified 09/23/21 20:56 Physical Exam Vitals: Vital Signs Temp Pulse Pulse Pulse Resp BP BP 09/24/21 04:04 98.1 F 87 16 117/56 09/24/21 03:46 97.7 F 65 18 104/56 09/24/21 00:00 16 09/23/21 22:41 98.9 F 87 18 149/74 09/23/21 21:21 98.3 F 84 16 118/60 09/23/21 18:18 97.8 F 110 H 20 130/74 Pulse Ox 09/24/21 04:04 98 09/24/21 03:46 94 L 09/24/21 00:00 09/23/21 22:41 100 09/23/21 21:21 98 09/23/21 18:18 99 Intake and Output 09/23/21 09/24/21 09/24/21 22:59 06:59 14:59 Intake Total 525 Balance 525 Intake: Intake, IV Titration 525 Amount Sodium Chloride 0.9% 1, 525 000 ml @ 75 mls/hr IV . [id number] [facility] Rx#:[id number] Other: Voiding Method Bedside Commode # Bowel Movements 1 # [place] 0 Weight 50.802 kg Results CBC & Chem 7: 09/24/21 06:22 09/23/21 20:05 Labs: Abnormal Lab Results - Last 24 Hours (Table) 09/23/21 09/23/21 09/23/21 Range/Units 20:05 20:05 20:05 RBC 2.57 L (3.80-5.40) m/uL Hgb 9.4 L (11.4-16.0) gm/dL Hct 27.7 L (34.0-46.0) % MCV 107.9 H (80.0-100.0) fL MCH 36.5 H (25.0-35.0) pg RDW 19.9 H (11.5-15.5) % Plt Count (150-450) k/uL Lymphocytes # 0.2 L (1.0-4.8) k/uL Macrocytosis Marked A Sodium 135 L (137-145) mmol/L Glucose 101 H (74-99) mg/dL Ferritin (10.0-291.0) ng/mL Alkaline Phosphatase 194 H (38-126) U/L Albumin 3.2 L (3.5-5.0) g/dL Vitamin B12 (200.0-944.0) pg/mL Urine Appearance Cloudy H (Clear) Urine Protein Trace H (Negative) Urine Blood Small H (Negative) Ur Leukocyte Esterase Large H (Negative) Urine WBC 49 H (0-5) /hpf Urine Mucus Occasional H (None) /hpf 09/24/21 09/24/21 Range/Units 06:22 06:22 RBC 2.56 L (3.80-5.40) m/uL Hgb 9.3 L (11.4-16.0) gm/dL Hct 28.1 L (34.0-46.0) % MCV 109.8 H (80.0-100.0) fL MCH 36.4 H (25.0-35.0) pg RDW 19.7 H (11.5-15.5) % Plt Count 148 L (150-450) k/uL Lymphocytes # 0.2 L (1.0-4.8) k/uL Macrocytosis Marked A Sodium (137-145) mmol/L Glucose (74-99) mg/dL Ferritin 1344.0 H (10.0-291.0) ng/mL Alkaline Phosphatase (38-126) U/L Albumin (3.5-5.0) g/dL Vitamin B12 1717.0 H (200.0-944.0) pg/mL Urine Appearance (Clear) Urine Protein (Negative) Urine Blood (Negative) Ur Leukocyte Esterase (Negative) Urine WBC (0-5) /hpf Urine Mucus (None) /hpf Microbiology - Last 24 Hours (Table) 09/23/21 20:05 Urine Culture - Preliminary Urine,Clean Catch Thrombosis Risk Factor Assmnt - Choose All That Apply Any of the Below Risk Factors Present?: Yes Each Factor Represents 1 point: Age 41-60 years Other Risk Factors: Yes Each Risk Factor Represents 3 Points: Family history of DVT/PE Thrombosis Risk Factor Assessment Total Risk Factor Score: 4 Thrombosis Risk Factor Assessment Level: Moderate Risk
--- NOTE | 2021-09-24 14:48 | P.DS ---
Providers Date of admission: 09/23/21 21:25 Attending physician: Manny Webber Consults: 09/23/21 21:02 Consult Physician Routine Consulting Provider: Macho Jimenez Consult Reason/Comments: rectal CA, multiple falls, weakness Do you want consulting provider notified?: Yes 09/24/21 08:47 Consult Physician Routine Consulting Provider: Luis Moraes Consult Reason/Comments: current radiation Do you want consulting provider notified?: Yes 09/24/21 09:05 Consult Physician Routine Consulting Provider: Walker Laurent Consult Reason/Comments: Inpatient rehab Do you want consulting provider notified?: Yes Primary care physician: Stated None Hospital Course: Patient is a pleasant 56-year-old female with a history of Crohn's disease, myeloma and rectal cancer recently completed the radiation therapy on September 16 and completed chemotherapy in July came in with complains of generalized weakness and falls. Patient had symptoms of for dysuria because of which her primary care doctor ordered urine culture and urine analysis was started on Macrobid although urine culture did not show any bacteria after which I diabetic was discontinued. Patient had urine analysis here as well although there are some mild abnormalities did not really consistent with urinary tract infection and patient symptoms actually improved compared to before. Patient is still has some mild dysuria or burning sensation which is probably secondary to radiation therapy. Antibiotics are being discontinued at this time. Patient does have significant generalized weakness and some muscle atrophy patient did lose significant amount of weight and patient has loss of appetite. Physical therapy and occupational therapy evaluated the patient patient did well with them and patient doesn't want to go to rehab or inpatient rehab since patient did fairly well it was recommended that patient gets home care at home. Patient was also complaining of constipation patient had diarrhea shortly after radiation therapy and the patient was prescribed Imodium which led to constipation patient is presently constipated. PHYSICAL EXAMINATION: GENERAL: The patient is alert and oriented x3, not in any acute distress thin built HEENT: Pupils are round and equally reacting to light. EOMI. No scleral icterus. No conjunctival pallor. Normocephalic, atraumatic. No pharyngeal erythema. No thyromegaly. CARDIOVASCULAR: S1 and S2 present. No murmurs, rubs, or gallops. PULMONARY: Chest is clear to auscultation, no wheezing or crackles. ABDOMEN: Soft, nontender, nondistended, normoactive bowel sounds. No palpable o rganomegaly. MUSCULOSKELETAL: No joint swelling or deformity. EXTREMITIES: No cyanosis, clubbing, or pedal edema. NEUROLOGICAL: Gross neurological examination did not reveal any focal deficits. Generalized weakness and significant muscle atrophy SKIN: No rashes. Assessment and plan -Fall secondary to generalized weakness from radiation therapy chemotherapy and cancer and muscle atrophy patient will need physical therapy, patient is being discharged to subacute rehabilitation today. -Abnormal urine not consistent with UTI, lot require any antibiotics antibiotics were discontinued. - loss of appetite a little prescribed Marinol for this -Normocytic anemia secondary to chemotherapy -Depression -Dysuria secondary to radiation patient will be given prescription for provided him Patient will be discharged today Plan - Discharge Summary New Discharge Prescriptions: New Phenazopyridine [Pyridium] 100 mg PO TID #20 tab dronabinoL [Marinol] 2.5 mg PO AC-BID 10 Days #20 cap polyethylene glycoL 3350 [Miralax] 17 gm PO DAILY PRN #30 packet PRN Reason: Constipation Continue Escitalopram [Lexapro] 20 mg PO DAILY ALPRAZolam [Xanax] 1 mg PO BID PRN PRN Reason: Anxiety Ferrous Sulfate [Iron (65 MG Elemental)] 325 mg PO BID Cyanocobalamin (Vitamin B-12) [Vitamin B-12] 5,000 mcg PO DAILY HYDROcodone/APAP 5-325MG [[place] 5-325] 1 tab PO QID PRN PRN Reason: Pain Cholecalciferol [Vitamin D3 (25 Mcg = 1000 Iu)] 25 mcg PO DAILY Colestipol HCl 2 tab PO BID Silver Sulfadiazine [SSD 1% Cream] 1 applic TOPICAL TID Discharge Medication List ALPRAZolam [Xanax] 1 mg PO BID PRN 01/30/21 [History] Cholecalciferol [Vitamin D3 (25 Mcg = 1000 Iu)] 25 mcg PO DAILY 01/30/21 [History] Cyanocobalamin (Vitamin B-12) [Vitamin B-12] 5,000 mcg PO DAILY 01/30/21 [History] Escitalopram [Lexapro] 20 mg PO DAILY 01/30/21 [History] Ferrous Sulfate [Iron (65 MG Elemental)] 325 mg PO BID 01/30/21 [History] HYDROcodone/APAP 5-325MG [[place] 5-325] 1 tab PO QID PRN 01/30/21 [History] Colestipol HCl 2 tab PO BID 09/23/21 [History] Silver Sulfadiazine [SSD 1% Cream] 1 applic TOPICAL TID 09/23/21 [History] Phenazopyridine [Pyridium] 100 mg PO TID #20 tab 09/24/21 [Rx] dronabinoL [Marinol] 2.5 mg PO AC-BID 10 Days #20 cap 09/24/21 [Rx] polyethylene glycoL 3350 [Miralax] 17 gm PO DAILY PRN #30 packet 09/24/21 [Rx] Discharge Disposition: HOME WITH HOME HEALTH SERVICES
--- NOTE | 2021-09-24 15:01 | P.CONS ---
History of Present Illness - Reason for Consult Consult date: 09/24/21 weakness, pain after chemoRT Requesting physician: Thong Berry - Chief Complaint generalized weakness, anal pain - History of Present Illness The patient is a 55-year-old female with a history of Crohns disease status post subtotal colectomy in 1995. She now presents with a clinical stage IIIC (cT4b, cN2b, M0) adenocarcinoma of the rectum based on MRI staging. The patient underwent DESEAN by first undergoing FOLFOX chemotherapy, then recently undergoing concurrent chemoradiation with Xeloda finishing on September 16, 2021. She presents to the hospital with weakness, falls and pain in the anal region. The patient reports that near the completion of her chemoradiation, she had a couple of falls. She partially blames this on numbness and tingling she experiences in the hands and feet. However, the patient was also having very frequent diarrhea near the end of her treatment. She unfortunately became constipated from using Imodium, and this caused her increased pain in the perianal region. She reports no difficulty with headache or nausea. She does state when she presented to the ER, the perianal skin is still painful. It bothers her most when she is sitting on her bottom or moving her bowels. She states the pain completely resolved with 0.5 mg of Dilaudid, but now that she is back on [place] that area can still be uncomfortable. She was also having some discomfort with urination. She does feel the vaginal irritation she noticed near the end of the radiation is improving. After undergoing some hydration, the patient is feeling better today. She was able to ambulate with a walker up and down the [place]. Review of Systems Constitutional: Denies chills, Denies fever Eyes: denies blurred vision Ears, nose, mouth and throat: Denies headache Cardiovascular: Denies chest pain, Denies edema Respiratory: Denies cough, Denies dyspnea Gastrointestinal: Reports diarrhea, Denies abdominal pain, Denies nausea, Denies vomiting Genitourinary: Denies flank pain Integumentary: Reports rash (perianal skin) Neurological: Reports tingling (hands/feet), Denies headaches Psychiatric: Reports memory loss (Struggles to remember some things, blames "chemo-brain"), Denies anxiety Past Medical History Past Medical History: Cancer Additional Past Medical History / Comment(s): Crohn's disease, 2020 malignant me lanoma removed, rectal cancer, anemia History of Any Multi-Drug Resistant Organisms: None Reported Past Surgical History: Bowel Resection, Orthopedic Surgery, Tubal Ligation Additional Past Surgical History / Comment(s): sub total colectomy, colonoscopies, arthroscopy repair left knee Past Anesthesia/Blood Transfusion Reactions: Previous Problems w/ Anesthesia Additional Past Anesthesia/Blood Transfusion Reaction / Comm: wakes up during procedures, "seems to need alot for colonoscopies" Past Psychological History: Anxiety, Depression Smoking Status: Never smoker Past Alcohol Use History: None Reported Past Drug Use History: None Reported - Past Family History Mother Family Medical History: Cancer Additional Family Medical History / Comment(s): lung Father Family Medical History: Cancer Additional Family Medical History / Comment(s): prostate Sister(s) Family Medical History: Deep Vein Thrombosis (DVT), Pulmonary Embolus Medications and Allergies Home Medications Medication Instructions Recorded Confirmed Type ALPRAZolam [Xanax] 1 mg PO BID PRN 01/30/21 09/23/21 History Cholecalciferol [Vitamin D3 (25 25 mcg PO DAILY 01/30/21 09/23/21 History Mcg = 1000 Iu)] Cyanocobalamin (Vitamin B-12) 5,000 mcg PO DAILY 01/30/21 09/23/21 History [Vitamin B-12] Escitalopram [Lexapro] 20 mg PO DAILY 01/30/21 09/23/21 History Ferrous Sulfate [Iron (65 MG 325 mg PO BID 01/30/21 09/23/21 History Elemental)] HYDROcodone/APAP 5-325MG [[place] 1 tab PO QID PRN 01/30/21 09/23/21 History 5-325] Colestipol HCl 2 tab PO BID 09/23/21 09/23/21 History Silver Sulfadiazine [SSD 1% Cream] 1 applic TOPICAL TID 09/23/21 09/23/21 H istory Phenazopyridine [Pyridium] 100 mg PO TID #20 tab 09/24/21 Rx dronabinoL [Marinol] 2.5 mg PO AC-BID 10 Days #20 cap 09/24/21 Rx polyethylene glycoL 3350 [Miralax] 17 gm PO DAILY PRN #30 packet 09/24/21 Rx Allergies Allergy/AdvReac Type Severity Reaction Status Date / Time amoxicillin Allergy Rash/Hives Verified 09/23/21 20:56 clavulanic acid Allergy Rash/Hives Verified 09/23/21 20:56 [From Augmentin] Iodinated Contrast Media Allergy Rash/Hives/throat Verified 09/23/21 20:56 swelling Penicillins Allergy Rash/Hives Verified 09/23/21 20:56 Physical Exam Vitals: Vital Signs Temp Pulse Pulse Pulse Resp BP BP 09/24/21 12:25 98.2 F 93 17 117/72 09/24/21 04:04 98.1 F 87 16 117/56 09/24/21 03:46 97.7 F 65 18 104/56 09/24/21 00:00 16 09/23/21 22:41 98.9 F 87 18 149/74 09/23/21 21:21 98.3 F 84 16 118/60 09/23/21 18:18 97.8 F 110 H 20 130/74 Pulse Ox 09/24/21 12:25 99 09/24/21 04:04 98 09/24/21 03:46 94 L 09/24/21 00:00 09/23/21 22:41 100 09/23/21 21:21 98 09/23/21 18:18 99 Intake and Output 09/23/21 09/24/21 09/24/21 22:59 06:59 14:59 Intake Total 525 Balance 525 Intake: Intake, IV Titration 525 Amount Sodium Chloride 0.9% 1, 525 000 ml @ 75 mls/hr IV . [id number] [facility] Rx#:[id number] Other: Voiding Method Bedside Commode # Bowel Movements 1 # [place] 0 Weight 50.802 kg - Constitutional General appearance: no acute distress - EENT Eyes: EOMI, PERRLA ENT: hearing grossly normal - Neck Neck: no lymphadenopathy - Respiratory Respiratory: bilateral: CTA - Cardiovascular Rhythm: regular - Gastrointestinal General gastrointestinal: no tenderness - Integumentary Integumentary: rash (Exam of perianal skin reveals persistent desquamation extending superior to the canal, slightly improved from exam 1 week ago. ) - Musculoskeletal Musculoskeletal: generalized weakness - Psychiatric Psychiatric: A&O x's 3, appropriate affect Results CBC & Chem 7: 09/24/21 06:22 09/23/21 20:05 Labs: Abnormal Lab Results - Last 24 Hours (Table) 09/23/21 09/23/21 09/23/21 Range/Units 20:05 20:05 20:05 RBC 2.57 L (3.80-5.40) m/uL Hgb 9.4 L (11.4-16.0) gm/dL Hct 27.7 L (34.0-46.0) % MCV 107.9 H (80.0-100.0) fL MCH 36.5 H (25.0-35.0) pg RDW 19.9 H (11.5-15.5) % Plt Count (150-450) k/uL Lymphocytes # 0.2 L (1.0-4.8) k/uL Macrocytosis Marked A Sodium 135 L (137-145) mmol/L Glucose 101 H (74-99) mg/dL Ferritin (10.0-291.0) ng/mL Alkaline Phosphatase 194 H (38-126) U/L Albumin 3.2 L (3.5-5.0) g/dL Vitamin B12 (200.0-944.0) pg/mL Urine Appearance Cloudy H (Clear) Urine Protein Trace H (Negative) Urine Blood Small H (Negative) Ur Leukocyte Esterase Large H (Negative) Urine WBC 49 H (0-5) /hpf Urine Mucus Occasional H (None) /hpf 09/24/21 09/24/21 Range/Units 06:22 06:22 RBC 2.56 L (3.80-5.40) m/uL Hgb 9.3 L (11.4-16.0) gm/dL Hct 28.1 L (34.0-46.0) % MCV 109.8 H (80.0-100.0) fL MCH 36.4 H (25.0-35.0) pg RDW 19.7 H (11.5-15.5) % Plt Count 148 L (150-450) k/uL Lymphocytes # 0.2 L (1.0-4.8) k/uL Macrocytosis Marked A Sodium (137-145) mmol/L Glucose (74-99) mg/dL Ferritin 1344.0 H (10.0-291.0) ng/mL Alkaline Phosphatase (38-126) U/L Albumin (3.5-5.0) g/dL Vitamin B12 1717.0 H (200.0-944.0) pg/mL Urine Appearance (Clear) Urine Protein (Negative) Urine Blood (Negative) Ur Leukocyte Esterase (Negative) Urine WBC (0-5) /hpf Urine Mucus (None) /hpf Microbiology - Last 24 Hours (Table) 09/23/21 20:05 Urine Culture - Preliminary Urine,Clean Catch Assessment and Plan Assessment: The patient is a 55-year-old female with a history of Crohns disease status post subtotal colectomy in 1995. She now presents with a clinical stage IIIC (cT4b, cN2b, M0) adenocarcinoma of the rectum based on MRI staging. The patient underwent DESEAN by first undergoing FOLFOX chemotherapy, then recently undergoing concurrent chemoradiation with Xeloda finishing on September 16, 2021. She presents to the hospital with weakness, falls and pain in the anal region. Plan: 1. Weakness/falls: This is likely secondary to her prior treatments. The patient was likely somewhat dehydrated as she had not been eating or drinking as well, and had frequent loose bowels near the end of her radiation. She seems better clinically after being rehydrated. She also blames some neuropathy in her feet for her recent difficulty with balance. Physical therapy is evaluating the patient, and she is currently doing well with a walker. However, the patient did not require any ambulatory assistive devices prior to this hospital stay. 2. Stage IIIC Rectal cancer: The patient is approximately one week out from the completion of radiation. She will have surgical evaluation with Dr. Phillips in the near future. As noted above, the patient still has desquamation of the perianal skin. This is perhaps slightly improved compared to one week prior. Recommend continued Silvadene use for open areas, clean area well after bowel movements. Time with Patient: Greater than 30
[2021-09-24 16:02] LABS: Appearance,Urine Clear (Clear); Bilirubin,Urine 1+ (Negative); Blood,Urine Trace (Negative); Color,Urine Dark Brown; Glucose,Urine (UA) Negative (Negative); Ketones,Urine Negative (Negative); Leukocyte Esterase,Urine Small (Negative); Mucus,Urine Occasional /hpf; Nitrite,Urine Positive (Negative); PH, Urine 5.5 (5.0-8.0); Protein,Urine Trace (Negative); RBC,Urine 5 /hpf (0-5); Renal Epithelial Cells,Urine 1 /hpf (0); Specific Gravity,Urine 1.018 (1.001-1.035); WBC,Urine 22 /hpf (0-5)
[2021-09-24] MEDS: HYDROcodone/APAP 7.5-325MG 1 EACH TAB PO PRN (21:36)
[2021-09-25] MEDS: HYDROcodone/APAP 7.5-325MG 1 EACH TAB PO PRN ×2 (03:16→09:31)
[2021-09-25] MEDS: SODIUM CHLORIDE 0.9% 1,000 ML IV SCH ×2 (03:36→13:35)
[2021-09-25 05:11] VITALS: BP 112/86
[2021-09-25] MEDS: PHENAZOPYRIDINE 100 MG TAB PO SCH (09:33)
[2021-09-25] MEDS: FERROUS SULFATE 325 MG TAB PO SCH (09:33)
[2021-09-25] MEDS: ESCITALOPRAM 20 MG TAB PO SCH (09:33)
[2021-09-25] MEDS: CHOLECALCIFEROL 25 MCG (1000 IU) TABLET PO SCH (09:33)
[2021-09-25] MEDS: CYANOCOBALAMIN 500 MCG TAB PO SCH (09:33)
[2021-09-25] MEDS: SILVER sulfADIAZINE Cream 400 GM 1 APPLIC APPLIC TOPICAL SCH (09:34)
[2021-09-25] MEDS: NON FORMULARY DRUG (Colestipol Hcl [Colestipol Hcl] 1 GM Tablet) PO SCH (09:34)
--- NOTE | 2021-09-25 11:29 | P.DS ---
Providers Date of admission: 09/23/21 21:25 Attending physician: Manny Webber Consults: 09/23/21 21:02 Consult Physician Routine Consulting Provider: Macho Jimenez Consult Reason/Comments: rectal CA, multiple falls, weakness Do you want consulting provider notified?: Yes 09/24/21 08:47 Consult Physician Routine Consulting Provider: Luis Moraes Consult Reason/Comments: current radiation Do you want consulting provider notified?: Yes 09/24/21 09:05 Consult Physician Routine Consulting Provider: Walker Laurent Consult Reason/Comments: Inpatient rehab Do you want consulting provider notified?: Yes Primary care physician: Stated None Hospital Course: Final Diagnosis Fall secondary to generalized weakness from chemoradiation therapy as well as muscle atrophy Perianal desquamation and using Silvadene therapy Abnormal urine not consistent with UTI, urine culture negative Loss of appetite, on Marinol therapy Normocytic anemia secondary to chemotherapy Depression Dysuria secondary to radiation given a prescription for pyridium and discharge Hospital Course Patient is a pleasant 56-year-old female with a history of Crohn's disease, myeloma and rectal cancer recently completed the radiation therapy on September 16 and completed chemotherapy in July came in with complains of generalized weakness and falls. Patient had symptoms of for dysuria because of which her primary care doctor ordered urine culture and urine analysis was started on Macrobid although urine culture did not show any bacteria after which I diabetic was discontinued. Patient had urine analysis here as well although there are some mild abnormalities did not really consistent with urinary tract infection and patient symptoms actually improved compared to before. Patient is still has some mild dysuria or burning sensation which is probably secondary to radiation therapy. Antibiotics are being discontinued at this time. Patient does have significant generalized weakness and some muscle atrophy patient did lose significant amount of weight and patient has loss of appetite. Physical therapy and occupational therapy evaluated the patient patient did well with them and patient doesn't want to go to rehab or inpatient rehab since patient did fairly well it was recommended that patient gets home care at home. Patient was also complaining of constipation patient had diarrhea shortly after radiation therapy and the patient was prescribed Imodium which led to constipation patient is presently constipated. 09/25/2021 Patient today the bedside, continues with looser stools. Pain management for perianal pain as well as continue using the Silvadene therapy and cleansing after stools. Patient is understanding that she'll not be able to continue chemoradiation therapy while at rehab. She is agreeable to rehab and is understanding that she has increased her strength prior to be able to go home. Also marinol therapy for appetite stimulant. She denies any chest pain, shortness of breath, denies any nausea vomiting. Focal neurological exam is negative, lungs are clear S1-S2 auscultated. Afebrile, heart rate 72, blood pressure 112/80, 96% on room air. Please see medication reconciliation for list of current medications. Thank you for allowing us to participate in the care of this patient. Patient Condition at Discharge: Fair Plan - Discharge Summary New Discharge Prescriptions: New Phenazopyridine [Pyridium] 100 mg PO TID #20 tab dronabinoL [Marinol] 2.5 mg PO AC-BID 10 Days #20 cap polyethylene glycoL 3350 [Miralax] 17 gm PO DAILY PRN #30 packet PRN Reason: Constipation Continue Escitalopram [Lexapro] 20 mg PO DAILY Ferrous Sulfate [Iron (65 MG Elemental)] 325 mg PO BID Cyanocobalamin (Vitamin B-12) [Vitamin B-12] 5,000 mcg PO DAILY ALPRAZolam [Xanax] 1 mg PO BID PRN #4 tab PRN Reason: Anxiety Cholecalciferol [Vitamin D3 (25 Mcg = 1000 Iu)] 25 mcg PO DAILY Colestipol HCl 2 tab PO BID Silver Sulfadiazine [SSD 1% Cream] 1 applic TOPICAL TID HYDROcodone/APAP 5-325MG [[place] 5-325] 1 tab PO QID PRN #4 tab PRN Reason: Pain Discharge Medication List Cholecalciferol [Vitamin D3 (25 Mcg = 1000 Iu)] 25 mcg PO DAILY 01/30/21 [History] Cyanocobalamin (Vitamin B-12) [Vitamin B-12] 5,000 mcg PO DAILY 01/30/21 [History] Escitalopram [Lexapro] 20 mg PO DAILY 01/30/21 [History] Ferrous Sulfate [Iron (65 MG Elemental)] 325 mg PO BID 01/30/21 [History] Colestipol HCl 2 tab PO BID 09/23/21 [History] Silver Sulfadiazine [SSD 1% Cream] 1 applic TOPICAL TID 09/23/21 [History] ALPRAZolam [Xanax] 1 mg PO BID PRN #4 tab 09/24/21 [Rx] HYDROcodone/APAP 5-325MG [[place] 5-325] 1 tab PO QID PRN #4 tab 09/24/21 [Rx] Phenazopyridine [Pyridium] 100 mg PO TID #20 tab 09/24/21 [Rx] dronabinoL [Marinol] 2.5 mg PO AC-BID 10 Days #20 cap 09/24/21 [Rx] polyethylene glycoL 3350 [Miralax] 17 gm PO DAILY PRN #30 packet 09/24/21 [Rx] Follow up Appointment(s)/Referral(s): Macho Jimenez MD [STAFF PHYSICIAN] - 1 Week Christiano Solares MD [STAFF PHYSICIAN] - 1 Week Luis Moraes MD [STAFF PHYSICIAN] - 1 Week Discharge Disposition: TRANSFER TO SNF/ECF
--- NOTE | 2021-09-25 13:57 | P.PN ---
Subjective Progress Note Date: 09/25/21 Principal diagnosis: weakness and dehydration IPR assessment recommended PT/OT. Patient is still very weak and continues to have diarrhea. C-diff negative, inflammation and occult blood positive. Urine culture without growth thus far. Objective - Vital Signs Vital signs: Vital Signs Temp 97.6 F 09/25/21 05:00 Pulse 72 09/25/21 05:00 Resp 20 09/25/21 05:00 BP 112/86 09/25/21 05:00 Pulse Ox 96 09/25/21 05:00 Intake & Output 09/24/21 09/25/21 09/25/21 18:59 06:59 18:59 Intake Total 900 1200 Balance 900 1200 Intake: Intake, IV Titration 900 Amount Sodium Chloride 0.9% 1, 900 000 ml @ 75 mls/hr IV . [id number] RAISSA Rx#:[id number] Oral 1200 Other: Voiding Method Bedside Commode Bedside Commode Bedside Commode # Voids 4 # Bowel Movements 2 - Exam Weak and thin Buttock open area from top of buttock to vaginal opening - Constitutional General appearance: cooperative - EENT Eyes: EOMI ENT: NA/AT - Neck Neck: normal ROM - Respiratory Respiratory: bilateral: CTA - Cardiovascular Rhythm: regular - Gastrointestinal General gastrointestinal: soft - Integumentary Integumentary: pale - Neurologic Neurologic: CNII-XII intact - Musculoskeletal Musculoskeletal: generalized weakness - Labs CBC & Chem 7: 09/24/21 06:22 09/23/21 20:05 Labs: Abnormal Lab Results - Last 24 Hours (Table) 09/24/21 09/24/21 09/24/21 Range/Units 14:07 14:07 15:40 Urine Protein Trace H (Negative) Urine Blood Trace H (Negative) Urine Nitrite Positive H (Negative) Urine Bilirubin 1+ H (Negative) Ur Leukocyte Esterase Small H (Negative) Urine WBC 22 H (0-5) /hpf Urine Mucus Occasional H (None) /hpf Stool Occult Blood Positive H (Negative) Stool Lactoferrin POSITIVE A (NEGATIVE) Microbiology - Last 24 Hours (Table) 09/24/21 01:30 Blood Culture - Preliminary Blood No Growth after 24 hours 09/24/21 14:07 Stool Culture - Preliminary Stool 09/23/21 23:33 Blood Culture - Preliminary Blood No Growth after 24 hours Assessment and Plan (1) Multiple falls Narrative/Plan: Likely secondary to Hypotensive episodes, persistent diarrhea, dehydyration, and anemia IPR assessed patient but felt she did not need IPR and home ptot was adequate Current Visit: Yes Status: Acute Code(s): R29.6 - REPEATED FALLS SNOMED Code(s): 507167066 (2) Rectal cancer Narrative/Plan: Status post FOLFOOX, now receiving concurrent radiation and Xeloda. Consult placed for Dr. Moraes She has struggled with recurrent Dehydration and anemia during this treatment COntinue on colospid Imodium ok as c diff negative Current Visit: Yes Status: Acute Priority: High Code(s): C20 - MALIGNANT NEOPLASM OF RECTUM SNOMED Code(s): 334320876 (3) Weakness Current Visit: Yes Status: Acute Code(s): R53.1 - WEAKNESS SNOMED Code(s): 19337507 Plan: keep area on behind clean and dry Use silvadene Plan per primary team home today with PT/OT, still very weak. Will prescribe lomotil Continue colospid and follow-up next week in office for hydration and repeat labs
[2021-09-25 14:48] VITALS: PULSE 88; RESP 18; TEMP 98.1
== END 2021-09-25 15:10 ==
LOC: EC 17:51 → 5NMEDONC 21:25
PROVIDERS: ADMIT Hospitalist; ATTEND Hospitalist
DX: C20 Malignant neoplasm of rectum (principal); D64.81 Anemia due to antineoplastic chemotherapy; E86.0 Dehydration; R29.6 Repeated falls; T45.1X5A Adverse effect of antineoplastic and immunosuppressive drugs, initial encounter; N89.8 Other specified noninflammatory disorders of vagina; M62.50 Muscle wasting and atrophy, not elsewhere classified, unspecified site; R63.0 Anorexia; Z68.1 Body mass index [BMI] 19.9 or less, adult; K50.911 Crohn's disease, unspecified, with rectal bleeding; F41.9 Anxiety disorder, unspecified; Z20.822 Contact with and (suspected) exposure to COVID-19; D70.9 Neutropenia, unspecified; K59.00 Constipation, unspecified; F32.A Depression, unspecified; R30.0 Dysuria; I95.9 Hypotension, unspecified; R20.2 Paresthesia of skin; R82.90 Unspecified abnormal findings in urine; R20.0 Anesthesia of skin; Z79.899 Other long term (current) drug therapy; Z88.0 Allergy status to penicillin; Z91.048 Other nonmedicinal substance allergy status; Z88.1 Allergy status to other antibiotic agents; Z90.49 Acquired absence of other specified parts of digestive tract; Z85.820 Personal history of malignant melanoma of skin; Z92.3 Personal history of irradiation; Z92.21 Personal history of antineoplastic chemotherapy; Z85.048 Personal history of other malignant neoplasm of rectum, rectosigmoid junction, and anus; Z80.1 Family history of malignant neoplasm of trachea, bronchus and lung; Z80.42 Family history of malignant neoplasm of prostate; Z82.49 Family history of ischemic heart disease and other diseases of the circulatory system
CPT/HCPCS: 99285; 96376 ×2; 96366; 96375; 96361 ×3; 96365; 36415; 93005; 97162; 97166; 83921; 80053; 82607; 82728; 82746; 83540; 83550; 83605; 83735; 85025 ×2; 85730; 82272; 81001 ×2; 87040 ×2; 87324; 87086; 87045; 83630; 87077; 87186; 87046; 87635; 71046; G0378 ×3; J0696 ×2; J1642; J1170

== ENCOUNTER → 2022-04-20 | Outpatient (CLI) | payer MEDICARE ==
--- NOTE | 2022-04-20 11:39 | MM ---
Reason for Exam: Screening (asymptomatic). Last mammogram was performed 2 year(s) and 1 month(s) ago. Patient History: Menarche at age 11. Patient has no children. Postmenopausal. Other cancer, age 35. Currently using Estrogen, for 4 months. Currently using Progesterone, for 4 months. Patient used Hormonal Contraceptives for 4 years. Paternal cousin had breast cancer, age 45. Risk Values: Polly 5 year model risk: 1.5%. NCI Lifetime model risk: 8.5%. Prior Study Comparison: 10/09/2015 Bilateral Screening Mammogram, [facility]. 10/13/2016 Bilateral Screening Mammogram, [facility] 11/03/2017 Bilateral Screening Mammogram, [facility]. 09/29/2018 Bilateral Screening Mammogram, [facility]. 03/04/2020 Bilateral Screening Mammogram, [facility]. Tissue Density: The breast tissue is heterogeneously dense. This may lower the sensitivity of mammography. Findings: Analyzed By CAD. There is no suspicious group of microcalcifications or new suspicious mass in either breast. Overall Assessment: Negative, BI-RAD 1 Management: Screening Mammogram of both breasts in 1 year. A clinical breast exam by your physician is recommended on an annual basis and results should be correlated with mammographic findings. Electronically signed and approved by: Yovany Bedoya DO
--- NOTE | 2022-04-20 11:56 | BD ---
EXAMINATION TYPE: Axial Bone Density DATE OF EXAM: 04/20/2022 COMPARISON: NONE CLINICAL HISTORY: 56 years year old Female. ICD-10 CODE: N95.1 POSTMENOPAUSAL, M85.88 DISORDER OF [place] NE DENSITY Height: 66 Weight: 166 FRAX RISK QUESTIONS: Alcohol (3 or more units per day): NO Family History (Parent hip fracture): NO Glucocorticoids (More than 3mos): NO History of Fracture in Adulthood: NO Secondary Osteoporosis: 1. Type 1 Diabetes: NO 2. Hyperthyroidism: NO 3. Menopause before 45: NO 4. Malnutrition: NO 5. Chronic liver disease: NO Rheumatoid Arthritis: NO Current Tobacco Use: NO RISK FACTORS HISTORY OF: Hip Fracture (Right/Left): NO Spine Fracture: NO History of Wrist Fracture: NO Surgery to Spine/Hip(right/left)/Wrist (right/left): NO Family History of Osteoporosis: NO Active: YES Diet low in dairy products/other sources of calcium: YES Postmenopausal woman: YES Take estrogen and/or progesterone medications: NO Lost more than 2 inches in height since high school: NO Frequent falls: NO Poor Health: RECENT RECTAL CA. WITH CHEMO AND RADIATION Hyperparathyroidism: NO Adrenal Insufficiency: NO MEDICATIONS: Prednisone or other steroids: PREVIOUSLY BUT NONE AT THIS TIME Thyroid Medications: NO Osteoporosis Medications: NO Additional Medications: ALPRAZOLAM, FERRIOUS SULFATE, VIT D, FISH OIL, Additional History: CRONES DISEASE, RECTAL CA. EXAM MEASUREMENTS: Bone mineral densitometry was performed using the [employer] System. Bone mineral density as measured about the Lumbar spine is: ----- L1-L4(G/cm2): 1.079 T Score Values are as follows: ----- L1: -0.7 ----- L2: -1.0 ----- L3: -0.8 ----- L4: -1.0 ----- L1-L4: -0.8 Bone mineral density has: DECREASED 9.6 % since study of: 10/13/2016 Bone mineral density about the R hip (g/cm2): 0.777 Bone mineral density about the L hip (g/cm2): 0.752 T Score values are as follows: -----R Neck: -1.9 -----L Neck: -2.1 -----R Total: -2.5 -----L Total: -2.6 Bone mineral density has: DECREASED 20.9 % since study of: 10/13/2016 FRAX%s: The graph provided illustrates a 7.6% chance for a major osteoporotic fx and a 1.1% chance fo r the hips probability for fx in 10 years time. IMPRESSION: Osteopenia (T Score between -2.5 and -1). There is slightly increased risk of fracture and the patient may be considered for treatment. Re-Screen 2-5 years. NOTE: T-SCORE=SD OF THE YOUNG ADULT MEAN.
== END | disposition home or self-care (01) ==
LOC: RADMAMWWP 10:43
PROVIDERS: ATTEND Obstetrics & Gynecology
DX: Z12.31 Encounter for screening mammogram for malignant neoplasm of breast (principal); Z80.3 Family history of malignant neoplasm of breast; M85.88 Other specified disorders of bone density and structure, other site; Z78.0 Asymptomatic menopausal state
CPT/HCPCS: 77063; 77067; 77080

== ENCOUNTER → 2022-05-15 | Outpatient (CLI) | payer MEDICARE ==
--- NOTE | 2022-05-17 23:06 | PE ---
EXAMINATION TYPE: PET CT fusion skull to thigh DATE OF EXAM: 05/15/2022 CLINICAL INDICATION:Female, 56 years old with history of C20 Rectal CA; TECHNIQUE: Following the intravenous administration of 10.3 mCi of F-18 FDG, whole body images are performed from the skull base to the midthigh. Images are reviewed on the computer in the coronal, a xial, and sagittal planes. Reconstructed rotating images are created on independent workstation and reviewed on the computer. A non-contrast CT is performed in conjunction with the PET scan. Glucose level 82 mg/dL COMPARISON: CT 04/13/2022, 03/27/2021, PET/CT 02/14/2021, FINDINGS: Mediastinal SUV mean is 1.3. Hepatic parenchyma SUV mean is 1.9. SKULL BASE AND NECK: No suspicious FDG activity. CHEST, MEDIASTINUM, AND HILAR REGION: No suspicious FDG activity. ABDOMEN AND PELVIS: No suspicious FDG activity. Mild peristomal FDG activity at the skin surface max SUV 2.2 . Left pelvic cyst and postsurgical momo nges within the pelvis without suspicious FDG activity to suggest recurrence.. OSSEOUS STRUCTURES: No suspicious FDG activity. OTHER CT: Right chest wall [id number] with distal tip in the superior vena cava. Scattered streaky atelectasis/scarring in the lung apex on the right and bases bilaterally. Postsurgical changes to t he bowel and anterior abdominal wall with ostomy. IMPRESSION: 1. Significant postsurgical changes in the pelvis which are new from prior PET/CT 02/14/2021. Lack of IV contrast. Difficult to delineate structures. No abnormal FDG uptake at this time. Given lack of i ncreased FDG activity findings likely represent postsurgical changes. Attention on follow-up imaging. 2. Mild FDG activity of the bowel near the surface of the stoma likely post and flexion/inflammatory process.
== END | disposition home or self-care (01) ==
LOC: RADPETMAIN 14:18
PROVIDERS: ATTEND Internal Medicine Hematology & Oncology
DX: C20 Malignant neoplasm of rectum (principal)
CPT/HCPCS: 78815; A9552

== ENCOUNTER 2022-06-19 07:11 | Day surgery (SDC) | payer MEDICARE ==
[2022-06-17 16:36] VITALS: BMI 18.6
[~2022-06-19 07:11] MED LIST changes: +LACTATED RINGERS 1,000 ML IV SCH; +LIDOCAINE 1% (10MG/ML) FOR IV START INTRADERMA PRN; +MIDAZOLAM 2 MG/2 ML VIAL IV PRN; -Pre Op ABX Message 1 EACH MISC MISCELLANE ONE
[2022-06-19 07:30] VITALS: TEMP 97.8
--- NOTE | 2022-06-19 08:20 | P.GSHP ---
History of Present Illness H&P Date: 06/19/22 Chief Complaint: Rectal cancer 56-year-old female here today for Port-A-Cath removal. Patient with history of rectal cancer. She underwent chemotherapy. She does not use the catheter for the last year or so. No issues with the port. Past Medical History Past Medical History: Cancer Additional Past Medical History / Comment(s): Crohn's disease, 2020 malignant melanoma removed, rectal cancer, anemia, HAS A ILEOSTOMY History of Any Multi-Drug Resistant Organisms: None Reported Past Surgical History: Bowel Resection, Orthopedic Surgery, Tubal Ligation Additional Past Surgical History / Comment(s): sub total colectomy, colonoscopies, arthroscopy repair left knee, RECTAL SURGERY -APR RESCECTION WITH ILEOSTORY WITH STOMA. Past Anesthesia/Blood Transfusion Reactions: Previous Problems w/ Anesthesia Additional Past Anesthesia/Blood Transfusion Reaction / Comment(s): wakes up d uring procedures, "seems to need alot for colonoscopies" PER PATIENT Smoking Status: Never smoker - Past Family History Mother Family Medical History: Cancer Additional Family Medical History / Comment(s): lung Father Family Medical History: Cancer Additional Family Medical History / Comment(s): prostate Sister(s) Family Medical History: Deep Vein Thrombosis (DVT), Pulmonary Embolus Medications and Allergies Home Medications Medication Instructions Recorded Confirmed Type Cholecalciferol [Vitamin D3 (25 25 mcg PO DAILY 01/30/21 06/19/22 History Mcg = 1000 Iu)] Cyanocobalamin (Vitamin B-12) 5,000 mcg PO DAILY 01/30/21 06/19/22 History [Vitamin B-12] Escitalopram [Lexapro] 20 mg PO DAILY 01/30/21 06/19/22 History Ferrous Sulfate [Iron (65 MG 325 mg PO DAILY 01/30/21 06/19/22 History Elemental)] Colestipol HCl 1 gm PO DAILY 09/23/21 06/19/22 History ALPRAZolam [Xanax] 1 mg PO BID PRN #4 tab 09/24/21 06/19/22 Rx HYDROcodone/APAP 5-325MG [[place] 1 tab PO QID PRN #4 tab 09/24/21 06/19/22 Rx 5-325] Gabapentin [Neurontin] 100 mg PO TID 06/17/22 06/19/22 History Loperamide [Imodium] 2 mg PO DAILY 06/17/22 06/19/22 History Allergies Allergy/AdvReac Type Severity Reaction Status Date / Time amoxicillin Allergy Rash/Hives Verified 06/19/22 07:20 clavulanic acid Allergy Rash/Hives Verified 06/19/22 07:20 [From Augmentin] Iodinated Contrast Media Allergy Rash/Hives/throat Verified 06/19/22 07:20 swelling Penicillins Allergy Rash/Hives Verified 06/19/22 07:20 Surgical - Exam Vital Signs Temp Pulse Resp BP Pulse Ox 97.8 F 66 18 107/62 98 06/19/22 07:27 06/19/22 07:27 06/19/22 07:27 06/19/22 07:27 06/19/22 07:27 Physical exam: General: Well-developed, well-nourished HEENT: Normocephalic, sclerae nonicteric Abdomen: Nontender, nondistended Extremities: No edema Neuro: Alert and oriented Assessment and Plan (1) Rectal cancer Narrative/Plan: 56-year-old female with rectal cancer. We'll proceed with Port-A-Cath removal at this time. Current Visit: No Status: Acute Priority: High Code(s): C20 - MALIGNANT NEOPLASM OF RECTUM SNOMED Code(s): 564075142
[2022-06-19] MEDS ORDERED: MIDAZOLAM 2 MG/2 ML VIAL ONE (08:25)
[2022-06-19] MEDS ORDERED: PROPOFOL 10 MG/ML 20 ML VIAL IV ONE (08:25)
[2022-06-19] MEDS ORDERED: fentaNYL (PF) 50 MCG/ML 2 ML AMP ONE (08:25)
[2022-06-19] MEDS ORDERED: LIDOCAINE 1% INJ 10MG/ML (10 ML MDV) SQ ONE (08:30)
[2022-06-19 09:06] VITALS: RESP 16
[2022-06-19] MEDS ORDERED: NALOXONE 0.4 MG/ML 1 ML VIAL IV PRN (09:08)
--- NOTE | 2022-06-19 09:09 | P.OP ---
Date of Procedure: 06/19/22 Procedure(s) Performed: PREOPERATIVE DIAGNOSIS: Rectal cancer POSTOPERATIVE DIAGNOSIS: Same PROCEDURE: Port-A-Cath removal SURGEON: Vera EBL: Minimal ANESTHESIA: Sedation COMPLICATIONS: None OPERATIVE PROCEDURE: Patient was placed in the supine position. The patient was sedated per anesthesia that time. The chest was prepped and draped in the usual sterile fashion. The skin was localized with Marcaine solution. The previous incision was re-incised using a scalpel. The port was easily excised using accommodation of blunt dissection sharp dissection and electrocautery. The subcutaneous tissues were reapproximated using 3-0 Vicryl sutures. The skin was reapproximated using 4-0 Monocryl sutures. Skin glue was then applied. DISPOSITION: Stable to recovery room
[2022-06-19 09:11] VITALS: PULSE 60
[2022-06-19 09:37] VITALS: BP 129/68
== END 2022-06-19 09:59 | disposition home or self-care (01) ==
LOC: OR 07:11
PROVIDERS: ATTEND Surgery
DX: C20 Malignant neoplasm of rectum (principal); K50.90 Crohn's disease, unspecified, without complications; D64.9 Anemia, unspecified; Z85.820 Personal history of malignant melanoma of skin; Z98.84 Bariatric surgery status; Z98.890 Other specified postprocedural states; Z98.51 Tubal ligation status; Z80.42 Family history of malignant neoplasm of prostate; Z83.2 Family history of diseases of the blood and blood-forming organs and certain disorders involving the immune mechanism; Z79.899 Other long term (current) drug therapy; Z88.0 Allergy status to penicillin; Z91.041 Radiographic dye allergy status
CPT/HCPCS: 36590; J2250; J1100; J0690; J2405; J3010; J2001; J2704; J1644

== ENCOUNTER → 2022-07-03 | Outpatient (CLI) | payer MEDICARE ==
[2022-07-03 17:47] LABS: HCT 39.4 % (37.2-46.3); HGB 13.1 g/dL (12.0-15.0); MCH 30.5 pg (27.0-32.0); MCHC 33.2 g/dL (32.0-37.0); MCV 91.8 fL (80.0-97.0); Mean Platelet Volume 9.5 fL (9.5-12.2); NRBC Per 100 WBC 0 /100 WBCS (0.0-0.0); Platelet Count 100 X 10*3/uL (140-440); RBC 4.29 X 10*6/uL (4.10-5.20); RDW 13.4 % (11.5-14.5); WBC 4.18 X 10*3/uL (4.50-10.00)
[2022-07-03 18:00] LABS: Erythrocyte Sedimentation Rate 4 mm/Hr (0-30)
[2022-07-03 19:42] LABS: ALT 68 U/L (8-44); AST 51 U/L (13-35); African American GFR (CKD) 81.5 (60.0-200.0); Albumin 4.4 g/dL (3.8-4.9); Albumin/Globulin Ratio 1.84 (1.60-3.17); Alkaline Phosphatase 334 U/L (41-126); BUN/Creat Ratio 17.18 Ratio (12.00-20.00); Blood Urea Nitrogen 15.5 mg/dL (9.0-27.0); C Reactive Protein <0.30 mg/dL (0.00-0.80); Calcium 9.7 mg/dL (8.7-10.3); Carbon Dioxide 25.6 mmol/L (20.0-27.5); Chloride 103 mmol/L (96-109); Globulin 2.4 g/dL (1.6-3.3); Glucose 87 mg/dL (70-110); Non-African American GFR(CKD) 70.3 (60.0-200.0); Potassium 4.1 mmol/L (3.5-5.5); Sodium 142 mmol/L (135-145); Total Protein 6.7 g/dL (6.2-8.2)
== END | disposition home or self-care (01) ==
LOC: LABWHC1 13:36
PROVIDERS: ATTEND Internal Medicine Gastroenterology
DX: K50.918 Crohn's disease, unspecified, with other complication (principal); R94.5 Abnormal results of liver function studies
CPT/HCPCS: 36415; 80053; 83993; 85027; 85652; 86140; 86480

== ENCOUNTER → 2022-07-29 | Outpatient (CLI) | payer MEDICARE | END | disposition home or self-care (01) | LOC: LABWHC1 09:54 | PROVIDERS: ATTEND Internal Medicine Gastroenterology | DX: R94.5 Abnormal results of liver function studies (principal) | CPT/HCPCS: 36415 ==

== ENCOUNTER → 2023-03-26 | Outpatient (CLI) | payer MEDICARE ==
[2023-03-26 16:08] LABS: HCT 44.3 % (37.2-46.3); HGB 15.1 d/dL (12.0-15.0); MCH 31.9 pg (27.0-32.0); MCHC 34.1 d/dL (32.0-37.0); MCV 93.5 FL (80.0-97.0); Mean Platelet Volume 9.8 FL (9.5-12.2); NRBC Per 100 WBC 0 X 10*3/uL (0.00-0.01); Platelet Count 103 X 10*3/uL (140-440); RBC 4.74 X 10*6/uL (4.10-5.20); RDW 14.1 % (11.5-14.5); WBC 4.05 X 10*3/uL (4.50-10.00)
[2023-03-26 17:03] LABS: INR <0.93 sec (0.93-1.11); Prothrombin Time 10.4 sec (9.9-11.9)
[2023-03-26 17:49] LABS: % Iron Saturation 32.28 (12.00-45.00); ALT 55 U/L (8-44); AST 50 U/L (13-35); Albumin 4.7 d/dL (3.8-4.9); Albumin/Globulin Ratio 1.88 Ratio (1.60-3.17); Alkaline Phosphatase 211 U/L (41-126); BUN/Creat Ratio 12.33 Ratio (12.00-20.00); Blood Urea Nitrogen 11.1 mg/dL (9.0-27.0); Carbon Dioxide 27.6 mmol/L (21.6-31.8); Chloride 100 mmol/L (96-109); Globulin 2.5 d/dL (1.6-3.3); Glucose 94 mg/dL (70-110); Iron 112 UG/DL (50-170); Potassium 3.7 mmol/L (3.5-5.5); Sodium 141 mmol/L (135-145); Total Bilirubin 0.7 mg/dL (0.3-1.2); Total Iron Binding Capacity 347 UG/DL (228-460); Total Protein 7.2 d/dL (6.2-8.2)
[2023-03-26 18:29] LABS: Albumin 4.8 d/dL (3.8-4.9); Protein, Total 7.3 d/dL (6.2-8.2)
[2023-03-26 18:30] LABS: Ceruloplasmin 28.2 mg/dL (20.0-60.0)
[2023-03-26 19:41] LABS: Gliadin AB IgA, Deaminated Negative (Negative); Gliadin AB IgA, Unit 0.7 U/mL; Gliadin AB IgG, Deaminated Negative (Negative); Gliadin AB IgG, Unit <0.4 U/mL
== END | disposition home or self-care (01) ==
LOC: LABWHC1 11:09
PROVIDERS: ATTEND Surgery
DX: C20 Malignant neoplasm of rectum (principal); G99.0 Autonomic neuropathy in diseases classified elsewhere; G62.0 Drug-induced polyneuropathy; M85.9 Disorder of bone density and structure, unspecified; R94.5 Abnormal results of liver function studies
CPT/HCPCS: 36415; 80053; 82103; 82390; 82728; 83516; 83540; 83550; 84165; 85027; 85610; 86038

== ENCOUNTER → 2023-04-27 | Outpatient (CLI) | payer MEDICARE ==
--- NOTE | 2023-04-28 12:56 | MM ---
Reason for Exam: Screening (asymptomatic). Last mammogram was performed 1 year(s) and 1 month(s) ago. Patient History: Menarche at age 11. Patient has no children. Postmenopausal. Other cancer, age 35. Currently using Estrogen, for 4 months. Currently using Progesterone, for 4 months. Patient used Hormonal Contraceptives for 4 years. Paternal cousin had breast cancer, age 45. Risk Values: Polly 5 year model risk: 1.5%. NCI Lifetime model risk: 8.3%. Prior Study Comparison: 09/29/2018 Bilateral Screening Mammogram, [facility]. 03/04/2020 Bilateral Screening Mammogram, [facility]. 04/20/2022 Bilateral MG 3D screening mammo w/cad, [facility]. Tissue Density: The breast tissue is heterogeneously dense. This may lower the sensitivity of mammography. Findings: Analyzed By CAD. Pattern is symmetrical and stable. No significant interval change is evident. No suspicious groups of microcalcifications, spiculated or lobular masses, architectural distortion or other secondary signs of malignancy are mammographically apparent. Overall Assessment: Benign, BI-RAD 2 Management: Screening Mammogram of both breasts in 1 year. A negative mammogram report should not preclude additional follow up of suspicious palpable abnormalities. Patient should continue monthly self breast exam. A clinical breast exam by your physician is recommended on an annual basis and results should be correlated with mammographic findings. Electronically signed and approved by: Nolberto Rogers D.O. Radiologis
== END | disposition home or self-care (01) ==
LOC: RADMAMWWP 12:27
PROVIDERS: ATTEND Obstetrics & Gynecology
DX: Z12.31 Encounter for screening mammogram for malignant neoplasm of breast (principal); Z78.0 Asymptomatic menopausal state; Z80.3 Family history of malignant neoplasm of breast
CPT/HCPCS: 77063; 77067

== ENCOUNTER → 2023-08-02 | Outpatient (CLI) | payer MEDICARE ==
[2023-08-02 18:53] LABS: HCT 41.8 % (37.2-46.3); HGB 14.2 g/dL (12.0-15.0); MCH 32.1 pg (27.0-32.0); MCV 94.4 FL (80.0-97.0); Mean Platelet Volume 9.6 FL (9.5-12.2); NRBC Per 100 WBC 0 X 10*3/uL (0.00-0.01); Platelet Count 122 X 10*3/uL (140-440); RBC 4.43 X 10*6/uL (4.10-5.20); RDW 14.1 % (11.5-14.5); WBC 3.65 X 10*3/uL (4.50-10.00)
[2023-08-02 19:00] LABS: ALT 24 U/L (8-44); AST 29 U/L (13-35); Albumin 4.7 g/dL (3.8-4.9); Albumin/Globulin Ratio 2.04 Ratio (1.60-3.17); Alkaline Phosphatase 119 U/L (41-126); Blood Urea Nitrogen 13.5 mg/dL (9.0-27.0); Calcium 10.1 mg/dL (8.7-10.3); Carbon Dioxide 26.4 mmol/L (21.6-31.8); Chloride 100 mmol/L (96-109); Globulin 2.3 g/dL (1.6-3.3); Glucose 89 mg/dL (70-110); Potassium 3.6 mmol/L (3.5-5.5); Sodium 139 mmol/L (135-145)
== END | disposition home or self-care (01) ==
LOC: LABWHC1 10:41
PROVIDERS: ATTEND Internal Medicine Gastroenterology
DX: R94.5 Abnormal results of liver function studies (principal)
CPT/HCPCS: 36415; 80053; 85027

== ENCOUNTER → 2024-04-07 | Outpatient (CLI) | payer MEDICARE ==
--- NOTE | 2024-05-09 16:29 | US ---
Site ID [facility] Patient More Herzog ID [id number] Age/Gender: 58Y, O Order # N/A Procedure US abdomen complete Date 04/07/2024 8:46:00 AM EXAMINATION TYPE: US abdomen complete DATE OF EXAM: 04/16/2024 COMPARISON: None, please note PACS Production downtime occurred during the radiologist interpretation of these images with limited priors/reports. CLINICAL INDICATION: 58 year old with history of hepatic fibrosis. TECHNIQUE: Multiple sonographic images of the abdomen are obtained. 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 No gallstones or wall thicken ing. Evidence for sonographic Marquez's sign: No CBD: wnl Spleen: Enlarged with vague hyperechoic areas scattered throughout. Right Kidney: No hydronephrosis. Small 0.3 cm cortical calcification. Left Kidney: wnl Upper IVC: wnl Abd Aorta: wnl The liver is homogenous. The intrahepatic portion of the IVC and proximal abdominal aorta are within normal limits. There is no evidence of cholelithiasis. There are 2 small polyps identified measurin g up to 3 mm. Common bile duct is unremarkable. The visualized portions of the pancreas are homogeno us. The spleen is enlarged with vague small hyperechoic regions. Kidneys are symmetric and free of hydronephrosis. Small 0.3 similar cortical right renal calcification. IMPRESSION: 1. No ultrasound evidence of acute process. 2. Splenomegaly with vague hyperechoic regions which may represent calcified granulomas. 3. Gallbladder demonstrates 2 small 0.3 cm polyps. Consider follow-up ultrasound in 6 months to asses s for stability.
== END | disposition home or self-care (01) ==
LOC: RADUSWWP 10:26
PROVIDERS: ATTEND Internal Medicine Gastroenterology
DX: K74.02 Hepatic fibrosis, advanced fibrosis (principal); R16.1 Splenomegaly, not elsewhere classified; K82.4 Cholesterolosis of gallbladder
CPT/HCPCS: 76700

== ENCOUNTER → 2024-04-28 | Outpatient (CLI) | payer MEDICARE ==
--- NOTE | 2024-04-28 19:21 | BD ---
EXAMINATION TYPE: Axial Bone Density DATE OF EXAM: 04/28/2024 CLINICAL HISTORY: 58 years old Female. ICD-10 CODE: N95.1 MENOPAUSAL STATE Height: 65.7in Weight: 113lb FRAX RISK QUESTIONS: Secondary Osteoporosis: RISK FACTORS HISTORY OF: MEDICATIONS: EXAM MEASUREMENTS: Bone mineral densitometry was performed using the [employer] System. Bone mineral density as measured about the Lumbar spine is: ----- L1-L4(G/cm2): 1.098 T Score Values are as follows: ----- L1: -0.4 ----- L2: -1.1 ----- L3: -0.8 ----- L4: -0.6 ----- L1-L4: -0.7 Z Score Values are as follows: ----- L1: 1.3 ----- L2: 0.6 ----- L3: 0.9 ----- L4: 1.1 ----- L1-L4: 1.0 Bone mineral density has: Increased 1.8% since study of: 04-20-22 Bone mineral density about the R hip (g/cm2): 0.713 Bone mineral density about the L hip (g/cm2): 0.710 T Score values are as follows: -----R Neck: -1.9 -----L Neck: -2.0 -----R Total: -2.3 -----L Total: -2.4 Z Score values are as follows: -----R Neck: -0.4 -----L Neck: -0.4 -----R Total: -1.1 -----L Total: -1.1 Bone mineral density has: Increased 3.8% since study of: 04-20-22 FRAX%s: The graph provided illustrates a 8.2% chance for a major osteoporotic fx and a 1.2% chance fo r the hips probability for fx in 10 years time. IMPRESSION: Osteopenia (T Score between -2.5 and -1). Note that measurements are bordering on osteoporosis in the hips. There is slightly increased risk of fracture and the patient may be considered for treatment. Re-Screen 2-5 years. NOTE: T-SCORE=SD OF THE YOUNG ADULT MEAN.
--- NOTE | 2024-04-30 11:18 | MM ---
Reason for Exam: Screening (asymptomatic). Last screening mammogram was performed 12 month(s) ago. Patient History: Menarche at age 11. Patient has no children. Postmenopausal. Other cancer, age 35. Estrogen for 4 years, 4 months, from age 50 until age 54. Progesterone for 4 years, 4 months, from age 50 until age 54. Patient used Hormonal Contraceptives for 4 years. Paternal cousin had breast cancer, age 45. Risk Values: Polly 5 year model risk: 1.6%. NCI Lifetime model risk: 8.1%. Prior Study Comparison: 03/04/2020 Bilateral Screening Mammogram, [facility]. 04/20/2022 Bilateral MG 3D screening mammo w/cad, [facility]. 04/27/2023 Bilateral MG 3D screening mammo w/cad, [facility]. Tissue Density: There are scattered areas of fibroglandular density. Findings: Analyzed By CAD. Right breast: There is no suspicious group of microcalcifications or new suspicious mass. Left breast: There is no suspicious group of microcalcifications or new suspicious mass. Overall Assessment: Negative, BI-RAD 1 Management: Screening Mammogram of both breasts in [address] [facility] will attempt to contact patient to return for supplemental views and ultrasound if indicated. Patient should continue monthly self-breast exams. A clinical breast exam by your physician is recommended on an annual basis. This exam should not preclude additional follow-up of suspicious palpable abnormalities. Note on Polly scores and lifetime risk: 1. A Polly score greater than 3% is considered moderate risk. If this is the case, consider specialist referral to assess eligibility for a risk reducing agent. 2. If overall lifetime risk for the development of breast cancer is 20% or higher, the patient may qualify for future screening with alternating mammogram and breast MRI. Electronically signed and approved by: Yovany Bedoya DO
== END | disposition home or self-care (01) ==
LOC: RADMAMWWP 12:32
PROVIDERS: ATTEND Obstetrics & Gynecology
DX: N95.1 Menopausal and female climacteric states
CPT/HCPCS: 77063; 77067; 77080

== ENCOUNTER → 2024-05-05 | Outpatient (CLI) | payer MEDICARE ==
--- NOTE | 2024-05-05 14:45 | CT ---
EXAMINATION TYPE: CT ChestAbdPelvis w con DATE OF EXAM: 05/05/2024 COMPARISON: 04/13/2022 HISTORY: Rectal Ca. CT DLP: 450 mGycm Automated exposure control for dose reduction was used. CONTRAST: CT scan of the chest, abdomen and pelvis is performed with Oral Contrast and with IV Contrast, patien t injected with 80 mL of Isovue 300. FINDINGS: CT chest: There is no suspicious lung mass or nodule. There is mild pleural-parenchymal scarring in the lung ap ices, right greater than left. There is no abnormal airspace/consolidative density or abnormal interstitial density. There is no pleural effusion, pleural thickening or pneumothorax. The great vessels and chest are normal there is no mediastinal, hilar or axillary adenopathy. No focal osseous lesions are seen. CT abdomen and pelvis: Gallbladder is normal without distention, pericholecystic fluid, wall thickening or gallstone. There is no biliary ductal dilatation. There is no focal mass or organomegaly involving the liver, pancreas, spleen or adrenal glands.. There is no solid renal mass or hydronephrosis. There is no retroperitoneal adenopathy or hemorrhage in the caliber of the abdominal aorta is normal. There are postsurgical changes of colectomy and ostomy in the right upper quadrant of the abdomen. Th ere is no bowel dilatation or obstruction. There are no inflammatory changes in the bowel or mesenter y. There is no free intracranial air or fluid. There is no pelvic mass or adenopathy. There is no free fluid within the pelvis. There is surgical ab sence of uterus. There is marked increase sacral soft tissue which is stable compared to the prior study and is presum ed postsurgical. IMPRESSION: 1. No evidence of recurrent or metastatic disease to the chest, abdomen or pelvis. 2. Presacral soft tissue is stable compared to the prior study and presumed to be postsurgical change . 3. No new abnormality seen.
== END | disposition home or self-care (01) ==
LOC: RADCTMAIN 13:50
PROVIDERS: ATTEND Internal Medicine Hematology & Oncology
DX: C20 Malignant neoplasm of rectum
CPT/HCPCS: 71260; 74177